=== PATIENT | male | born 1950 | race Caucasian/White ===

== ENCOUNTER 2016-03-30 15:57 | Inpatient (IN) | payer MEDICARE, BC ==
[~2016-03-30] VITALS: Ht 182.9 cm; Wt 117.5 kg
[~2016-03-30 15:57] MED LIST: CARV3.125 PO; EFFE150C PO; FOLI1 PO; LISI5 PO; NORC10TA2 PO; ONDA8 PO; OXYB5TAB PO; OXYC1TAB PO; RIVA20 PO; SPIR50TA21 PO; ZOLP10TA3 PO; ZYRT10TA12 PO
[2016-03-30 16:00] VITALS: BP 112/64; PULSE 105; RESP 14; TEMP 97.7; O2SAT 94
[2016-03-30 16:35] VITALS: RESP 18; O2SAT 98
--- NOTE | 2016-03-30 17:01 | PD ---
HPI Chief Complaint: General Weakness Time Seen by Provider: 16:13 Travel History International Travel<30 days: No Contact w/Intl Traveler<30days: No Traveled to known affect area: No History of Present Illness HPI This is a 65-year-old gentleman with an unfortunate history of CLL leukemia, metastatic renal cell carcinoma, who presents today with complaints of profound generalized weakness. The patient states that over the last 2 days, he's been unable to ambulate secondary to global weakness. Patient also reports a mechanical fall 2 days ago where he struck his head. He also reports lateral neck pain bilaterally. He recently came down to the [facility] from [place]. He is established with Dr. Marko Choi for his chemotherapy that is arranged in conjunction with his oncologist in [place]. The patient previously was seen at the [email or web address]] by Dr. Voss, one of the [facility] residents. The patient denies any fevers, chills. He denies any nausea vomiting diarrhea. He was in treated for C. difficile colitis in [place]. The patient denies any watery diarrhea at this time. He does report that his urine is darker than normal and is less output than normal. Patient also reports that he has pain on his skin over his entire body. He states it hurts when he touches skin anywhere on his body. The patient's ex- is at the bedside states that she believes that he may have had a metastatic lesion in his brain as well. The patient does not corroborate this however he is vague in his history. PFSH Past Medical History Hx Anticoagulant Therapy: Yes Anemia: Yes Arthritis: Yes Asthma: No Atrial Fibrillation: Yes Autoimmune Disease: No Blood Disorders: No Anxiety: Yes Depression: Yes Heart Rhythm Problems: Yes (AFIB) Cancer: Yes (KIDNEY AND LUNG CA) Cardiovascular Problems: Yes High Cholesterol: Yes Chemotherapy: Yes (LEUKEMIA/ LEFT KIDNEY CA/ LUNG CA) Chest Pain: Yes Congestive Heart Failure: Yes COPD: No Cerebrovascular Accident: No Diabetes: Yes (history of diabetes ) Patient Takes Glucophage: No Diminished Hearing: No Endocrine: Yes GERD: Yes Genitourinary: Yes (kidney cancer) Headaches: Yes Hiatal Hernia: Yes Hypertension: Yes Immune Disorder: No Implanted Vascular Access Dvce: No Kidney Stones: No Musculoskeletal: Yes Neurologic: Yes Psychiatric: Yes Reproductive: No Respiratory: Yes Immunizations Current: Yes Migraines: No Pneumonia: Yes (hx) Radiation Therapy: No Renal Failure: Yes Seizures: No Sickle Cell Disease: No Sleep Apnea: Yes Thyroid Disease: No Triglycerides - High: Yes Ulcer: No Tetanus Vaccination: < 5 Years Past Surgical History Abdominal Surgery: Yes (PART OF KIDNEY REMOVED (CA)) AICD: No Arteriovenous Shunt: No Body Medical Devices: screws in back Cardiac Surgery: No Ear Surgery: No Endocrine Surgery: No Eye Surgery: No Genitourinary Surgery: No Gynecologic Surgery: No Insulin Pump: No Joint Replacement: No Neurologic Surgery: No Oral Surgery: No Pacemaker: No Thoracic Surgery: No Other Surgery: Yes (left kidney removal) Social History Alcohol Use: No Tobacco Use: No Substance Use: No Allergies-Medications (Allergen,Severity, Reaction): Coded Allergies: Morphine (Unverified Adverse Reaction, Severe, VOMITING, 03/30/16) Reported Meds & Prescriptions Reported Meds & Active Scripts Active Review of Systems Except as stated in HPI: all other systems reviewed are Neg General / Constitutional: No: Fever Eyes: No: Drainage, Redness HENT: Positive: Headaches (right frontal), Lightheadedness, Neck Pain ( bilateral lateral), Other (the patient does report full sensation in his ears bilaterally.), No: Ear Discharge, Earache Cardiovascular: No: Chest Pain or Discomfort, Palpitations Respiratory: Positive: Shortness of Breath (with ambulation), No: Cough Gastrointestinal: Positive: Other (Shola history of C. difficile colitis), No : Nausea, Vomiting, Diarrhea, Abdominal Pain Genitourinary: Positive: Decreased Urinary Output (with darker urine color.), No: Dysuria Musculoskeletal: Positive: Weakness (Toprol weakness), No: Edema Skin: Positive Other (sensitive painful skin to touch over entire body.) Neurologic: Positive: Weakness, Headache (from fall 2 days ago), No: Dizziness , Syncope Physical Exam Narrative GENERAL: Well-developed well-nourished gentleman who appears extremely weak on exam. SKIN: Warm and dry. HEAD: Abrasion to the right forehead. Normocephalic. EYES: No scleral icterus. No injection or drainage. ENT: No nasal bleeding or discharge. Mucous membranes pink and moist. NECK: Trachea midline. No JVD. CARDIOVASCULAR: Rate in the low 90s. There does appear to be some irregularity noted. No ectopy or murmurs appreciated RESPIRATORY: No accessory muscle use. Clear to auscultation. Breath sounds equal bilaterally. Decreased weak respiratory effort GASTROINTESTINAL: Abdomen soft, non-tender, nondistended. MUSCULOSKELETAL: No obvious deformities. No clubbing. No cyanosis. No edema. No lesions or rash noted NEUROLOGICAL: Awake and alert but weak. No obvious cranial nerve deficits. Motor grossly within equal in all 4 extremities. The patient reports extreme weakness and exam is limited. Normal speech. PSYCHIATRIC: Appropriate mood and affect; insight and judgment normal. Data Data Last Documented VS Vital Signs Date Time Temp Pulse Resp B/P Pulse Ox O2 Delivery O2 Flow Rate FiO2 03/30/16 18:00 98.0 92 17 118/77 99 Room Air Orders Electrocardiogram (03/30/16 ) Complete Blood Count With Diff (03/30/16 16:29) Comprehensive Metabolic Panel (03/30/16 16:29) Urinalysis - C+S If Indicated (03/30/16 16:29) Thyroid Stimulating Hormone (03/30/16 16:29) Chest, Single Ap (03/30/16 16:29) Iv Access Insert/Monitor (03/30/16 16:29) Ecg Monitoring (03/30/16 16:29) Oximetry (03/30/16 16:29) Ct Brain W & W/O Iv Contrast (03/30/16 ) Ct Cerv Spine W/O Contrast (03/30/16 ) Sodium Chlor 0.9% 1000 Ml Inj (Ns 1000 M (03/30/16 18:00) Ceftriaxone Inj (Rocephin Inj) (03/30/16 18:30) Azithromycin Inj (Zithromax Inj) (03/30/16 18:30) Iodixanol 320 Inj (Rad Ct) (Visipaque 32 (03/30/16 18:32) Labs Laboratory Tests Test 03/30/16 16:00 White Blood Count 46.3 TH/MM3 Red Blood Count 2.22 MIL/MM3 Hemoglobin 9.3 GM/DL Hematocrit 27.8 % Mean Corpuscular Volume 125.0 FL Mean Corpuscular Hemoglobin 41.8 PG Mean Corpuscular Hemoglobin 33.4 % Concent Red Cell Distribution Width 29.0 % Platelet Count 123 TH/MM3 Mean Platelet Volume 12.0 FL Neutrophils (%) (Auto) % Lymphocytes (%) (Auto) % Monocytes (%) (Auto) % Eosinophils (%) (Auto) % Basophils (%) (Auto) % Neutrophils # (Auto) TH/MM3 Lymphocytes # (Auto) TH/MM3 Monocytes # (Auto) TH/MM3 Eosinophils # (Auto) TH/MM3 Basophils # (Auto) TH/MM3 CBC Comment AUTO DIFF Differential Total Cells 100 Counted Neutrophils % (Manual) 7 % Band Neutrophils % 1 % Lymphocytes % 88 % Monocytes % 4 % Neutrophils # (Manual) 3.7 TH/MM3 Differential Comment FINAL DIFF MANUAL Smudge Cells PRESENT Platelet Estimate LOW Platelet Morphology Comment NORMAL Ovalocytes 1+ Sodium Level 136 MEQ/L Potassium Level 4.9 MEQ/L Chloride Level 98 MEQ/L Carbon Dioxide Level 24.6 MEQ/L Anion Gap 13 MEQ/L Blood Urea Nitrogen 23 MG/DL Creatinine 1.35 MG/DL Estimat Glomerular Filtration 53 ML/MIN Rate Random Glucose 122 MG/DL Calcium Level 8.4 MG/DL Total Bilirubin 1.5 MG/DL Aspartate Amino Transf 49 U/L (AST/SGOT) Alanine Aminotransferase 30 U/L (ALT/SGPT) Alkaline Phosphatase 198 U/L Total Protein 5.9 GM/DL Albumin 2.6 GM/DL Thyroid Stimulating Hormone 4.440 uIU/ML 3rd Gen [facility] Medical Decision Making Medical Screen Exam Complete: Yes Emergency Medical Condition: Yes Differential Diagnosis Pneumonia versus UTI versus dehydration versus electrolyte abnormality versus anemia versus worsening metastatic disease. Narrative Course 65 year-old gentleman unfortunate history of CLL leukemia, renal so with metastases to the lungs, who presents today with complaints of global generalized weakness. He was, chills. He denies any productive cough. The patient's chest x-ray shows what appears to be an obstructive pneumonia. CT the brain is negative for acute intracranial process. White count is elevated in the 44,000 which is consistent with his previous blood work from the CLL. He does have acute kidney injury where his creatinine has elevated from the 1. once to the 1.5. He's been started on Rocephin and Zithromax for the pneumonia. He's also been started and I V fluids. Given his complexity of his history and illness, he will be made a full admission. The case been discussed with [facility]. Danielson, [facility], who has been gracious enough to admit the patient to her service. Nurse's notes were reviewed. This includes past family and surgical history as well as past medical history. Diagnosis Primary Impression: Pneumonia Additional Impressions: Acute on chronic renal insufficiency Weakness A-fib Anemia Scripts Unable to Obtain Active Prescriptions or Reported Meds Rene Araya MD Mar 30, 2016 17:01
[2016-03-30 17:10] LABS: HEMATOCRIT 27.8 % (39.0-51.0); MEAN CORPUSCULAR HEMOGLOBIN 41.8 PG (27.0-34.0); MEAN CORPUSCULAR HGB CONC 33.4 % (32.0-36.0); PLATELET COUNT 123 TH/MM3 (150-450); RED BLOOD COUNT 2.22 MIL/MM3 (4.50-5.90); WHITE BLOOD COUNT 46.3 TH/MM3 (4.0-11.0)
[2016-03-30 17:11] LABS: ALT (GPT) 30 U/L (12-78); ANION GAP 13 MEQ/L (5-15); AST (GOT) 49 U/L (15-37); BICARBONATE 24.6 MEQ/L (21.0-32.0); BLOOD UREA NITROGEN 23 MG/DL (7-18); CHLORIDE 98 MEQ/L (98-107); GLOMERULAR FILTRATION RATE 53 ML/MIN (>89); POTASSIUM 4.9 MEQ/L (3.5-5.1); SODIUM (NA) 136 MEQ/L (136-145)
--- NOTE | 2016-03-30 17:11 | RADRPT ---
EXAM DATE/TIME: 03/30/2016 16:32 [facility] COMPARISON: CHEST SINGLE AP, June 11, 2015, 17:37. INDICATIONS : Short of breath MEDICAL HISTORY : Leukemia. Carcinoma, lung. Carcinoma, renal cell. SURGICAL HISTORY : None. ENCOUNTER: Initial ACUITY: 1 day PAIN SCORE: 0/10 LOCATION: Bilateral chest FINDINGS: A single AP semierect view of the chest was obtained and demonstrates a new small to moderate left ef fusion with mild consolidation in the left lung base and infrahilar region with air bronchograms. The re is faint nodularity in the right upper lobe and along the lateral chest wall. The right lung remai ns clear. The bony thorax is intact. The heart size is within normal limits. CONCLUSION: 1. New left pleural effusion with consolidation the left lung base. The findings could indicate pneum onia which may be postobstructive given the history of lung cancer. 2. Faint nodularity in the left lung which could represent metastatic disease. Ziyad Lyon MD on March 30, 2016 at 17:07 Board Certified Radiologist. This report was verified electronically.
[2016-03-30 17:21] LABS: ALKALINE PHOSPHATASE 198 U/L (45-117); TOTAL BILIRUBIN ADULT 1.5 MG/DL (0.2-1.0)
[2016-03-30 17:27] LABS: HEMO FLAGS AUTO DIFF
[2016-03-30 17:58] LABS: BANDS 1 % (0-6); NEUTROPHIL # MANUAL DIFF 3.7 TH/MM3 (1.8-7.7); WBC DIFF SAMPLE 100
[2016-03-30 18:00] VITALS: BP_SYST 118; BP_SYST 154; BP_DIAS 66; BP_DIAS 77; PULSE 87; PULSE 92; RESP 17; TEMP 98; O2SAT 98; O2SAT 99
[2016-03-30] MEDS ORDERED: SODIUM CHLOR 0.9% 1000 ML INJ 1,000 ML IV SCH (18:00)
[2016-03-30 18:04] LABS: OVALOCYTES 1+ (NORMAL); PLATELET ESTIMATE SMEAR LOW (NORMAL); PLATELET MORPHOLOGY NORMAL (NORMAL); SCAN/DIFF FINAL DIFF MANUAL; SMUDGE CELLS PRESENT PRESENT
[2016-03-30 18:06] LABS: POLYS (SEG NEUTROPHILS) 7 % (16-70)
[2016-03-30] MEDS ORDERED: cefTRIAXone INJ 1,000 MG in SODIUM CHLORIDE 0.9% INJ 100 ML IV ONE (18:30)
[2016-03-30] MEDS ORDERED: AZITHROMYCIN INJ 500 MG in SODIUM CHLOR 0.9% 250 ML INJ 250 ML IV ONE (18:30)
[2016-03-30] MEDS ORDERED: IODIXANOL 320 MG/ML 10 ML VIAL (for Rad CT) IV ONE (18:32)
--- NOTE | 2016-03-30 18:55 | RADRPT ---
EXAM DATE/TIME: 03/30/2016 18:14 [facility] COMPARISON: No previous studies available for comparison. INDICATIONS : Trauma, fall. Possible metastatic disease. IV CONTRAST: 50 cc Visipaque (iodixanol) IV RADIATION DOSE: 32.42 CTDIvol (mGy) MEDICAL HISTORY : Cardiovascular disease. Hypertension. Diabetes mellitus type 2.Carcinoma, renal. Leukemia. SURGICAL HISTORY : Nephrectomy, left. ENCOUNTER: Initial ACUITY: 2 days PAIN SCALE: 5/10 LOCATION: cranial TECHNIQUE: Multiple contiguous axial images were obtained of the head. Using automated exposure control and adj ustment of the mA and/or kV according to patient size, radiation dose was kept as low as reasonably a chievable to obtain optimal diagnostic quality images. FINDINGS: CEREBRUM: The ventricles are normal for age. No evidence of midline shift, cerebral edema or blood products. No extra-axial fluid collections are seen. POSTERIOR FOSSA: The cerebellum and brainstem are intact. The 4th ventricle is midline. The cerebellar pontine angle is unremarkable. EXTRACRANIAL: The visualized portion of the orbits is intact. SKULL: The calvaria is intact. No evidence of skull fracture. POST CONTRAST: No abnormal areas of parenchymal or dural enhancement. No evidence of blood-brain barrier breakdown. CONCLUSION: Normal examination. Bill Branch MD on March 30, 2016 at 18:52 Board Certified Radiologist. This report was verified electronically.
--- NOTE | 2016-03-30 18:58 | RADRPT ---
EXAM DATE/TIME: 03/30/2016 18:14 [facility] COMPARISON: No previous studies available for comparison. INDICATIONS : Trauma, fall. RADIATION DOSE: 15.27 CTDIvol (mGy) MEDICAL HISTORY : Cardiovascular disease. Hypertension. Diabetes mellitus type 2. SURGICAL HISTORY : Nephrectomy, left. ENCOUNTER: Initial ACUITY: 2 days PAIN SCALE: 5/10 LOCATION: neck TECHNIQUE: Volumetric scanning of the cervical spine was performed. Multiplanar reconstructions in the sagittal, coronal and oblique axial planes were performed. Using automated exposure control and adjustment o f the mA and/or kV according to patient size, radiation dose was kept as low as reasonably achievable to obtain optimal diagnostic quality images. FINDINGS: There is moderate to severe degenerative disc disease in the lower cervical spine with slight reversa l of normal cervical lordosis. No acute fracture or significant spondylolisthesis. Mild AP canal sten osis at C5-6-7. No prevertebral soft tissue swelling. CONCLUSION: 1. No acute findings. Mild spinal stenosis in the lower cervical spine Bill Branch MD on March 30, 2016 at 18:54 Board Certified Radiologist. This report was verified electronically.
[2016-03-30 19:12] VITALS: BP 118/71; PULSE 88; RESP 20; O2SAT 94
[2016-03-30] MEDS ORDERED: ACETAMINOPHEN 325 MG TAB PO PRN (19:30)
[2016-03-30] MEDS ORDERED: SODIUM CHLORIDE 0.9% FLUSH 5 ML FLUSH FLUSH PRN (19:30)
[2016-03-30] MEDS ORDERED: ACETAMINOPHEN/HYDROcodone 325 MG/5 MG TAB PO PRN (19:30)
[2016-03-30] MEDS ORDERED: ONDANSETRON HCL 4 MG/2 ML VIAL IVP PRN (19:30)
[2016-03-30] MEDS ORDERED: RESP: ALBUTEROL 2.5 MG/IPRATROPIUM 0.5 MG NEB (PRN) NEB (19:30)
[2016-03-30] MEDS ORDERED: Vancomycin Consult Pharmacy 1 EA OTHER SCH (19:30)
[2016-03-30] MEDS ORDERED: BISACODYL 10 MG SUPP PR PRN (19:30)
--- NOTE | 2016-03-30 19:30 | HHI.HP ---
[facility] Unknown Admission Diagnosis pneumonia, a [employer], malignancy Diagnoses: (1) Sepsis Diagnosis: Principal (2) PNA (pneumonia) Diagnosis: Principal (3) C. 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 Per pt and Ex- he had been up in [place] where he resides half of the year, was hospitalized and diagnosed w/ C Diff Colitis and sent to Rehab facility. Per Ex- pt wasn't happy at Rehab facility and had friend drive him back down to [facility]. Ex- checks up on him and today was unable to stand him up due to weakness. Follows w/ Dr. Corral, currently on Chemotherapy for Renal Cell CA. On arrival, BP 112/64, HR 105, O2 sat 94% on RA, Afebrile. W WBC 46.3, previously 48.3 on 03/28/16. Creatinine 1.35, previously 1.50 on 03/28/16. UA with trace LE and mild bacteriuria. CXR with new left pleural effusion and consolidation of left lung base, possibly pneumonia versus postobstructive, faint nodularity left lung which could represent metastatic disease. CT Head with no acute findings. CT Neck with no acute findings. Per Ex-, pt told he had a "brain tumor" up in [place]. S/p Rocephin/Zithro in ER. Review of Systems Except as stated in HPI: all other systems reviewed are Neg ROS: 14 point review of systems otherwise negative. Past Family Social History Past Medical History PMH: CLL, h/o PE on Xarelto, Renal Cell CA w/ Pulmonary Mets, s/p Left Nephrectomy, CAD, COPD, C Diff Colitis and DM Past Surgical History PAST SURGICAL HISTORY: Vasectomy, Left Nephrectomy 2012, Bone Marrow Biopsy Allergies: Coded Allergies: Morphine (Unverified Adverse Reaction, Severe, VOMITING, 03/30/16) Family History PAST FAMILY HISTORY: Reviewed. No h/o DM or CAD Social History PAST SOCIAL HISTORY: Negative for alcohol, tobacco or drugs. Physical Exam Vital Signs Vital Signs Date Time Temp Pulse Resp B/P Pulse Ox O2 Delivery O2 Flow Rate FiO2 03/30/16 19:12 88 20 118/71 94 Room Air 03/30/16 18:00 98.0 92 17 118/77 99 Room Air 03/30/16 16:35 18 98 Room Air 03/30/16 16:20 87 18 98 Room Air 03/30/16 16:00 97.7 105 14 112/64 94 Room Air Physical Exam PE: GENERAL: Middle-aged male in no acute distress. Ex- at bedside. HEENT: PERRLA, EOMI. No scleral icterus or conjunctival pallor. No lid lag or facial droop. Right forehead abrasion. CARDIOVASCULAR: Regular rate and rhythm. No obvious murmurs to auscultation. No chest tenderness to palpation. RESPIRATORY: No obvious rhonchi or wheezing. Clear to auscultation. Breath sounds equal bilaterally. GASTROINTESTINAL: Abdomen soft, non-tender, nondistended. BS normal. MUSCULOSKELETAL: Extremities without clubbing, cyanosis, or edema. No obvious deformities. NEUROLOGICAL: Awake, alert and oriented x4. No focal neurologic deficits. Moving both upper and lower extremities spontaneously, very weak. Laboratory Laboratory Tests Test 03/30/16 16:00 White Blood Count 46.3 Red Blood Count 2.22 Hemoglobin 9.3 Hematocrit 27.8 Mean Corpuscular Volume 125.0 Mean Corpuscular Hemoglobin 41.8 Mean Corpuscular Hemoglobin 33.4 Concent Red Cell Distribution Width 29.0 Platelet Count 123 Mean Platelet Volume 12.0 Neutrophils (%) (Auto) Lymphocytes (%) (Auto) Monocytes (%) (Auto) Eosinophils (%) (Auto) Basophils (%) (Auto) Neutrophils # (Auto) Lymphocytes # (Auto) Monocytes # (Auto) Eosinophils # (Auto) Basophils # (Auto) CBC Comment AUTO DIFF Differential Total Cells 100 Counted Neutrophils % (Manual) 7 Band Neutrophils % 1 Lymphocytes % 88 Monocytes % 4 Neutrophils # (Manual) 3.7 Differential Comment FINAL DIFF MANUAL Smudge Cells PRESENT Platelet Estimate LOW Platelet Morphology Comment NORMAL Ovalocytes 1+ Sodium Level 136 Potassium Level 4.9 Chloride Level 98 Carbon Dioxide Level 24.6 Anion Gap 13 Blood Urea Nitrogen 23 Creatinine 1.35 Estimat Glomerular Filtration 53 Rate Random Glucose 122 Calcium Level 8.4 Total Bilirubin 1.5 Aspartate Amino Transf 49 (AST/SGOT) Alanine Aminotransferase 30 (ALT/SGPT) Alkaline Phosphatase 198 Total Protein 5.9 Albumin 2.6 Thyroid Stimulating Hormone 4.440 3rd Gen Result Diagram: 03/30/16 1600 03/30/16 1600 Assessment and Plan Problem List: (1) Sepsis ICD Code: A41.9 Status: Acute (2) PNA (pneumonia) ICD Code: J18.9 Status: Acute (3) C. difficile colitis ICD Code: A04.7 Status: Acute (4) Muscular deconditioning ICD Code: R29.898 Status: Acute (5) Renal insufficiency ICD Code: N28.9 Status: Acute (6) Renal cell carcinoma ICD Code: C64.9 Status: Acute (7) DM (diabetes mellitus) ICD Code: E11.9 Status: Chronic (8) CLL (chronic lymphocytic leukemia) ICD Code: C91.10 Status: Acute Assessment and Plan A/P: 1. Sepsis: HR 105, WBC 46 although underlying CLL, Source-PNA. S/p Rocephin/ Zithro. Obtain Blood Cultures, start Vanc/Cefepime as Immunocompromised on Chemotherapy. Follow up cultures. 2. PNA: CXR w/ new left pleural effusion and consolidation of left lung base with faint nodularity and left lung possibly metastatic disease, images reviewed by me. Known h/o Renal Cell w/ Pulmonary Mets. Continue IV Abx, DuoNeb prn. 3. C Diff Colitis: s/p diagnosis during recent admit in [place], currently on Flagyl. C Diff antigen positive, persistent infection despite improved diarrhea. Isolation. Continue Flagyl PO. 4. Deconditioning: Likely Multifactorial-CLL, Renal Cell w/ Mets, PNA, C Diff. Unable to stand due to profound weakness. PT for german/tx. Case Management. Pt reluctant to discuss Hospice at this time. 5. Renal Insufficiency: Acute on Chronic. Creatinine 1.35, previously 1.50 on 03/28/16. U/a w/ mild bacteriuria. IVF, repeat labs in am. 6. Renal Cell CA: w/ Pulmonary Mets. Ex- notes imaging in [place] positive for "brain tumor", no records available at this time. CT Head w/ no acute findings, images reviewed by me. Will check MRI Brain for further eval. Hold anticoagulation for possible [employer] mets-on Xarelto for h/o PE. Consult Dr. Corral for further recommendations. 7. CLL: Stable. Following w/ Dr. Corral, will consult as above. 8. DM: Sliding scale w/ Accu-Cheks. Not on home meds per medication list. 9. DVT Prophylaxis: SCD/Teds. 10. Social work for d/c planning as needed 11. Case discussed w/ ER physician at length. Physician Certification 2 Midnight Certification Type: Admission for Inpatient Services Order for Inpatient Services The services are ordered in accordance with Medicare regulations or non- Medicare payer requirements, as applicable. In the case of services not specified as inpatient-only, they are appropriately provided as inpatient services in accordance with the 2-midnight benchmark. Estimated LOS (days): 2 days is the estimated time the patient will need to remain in the hospital, assuming treatment plan goals are met and no additional complications. Post-Hospital Plan: Not yet determined Yumiko Toney MD Mar 30, 2016 19:30
[2016-03-30] MEDS ORDERED: VANCOMYCIN INJ 2,500 MG in SODIUM CHLORID 0.9% 500 ML INJ 500 ML IV ONE (20:00)
[2016-03-30] MEDS: SODIUM CHLOR 0.9% 1000 ML INJ 1,000 ML IV SCH (20:18)
[2016-03-30 20:29] LABS: BLOOD, URINE NEG (NEG); COMMENT (UR) CULT NOT INDICATED; CULTURE IF INDICATED CULT NOT INDICATED; GLUCOSE,URINE NEG (NEG); HYALINE CAST, URINE 8 /lpf (RARE); KETONE, URINE NEG (NEG); NITRITE,URINE NEG (NEG); SQUAMOUS EPITHELIAL CELL URINE <1 /hpf (0-5); URINE COLOR YELLOW (YELLW/STRAW)
[2016-03-30] MEDS: SODIUM CHLORIDE 0.9% FLUSH 5 ML FLUSH FLUSH SCH (21:37)
[2016-03-30] MEDS: metroNIDAZOLE 500 MG TAB PO SCH (22:09)
[2016-03-30] MEDS: HYDROmorphone HCL PF 1 MG/ML VIAL IV PRN (22:09)
[2016-03-30 23:30] VITALS: BP 142/81
[2016-03-30] MEDS: ZOLPIDEM TARTRATE 5 MG TAB PO PRN (23:52)
[2016-03-31] VITALS (11 sets, daily range): BP systolic 131–163; BP diastolic 74–97; PULSE 80–91; RESP 16–20; TEMP 96–98.4; O2SAT 92–97
[2016-03-31] MEDS: HYDROmorphone HCL PF 1 MG/ML VIAL IV PRN (03:40)
[2016-03-31] MEDS: metroNIDAZOLE 500 MG TAB PO SCH ×3 (05:31→21:26)
[2016-03-31] MEDS: SODIUM CHLOR 0.9% 1000 ML INJ 1,000 ML IV SCH ×2 (05:31→17:55)
[2016-03-31 06:54] LABS: HEMATOCRIT 22.2 % (39.0-51.0); MEAN CELL VOLUME 122.7 FL (80.0-100.0); MEAN CORPUSCULAR HEMOGLOBIN 41.1 PG (27.0-34.0); MEAN CORPUSCULAR HGB CONC 33.5 % (32.0-36.0); PLATELET COUNT 86 TH/MM3 (150-450); RED BLOOD COUNT 1.81 MIL/MM3 (4.50-5.90); RED CELL DISTRIBUTION WIDTH 28.3 % (11.6-17.2); WHITE BLOOD COUNT 32.7 TH/MM3 (4.0-11.0)
[2016-03-31 07:12] LABS: CALCIUM-PROTEIN CORRECTED 8.6 MG/DL (8.5-10.1); POTASSIUM 3.9 MEQ/L (3.5-5.1); TOTAL BILIRUBIN ADULT 0.9 MG/DL (0.2-1.0)
[2016-03-31 07:16] LABS: HEMO FLAGS AUTO DIFF
[2016-03-31] MEDS ORDERED: SODIUM CHLOR 0.9% 250 ML INJ 250 ML IV ONE (07:30)
[2016-03-31] MEDS ORDERED: ACETAMINOPHEN 325 MG TAB PO PRN (07:30)
[2016-03-31] MEDS ORDERED: diphenhydrAMINE HCL 25 MG CAP PO PRN (07:30)
[2016-03-31 09:06] LABS: EOSINOPHILS 1 % (0-4); NEUTROPHIL # MANUAL DIFF 0.7 TH/MM3 (1.8-7.7); POLYS (SEG NEUTROPHILS) 2 % (16-70); WBC DIFF SAMPLE 100
[2016-03-31 09:08] LABS: SCAN/DIFF FINAL DIFF MANUAL; SMUDGE CELLS PRESENT PRESENT
[2016-03-31 09:09] LABS: PLATELET ESTIMATE SMEAR LOW (NORMAL); PLATELET MORPHOLOGY NORMAL (NORMAL)
[2016-03-31] MEDS ORDERED: GADODIAMIDE PF 287 MG/ML 20 ML VIAL (for RAD MRI) IV ONE (09:32)
--- NOTE | 2016-03-31 10:12 | RADRPT ---
EXAM DATE/TIME: 03/31/2016 09:02 [facility] COMPARISON: No previous studies available for comparison. INDICATIONS : Lymphoma. ORAL CONTRAST: No oral contrast ingested. RADIATION DOSE: 19.00 CTDIvol (mGy) ; Combined studies - Thorax/Abdomen/Pelvis MEDICAL HISTORY : Cardiovascular disease. Hypertension. Gastroesophageal reflux disease.Diabetes. Leukemia. Kidney canc er. Lung cancer. SURGICAL HISTORY : Nephrectomy, left. Back surgery. ENCOUNTER: Initial ACUITY: 1 day PAIN SCALE: 0/10 LOCATION: abdomen TECHNIQUE: Volumetric scanning of the abdomen and pelvis was performed. Using automated exposure control and ad justment of the mA and/or kV according to patient size, radiation dose was kept as low as reasonably achievable to obtain optimal diagnostic quality images. FINDINGS: Pleural and parenchymal changes are seen on the left. Moderate fluid is noted. The right lung base is clear. The liver is free of focal defects. The spleen, pancreas, adrenals are unremarkable. There is no left kidney. 3.5 cm cyst is seen on the right kidney. . There is 3.9 cm mesenteric mass at the root of mesentery on the left. Pelvic contents are unremarkable Review of bone windows reveals only degenerative changes. CONCLUSION: 3.9 cm mesenteric mass root of mesentery on the left not imaged previously. I have n o recent films for comparison. Braeden Edward MD FACR on March 31, 2016 at 10:06 Board Certified Radiologist. This report was verified electronically.
--- NOTE | 2016-03-31 10:23 | RADRPT ---
EXAM DATE/TIME: 03/31/2016 09:02 [facility] COMPARISON: CT PULMONARY ANGIOGRAM, May 07, 2014, 11:01. INDICATIONS: Lymphoma. RADIATION DOSE: 19.00 CTDIvol (mGy) ; Combined studies - Thorax/Abdomen/Pelvis MEDICAL HISTORY: Cardiovascular disease. Hypertension. Gastroesophageal reflux disease. Diabetes. Leukemia. Kidney can cer. Lung cancer. SURGICAL HISTORY: Nephrectomy, left. Back surgery. ENCOUNTER: Initial ACUITY: 1 day PAIN SCALE: 0/10 LOCATION: Chest TECHNIQUE: Volumetric scanning of the chest was performed. Using automated exposure control and adjustment of t he mA and/or kV according to patient size, radiation dose was kept as low as reasonably achievable to obtain optimal diagnostic quality images. FINDINGS: Again seen is the large pleural effusion on the left. There is some loculation to this fluid. The right lung is clear. Very minimal parenchymal changes are seen along the pleura on the right. There is no axially adenopathy. There is minimal nonspecific mediastinal adenopathy present in the p retracheal region. This has improved in the interval when compared to the CT of the chest dated 05/07/14. CONCLUSION: 1. Increasing pleural changes on the left. 2. Decreasing pleural and parenchymal changes on the right. Braeden Edward MD FACR on March 31, 2016 at 10:10 Board Certified Radiologist. This report was verified electronically.
[2016-03-31] MEDS ORDERED: HYDROmorphone HCL PF 1 MG/ML VIAL IV PRN (10:30)
[2016-03-31] MEDS: CEFEPIME INJ 1,000 MG in SODIUM CHLORIDE 0.9% INJ 100 ML IV SCH ×2 (10:40→21:26)
[2016-03-31] MEDS: SODIUM CHLORIDE 0.9% FLUSH 5 ML FLUSH FLUSH SCH ×2 (10:43→21:27)
[2016-03-31 11:23] LABS: RETIC % 2.1 % (0.4-3.0)
[2016-03-31 11:24] LABS: REVIEW FLAG FINAL
--- NOTE | 2016-03-31 11:31 | MB ---
cc: HAYDEN BLACKWOOD M.D. DATE OF CONSULTATION 03/31/[address] Mae HISTORY OF PRESENT ILLNESS The patient is a 66-year-old male with a history of metastatic renal cell carcinoma currently on Votrient who presented to the hospital with increased weakness and fatigue. The patient stated that over the last two days he is just getting weaker to the point he could not even lift up his leg. His ex- brought him to the hospital. The patient has had a history of metastatic renal cell carcinoma with metastasis to the lung. He has been on Votrient. He also has a history of chronic lymphocytic leukemia, but is currently not under any treatment. He was in [place] for the summer and he was found to have progression of metastatic renal cell carcinoma with a new development of malignant and pleural effusion. He was also admitted to the hospital for C-difficile colitis. When I saw him in February, he started having diarrhea again and found to have recurrent C-difficile colitis. He was given Flagyl with a good response. When I saw him last week, his diarrhea had resolved. He then restarted taking the Votrient last week. He was doing well until two days ago when he suddenly became very weak. He denies any fever, chills or night sweat. He denies any chest pain or palpitation. He denies significant shortness of breath or cough. He had mild nausea. Denies any abdominal pain. Denies any significant diarrhea. Denies abdominal pain. Denies any dysuria or hematuria. Denies any headache. Denies any visual changes, focal numbness or weakness. He has diffuse muscle ache in his arm and leg. PAST MEDICAL HISTORY 1. Metastatic renal cell carcinoma 2. Chronic lymphocytic leukemia 3. C-difficile colitis 4. Pulmonary embolism in 2013 current on Xarelto 5. Coronary disease 6. Chronic obstructive pulmonary disease 7. Diabetes mellitus 8. Anemia 9. Anxiety 10. Osteoarthritis PAST SURGICAL HISTORY 1. Left nephrectomy 2012 2. Vasectomy 3. Bone marrow biopsy FAMILY HISTORY Noncontributory SOCIAL HISTORY Denies tobacco or alcohol use. He spends his winter in [place]. ALLERGIES MORPHINE CURRENT MEDICATIONS 1. Cefepime 2. Ambien 3. Flagyl 4. Votrient which is on hold. 5. He also had a dose of Ceftriaxone. 6. Vancomycin 7. Azithromycin REVIEW OF SYSTEMS CONSTITUTIONAL: He has increased weakness. Denies any fever, chills, or night sweat. EYES: Denies any blurred vision or double vision. ENT: Denies any mouth sores or voice changes. CARDIOVASCULAR: No chest pressure or palpitations. RESPIRATORY: Denies shortness of breath or cough. GI: Denies significant diarrhea. He has nausea. He has abdominal pain. He denies melena or hematochezia. : No dysuria or hematuria. MUSCULOSKELETAL: Diffuse muscle ache. HEMATOLOGY: As above. ENDOCRINE: Negative. DERMATOLOGY: Negative. PSYCHIATRIC: Negative. NEUROLOGIC: Diffuse weakness. PHYSICAL EXAMINATION VITAL SIGNS: Temperature 97.3, blood pressure 150/88, O2 saturation 95%. GENERAL: He is alert and oriented x3. He still a little sleepy after taking a sedative. HEENT: Atraumatic, normocephalic. Pupils equal, round and reactive to light. Extraocular muscle intact. No scleral icterus. Oropharynx, dry mucosa. No lesion or thrush or mucositis. NECK: No thyromegaly. No palpable mass. LYMPHATICS: No palpable cervical, clavicular, axillary or inguinal lymph node. CARDIOVASCULAR: Regular S1-S2, no murmur. LUNGS: Clear to auscultation bilaterally without wheezing or rhonchi. ABDOMEN: Soft, nontender, positive bowel sounds. I could not palpate the liver or spleen. EXTREMITIES: No cyanosis, no clubbing or significant edema. He has diffuse muscle aches in the leg and arm. BACK: No paravertebral tenderness. SKIN: No rash or petechia. NEUROLOGIC: Exam is nonfocal. LABORATORY DATA Reviewed ASSESSMENT 1. Possible sepsis. He may have possible pneumonia. Chest x-ray showed a new left pleural effusion with consolidation in the left lung base which could be pneumonia. Clinically, he does not have significant shortness of breath or cough. He developed increased weakness over the last two days. He was started on empiric antibiotic. 2. Generalized weakness which started two days ago. This could be due to sepsis, but it could also be due to the Votrient. He started the Votrient last week after he took a break because of diarrhea. We will put Votrient on hold for now. 3. Metastatic renal cell carcinoma. He was first diagnosed in 2013 status post left nephrectomy. He was found to have a metastatic lung lesion. He was treated with Sutent, but had to stop due to side effects. He was started on Turicel, but developed progression of disease. He was then started on Votrient October 2014. He had developed liver failure and congestive heart failure and the dose was reduced. Last year the Votrient was temporarily put on hold because he developed significant anemia and possible pneumonitis. When he went back up to [place], he was found to have worsening left pleural effusion. He had a thoracentesis and found to have malignant pleural effusion consistent with metastatic renal cell carcinoma. He was then started back on Votrient 600 mg daily[address] His last CT scan in January reportedly showed stable disease. I am going to get another set of CT scans to further evaluate the lung to see if he has progression of disease or if he had developed a pneumonitis due to Votrient which could be causing his symptoms rather than pneumonia. 4. Right kidney mass. CT showed a 3.2 cm complex cyst which has been stable. 5. Chronic lymphocytic leukemia. He is currently under observation. His white blood cell count is stable at 46,000. He does have anemia and mild thrombocytopenia, but that may be due to Votrient rather than the chronic lymphocytic leukemia. 6. Anemia which is chronic and is likely a combination of Votrient, as well as CLL. Recently we did a workup for hemolysis which was unremarkable. This morning his hemoglobin had trended down to 7.5. I am going to repeat the hemolysis workup. We will give him a transfusion given that he is symptomatic. 7. Recent C-difficile colitis. He was treated for C-difficile colitis when he was in [place]. When he came down to [place] a few weeks ago, he had recurring diarrhea and found to have recurrent C-difficile colitis. He completed another course of Flagyl. He denies any diarrhea at this time. He has no abdominal pain. 8. History of pulmonary embolism 2013. He is currently on Xarelto. He has no new pulmonary symptoms. 9. Peripheral neuropathy from diabetes. 10. Osteoarthritis 11. Diabetes mellitus PLAN 1. Hold Votrient. 2. Arrange for a CT of the chest, abdomen and pelvis. 3. Continue empiric antibiotic. 4. Proceed with anemia workup. 5. Arrange for two units of packed red blood cell transfusion. Thank you Dr. Mae for asking us to see this patient. We will follow with you. MD JONATHAN Salazar/CECILIO /8:57 AM /11:10 AM MAGO
[2016-03-31 11:47] LABS: TRANSFERRIN IRON PROFILE 112 MG/DL (200-360)
[2016-03-31 12:12] LABS: FERRITIN 2296 NG/ML (26-388); LDH SERUM 305 U/L (87-241)
--- NOTE | 2016-03-31 12:23 | HHI.PR ---
Subjective Remarks Follow-up visit pneumonia, renal cancer on chemotherapy, history of PE on Xarelto, C. difficile colitis. Patient seen today. He went for MRI studies, CT of the abdomen and pelvis. Reports generalized pain, /10, states unable to even touch his skin secondary to pain. States he uses Holman at home when necessary. Reports formed stools but states he has C. difficile from the hospital in [place] and was treated for it for more than a month with Flagyl and also by mouth vancomycin. Otherwise, denies SOB/ dyspnea. Denies chest pain, palpitations, headaches, dizziness. Denies fevers, chills, n/v/d. Objective Vitals Vital Signs Date Time Temp Pulse Resp B/P Pulse Ox O2 Delivery O2 Flow Rate FiO2 03/31/16 08:10 81 03/31/16 08:00 98.1 84 20 131/77 92 03/31/16 04:00 97.3 83 18 150/88 95 03/31/16 00:29 97.7 91 18 149/89 94 03/30/16 23:30 86 18 142/81 93 03/30/16 19:12 88 20 118/71 94 Room Air 03/30/16 18:00 98.0 92 17 118/77 99 Room Air 03/30/16 16:35 18 98 Room Air 03/30/16 16:20 87 18 98 Room Air 03/30/16 16:00 97.7 105 14 112/64 94 Room Air I/O 03/30/16 03/30/16 03/30/16 03/31/16 03/31/16 03/31/16 07:00 15:00 23:00 07:00 15:00 23:00 Intake Total 200 ml 240 ml Output Total 380 ml Balance 200 ml -140 ml Intake Oral 200 ml 240 ml Output Urine Total 380 ml # Bowel Movements 0 1 Result Diagram: 03/31/16 0607 03/31/16 0607 Imaging Last Impressions Abdomen/Pelvis CT 03/31/16 0000 Signed Impressions: Service Date/Time: Thursday, March 31, 2016 09:02 - CONCLUSION: 3.9 cm mesenteric mass root of mesentery on the left not imaged previously. I have no recent films for comparison. Braeden Edward MD FACR Chest X-Ray 03/30/16 4489 Signed Impressions: Service Date/Time: March 16:32 - CONCLUSION: 1. New left pleural effusion with consolidation the left lung base. The findings could indicate pneumonia which may be postobstructive given the history of lung cancer. 2. Faint nodularity in the left lung which could represent metastatic disease. Ziyad Lyon MD Head CT 03/30/16 0000 Signed Impressions: Service Date/Time: March 18:14 - CONCLUSION: Normal examination. Bill Branch MD Cervical Spine CT 03/30/16 0000 Signed Impressions: Service Date/Time: March 18:14 - CONCLUSION: 1. No acute findings. Mild spinal stenosis in the lower cervical spine Bill Branch MD Objective Remarks GENERAL: This is a pale-appearing male, well-developed patient, appears uncomfortable. HEENT: Normocephalic. Pupils equal round and reactive. Nose without bleeding. Airway patent. NECK: Trachea midline. No JVD. Supple. CARDIOVASCULAR: Regular rate and rhythm without murmurs, gallops, or rubs. RESPIRATORY: Diminished bases. No wheezes, rales, or rhonchi. GASTROINTESTINAL: Abdomen soft, non-tender, nondistended. Bowel Sounds normoactive x4. MUSCULOSKELETAL: Extremities without clubbing, cyanosis, +1 bilateral lower extremity edema. NEUROLOGICAL: Awake and alert. Oriented x 3. No focal neuro deficit. MARQUEZ. Normal speech. Medications and IVs Current Medications Medications (Trade) Dose Ordered Sig/Asia Route Start Time Stop Time Status Last Admin Pharmacy Profile Note 0 ml @ 0 mls/hr UNSCH OTHER 03/30/16 19:30 Cefepime HCl 1000 mg/Sodium Chloride 100 ml @ 200 mls/hr Q12H IV 03/31/16 09:00 03/31/16 10:40 (NS 1000 ml Inj) 1,000 ml @ 100 mls/hr Q10H IV 03/30/16 20:00 03/30/16 20:18 (NS Flush) 2 ml UNSCH PRN FLUSH 03/30/16 19:30 (NS Flush) 2 ml BID FLUSH 03/30/16 21:00 03/31/16 10:43 (Zofran Inj) 4 mg Q6H PRN IVP 03/30/16 19:30 (Dulcolax Supp) 10 mg DAILY PRN OR 03/30/16 19:30 (Tylenol) 650 mg Q6H PRN PO 03/30/16 19:30 (Holman 5-325 Mg) 1 tab Q4H PRN PO 03/30/16 19:30 03/31/16 10:41 (Flagyl) 500 mg Q8HR PO 03/30/16 22:00 03/31/16 05:31 Zolpidem Tartrate 5 mg 5 mg HS PRN PO 03/30/16 22:15 03/30/16 23:52 (NS 250 ml Inj) 250 ml @ 15 mls/hr ONCE ONCE IV 03/31/16 07:30 04/01/16 00:09 (Dilaudid Pf Inj) 1 mg Q3H PRN IV 03/31/16 10:30 Acetaminophen/ Hydrocodone Bitart 1 tab 1 tab Q4H PRN PO 03/31/16 10:30 (Vancomycin Inj/ NS 500 ml Inj) 520 ml @ 250 mls/hr Q12H IV 03/31/16 12:00 03/31/16 12:43 Miscellaneous Information SPECIFIC LAB TO BE MUNA... ONCE ONCE XX 04/01/16 21:45 04/01/16 21:46 A/P Problem List: (1) Sepsis ICD Code: A41.9 Status: Acute (2) PNA (pneumonia) ICD Code: J18.9 Status: Acute (3) C. difficile colitis ICD Code: A04.7 Status: Acute (4) Muscular deconditioning ICD Code: R29.898 Status: Acute (5) Renal insufficiency ICD Code: N28.9 Status: Acute (6) Renal cell carcinoma ICD Code: C64.9 Status: Acute (7) DM (diabetes mellitus) ICD Code: E11.9 Status: Chronic (8) CLL (chronic lymphocytic leukemia) ICD Code: C91.10 Status: Acute Assessment and Plan Patient is a 65-year-old white male who came into the hospital with complaints of profound weakness 2 days. Sepsis: HR 105, WBC 46 although underlying CLL, Source-PNA. S/p Rocephin/ Zithro. Also has C diff. - Blood Cultures, no growth in one day - Vanc/Cefepime as Immunocompromised on Chemotherapy - Improving leukocytosis WBC 46.3 --> 32.7 - consult ID. PNA: CXR w/ new left pleural effusion and consolidation of left lung base with faint nodularity and left lung possibly metastatic disease, images reviewed. - Known h/o Renal Cell w/ Pulmonary Mets. - Continue IV Abx, DuoNeb prn. O2 nasal cannula when necessary - Monitor respiratory status C Diff Colitis: s/p diagnosis during recent admit in [place], currently on Flagyl. C Diff antigen positive, persistent infection despite improved diarrhea. - Isolation. - Continue Flagyl PO add by mouth vancomycin as patient has been on treatment for C. difficile more than a month on Flagyl. Deconditioning: Likely Multifactorial-CLL, Renal Cell w/ Mets, PNA, C Diff. Unable to stand due to profound weakness. - PT/ OT for eval and treatment - Pt reluctant to discuss Hospice on admission. Renal Insufficiency: Acute on Chronic. Creatinine 1.35, previously 1.50 on 03/28. U/a w/ mild bacteriuria. - IVF, repeat labs improved creatinine 1.35 --> 0.84 Renal Cell CA: w/ Pulmonary Mets. Ex- notes imaging in [place] positive for "brain tumor", no records available at this time. - CT Head w/ no acute findings, images reviewed by me. - MRI Brain for further evaluation, follow-up results. - Hold anticoagulation for possible CUFF CUTTER mets-on Xarelto for h/o PE. Resume if MRI negative. - oncology following. CLL: Following w/ Dr. Croral - As per recommendation hold chemotherapy drug Votrient - CT of the abdomen and pelvis done showed 3.9 cm mesenteric mass root of mesentery on the left not imaged previously. Anemia - anticoagulant Xarelto was held. Per oncology recommendation blood transfusion 2. - Monitor H&H DM: Sliding scale w/ Accu-Cheks. DVT Prophylaxis: SCD/Teds. Discuss with patient, nursing Written by Rubi Underwood, acting as scribe for Dr. Arias on 03/31/16 at 10:12. Discharge Planning Not ready for discharge Attending Statement The documentation accurately reflects the work performed [id number] by me on at 10:12. Rubi Mera Mar 31, 2016 12:23 Ziyad Arias DO Mar 31, 2016 14:21
[2016-03-31] MEDS: VANCOMYCIN INJ 2,000 MG in SODIUM CHLORID 0.9% 500 ML INJ 500 ML IV SCH (12:43)
--- NOTE | 2016-03-31 14:43 | RADRPT ---
EXAM DATE/TIME: 03/31/2016 09:22 [facility] COMPARISON: No previous studies available for comparison. INDICATIONS : Mass. CONTRAST: 20 cc Omniscan (gadodiamide) IV MEDICAL HISTORY : Metastatic, lung. Renal carcinoma SURGICAL HISTORY : Partial nephrectomy. ENCOUNTER: Initial ACUITY: 1 day PAIN SCORE: 0/10 LOCATION: cranial TECHNIQUE: Multiplanar, multisequence MRI of the brain was performed both prior to and following the administrat ion of paramagnetic contrast. FINDINGS: Moderate motion artifact is present. There are scattered areas of high signal intensity in the periv entricular white matter. On the post contrast images there is no abnormal enhancement; however, these images do have the most artifact evident. There are no extraaxial fluid collections appreciated. There is no edema evident. CONCLUSION: I do not see evidence for metastatic disease, however, moderate motion artifact is present on the pos t contrast images. Subtle meningeal disease could be missed. Braeden Edward MD FACR on March 31, 2016 at 13:33 Board Certified Radiologist. This report was verified electronically.
[2016-03-31] MEDS: VANCOMYCIN 500 MG VIAL (FOR ORAL USE ONLY) PO SCH ×2 (17:55→21:27)
--- NOTE | 2016-03-31 21:25 | EKG ---
Date Performed: 03/30/2016 Time Performed: 16:37:30 PTAGE: 65 years EKG: ATRIAL FIBRILLATION LOW QRS VOLTAGE IN PRECORDIAL LEADS NONSPECIFIC ST & T-WAVE ABNORMALITY When compared to previous tracing, overall heart rate is faster And the ventricular ectopic beats ar e no longer present. ABNORMAL ECG PREVIOUS TRACING : 06/12/2015 05.28 DOCTOR: Bienvenido Blue Interpretating Date/Time 03/31/2016 21:23:23
[2016-03-31] MEDS: ACETAMINOPHEN/HYDROcodone 325 MG/10 MG TAB PO PRN (21:27)
[2016-03-31] MEDS: ZOLPIDEM TARTRATE 5 MG TAB PO PRN (23:01)
[2016-04-01] VITALS (10 sets, daily range): BP systolic 135–173; BP diastolic 86–99; PULSE 69–108; RESP 18–20; TEMP 97–98.4; O2SAT 92–99
[2016-04-01] MEDS: VANCOMYCIN INJ 2,000 MG in SODIUM CHLORID 0.9% 500 ML INJ 500 ML IV SCH ×3 (00:13→22:08)
[2016-04-01] MEDS: SODIUM CHLOR 0.9% 1000 ML INJ 1,000 ML IV SCH ×3 (02:00→22:05)
[2016-04-01] MEDS: metroNIDAZOLE 500 MG TAB PO SCH ×3 (05:00→21:05)
[2016-04-01] MEDS: ACETAMINOPHEN/HYDROcodone 325 MG/10 MG TAB PO PRN ×3 (05:00→22:06)
[2016-04-01 08:02] LABS: AUTOMATED NEUTROPHIL # 1.1 TH/MM3 (1.8-7.7); BASOPHIL # 0.1 TH/MM3 (0-0.2); BASOPHIL % 0.2 % (0.0-2.0); EOSINOPHIL # 0.1 TH/MM3 (0-0.4); EOSINOPHIL % 0.2 % (0.0-4.0); HEMATOCRIT 31.7 % (39.0-51.0); LYMPHOCYTE # 38.1 TH/MM3 (1.0-4.8); MEAN CELL VOLUME 111.7 FL (80.0-100.0); MEAN CORPUSCULAR HGB CONC 33.1 % (32.0-36.0); MONO % 0.8 % (0.0-8.0); NEUT % 2.8 % (16.0-70.0); PLATELET COUNT 92 TH/MM3 (150-450); RED BLOOD COUNT 2.83 MIL/MM3 (4.50-5.90); WHITE BLOOD COUNT 39.7 TH/MM3 (4.0-11.0)
[2016-04-01 08:08] LABS: HEMO FLAGS AUTO DIFF
[2016-04-01] MEDS: SODIUM CHLORIDE 0.9% FLUSH 5 ML FLUSH FLUSH SCH ×2 (08:08→21:00)
[2016-04-01] MEDS: VANCOMYCIN 500 MG VIAL (FOR ORAL USE ONLY) PO SCH ×4 (08:08→21:07)
[2016-04-01] MEDS: CEFEPIME INJ 1,000 MG in SODIUM CHLORIDE 0.9% INJ 100 ML IV SCH ×2 (08:08→22:02)
[2016-04-01 09:50] LABS: BANDS 2 % (0-6); NEUTROPHIL # MANUAL DIFF 2.8 TH/MM3 (1.8-7.7); POLYS (SEG NEUTROPHILS) 5 % (16-70); SCAN/DIFF FINAL DIFF MANUAL; SMUDGE CELLS PRESENT PRESENT; WBC DIFF SAMPLE 100
[2016-04-01 09:51] LABS: PLATELET ESTIMATE SMEAR LOW (NORMAL); PLATELET MORPHOLOGY NORMAL (NORMAL)
--- NOTE | 2016-04-01 10:46 | HHI.PR ---
Subjective Remarks The patient said that he was feeling a lot better. He said that he still had numbness and tingling in his bilateral feet. He says his right leg is the weakest. He was breathing comfortably without coughing or mucus production. He said that he was not interested in a pacemaker placement. He said he was not sure about which heart medicines he is on. Discussed with nursing. Objective Vitals Vital Signs Date Time Temp Pulse Resp B/P Pulse Ox O2 Delivery O2 Flow Rate FiO2 04/01/16 09:40 145/86 04/01/16 08:00 97.9 95 20 173/98 97 04/01/16 08:00 Room Air 04/01/16 04:00 98.2 86 20 135/87 94 04/01/16 04:00 98.2 86 20 135/87 94 04/01/16 00:00 97.0 79 20 143/88 92 03/31/16 20:55 Room Air 03/31/16 20:00 98.2 81 20 144/97 97 03/31/16 17:49 97.6 80 16 163/81 95 03/31/16 17:23 96.0 82 16 160/95 95 03/31/16 16:00 96.0 82 16 160/95 95 03/31/16 14:46 97.6 80 18 131/76 97 03/31/16 14:24 98.4 82 18 143/93 97 03/31/16 12:00 97.6 84 20 134/74 93 I/O 03/31/16 03/31/16 03/31/16 04/01/16 04/01/16 04/01/16 07:00 15:00 23:00 07:00 15:00 23:00 Intake Total 240 ml 480 ml 600 ml 360 ml Output Total 380 ml 675 ml Balance -140 ml -195 ml 600 ml 360 ml Intake Oral 240 ml 480 ml 600 ml 360 ml Output Urine Total 380 ml 675 ml # Voids 3 1 # Bowel Movements 1 2 0 Result Diagram: 04/01/16 0659 03/31/16 0607 Imaging Last Impressions Chest CT 03/31/16 0000 Signed Impressions: Service Date/Time: Thursday, March 31, 2016 09:02 - CONCLUSION: 1. Increasing pleural changes on the left. 2. Decreasing pleural and parenchymal changes on the right. Braeden Edward MD FACR Brain MRI 03/31/16 0000 Signed Impressions: Service Date/Time: Thursday, March 31, 2016 09:22 - CONCLUSION: I do not see evidence for metastatic disease, however, moderate motion artifact is present on the post contrast images. Subtle meningeal disease could be missed. Braeden Edward MD FACR Abdomen/Pelvis CT 03/31/16 0000 Signed Impressions: Service Date/Time: Thursday, March 31, 2016 09:02 - CONCLUSION: 3.9 cm mesenteric mass root of mesentery on the left not imaged previously. I have no recent films for comparison. Braeden Edward MD FACR Chest X-Ray 03/30/16 1629 Signed Impressions: Service Date/Time: March 16:32 - CONCLUSION: 1. New left pleural effusion with consolidation the left lung base. The findings could indicate pneumonia which may be postobstructive given the history of lung cancer. 2. Faint nodularity in the left lung which could represent metastatic disease. Ziyad Lyon MD Head CT 03/30/16 0000 Signed Impressions: Service Date/Time: March 18:14 - CONCLUSION: Normal examination. Bill Branch MD Cervical Spine CT 03/30/16 0000 Signed Impressions: Service Date/Time: March 18:14 - CONCLUSION: 1. No acute findings. Mild spinal stenosis in the lower cervical spine Bill Branch MD Objective Remarks GENERAL: This is a pale-appearing male, well-developed patient, in no apparent distress. HEENT: Normocephalic. Pupils equal round and reactive. Nose without bleeding. Airway patent. NECK: Trachea midline. No JVD. Supple. CARDIOVASCULAR: Tachycardic without murmurs, gallops, or rubs. RESPIRATORY: Diminished bases. No wheezes, rales, or rhonchi. GASTROINTESTINAL: Abdomen soft, non-tender, nondistended. Bowel Sounds normoactive x4. MUSCULOSKELETAL: Extremities without clubbing, cyanosis, +1 bilateral lower extremity edema. NEUROLOGICAL: Awake and alert. Oriented x 3. Right lower extremity with 3 out of 5 strength, left lower extremity with 4 out of 5 strength. Arm strength symmetrical. Normal speech. PSYCH: Mood and affect appropriate. Medications and IVs Current Medications Medications (Trade) Dose Ordered Sig/[place] Route Start Time Stop Time Status Last Admin Pharmacy Profile Note 0 ml @ 0 mls/hr UNSCH OTHER 03/30/16 19:30 Cefepime HCl 1000 mg/Sodium Chloride 100 ml @ 200 mls/hr Q12H IV 03/31/16 09:00 04/01/16 08:08 (NS 1000 ml Inj) 1,000 ml @ 100 mls/hr Q10H IV 03/30/16 20:00 04/01/16 02:00 (NS Flush) 2 ml UNSCH PRN FLUSH 03/30/16 19:30 (NS Flush) 2 ml BID FLUSH 03/30/16 21:00 03/31/16 21:27 (Zofran Inj) 4 mg Q6H PRN IVP 03/30/16 19:30 (Dulcolax Supp) 10 mg DAILY PRN RI 03/30/16 19:30 (Tylenol) 650 mg Q6H PRN PO 03/30/16 19:30 03/31/16 14:08 ([place] 5-325 Mg) 1 tab Q4H PRN PO 03/30/16 19:30 03/31/16 10:41 (Flagyl) 500 mg Q8HR PO 03/30/16 22:00 04/01/16 05:00 (Ambien) 5 mg HS PRN PO 03/30/16 22:15 03/31/16 23:01 (Dilaudid Pf Inj) 1 mg Q3H PRN IV 03/31/16 10:30 04/01/16 10:05 Acetaminophen/ Hydrocodone Bitart 1 tab 1 tab Q4H PRN PO 03/31/16 10:30 04/01/16 05:00 (Vancomycin Inj/ NS 500 ml Inj) 520 ml @ 250 mls/hr Q12H IV 03/31/16 12:00 04/01/16 00:13 Miscellaneous Information SPECIFIC LAB TO BE ... ONCE ONCE XX 04/01/16 21:45 04/01/16 21:46 (VANCOMYCIN for oral use only) 125 mg QID PO 03/31/16 18:00 04/01/16 08:08 A/P Problem List: (1) Sepsis ICD Code: A41.9 Status: Acute (2) PNA (pneumonia) ICD Code: J18.9 Status: Acute (3) C. difficile colitis ICD Code: A04.7 Status: Acute (4) Muscular deconditioning ICD Code: R29.898 Status: Acute (5) Renal insufficiency ICD Code: N28.9 Status: Acute (6) Renal cell carcinoma ICD Code: C64.9 Status: Acute (7) DM (diabetes mellitus) ICD Code: E11.9 Status: Chronic (8) CLL (chronic lymphocytic leukemia) ICD Code: C91.10 Status: Acute Assessment and Plan Patient is a 65-year-old white male who came into the hospital with complaints of profound weakness 2 days. Sepsis: HR 105, WBC 46 although underlying CLL, Source-PNA. S/p Rocephin/ Zithro. Also has C diff. - Blood cultures, no growth 04/01. - Vanc/Cefepime as immunocompromised on chemotherapy. - consult ID. PNA: CXR w/ new left pleural effusion and consolidation of left lung base with faint nodularity and left lung possibly metastatic disease. - Known h/o Renal Cell w/ Pulmonary Mets. - Continue IV Abx, DuoNeb prn. O2 nasal cannula when necessary - Monitor respiratory status C Diff Colitis: s/p diagnosis during recent admit in [place], currently on Flagyl. C Diff antigen positive, persistent infection despite improved diarrhea. - Isolation. - Continue Flagyl PO add by mouth vancomycin as patient has been on treatment for C. difficile more than a month on Flagyl. - consult ID. Deconditioning: Likely Multifactorial-CLL, Renal Cell w/ Mets, PNA, C Diff. Unable to stand due to profound weakness. - PT/ OT for eval and treatment - Pt reluctant to discuss hospice on admission. He says he does not want resuscitation. Code status is DNR. Renal Insufficiency: Acute on Chronic. Creatinine 1.35, previously 1.50 on 03/28. U/a w/ mild bacteriuria. - IVF, repeat labs improved creatinine 1.35 --> 0.84 Renal Cell CA/ CLL With Pulmonary Mets. Ex- notes imaging in [place] positive for "brain tumor", no records available at this time. CT and MRI brain without evidence of mets. CT of the abdomen and pelvis done showed 3.9 cm mesenteric mass root of mesentery on the left not imaged previously. - oncology following. - As per recommendation hold chemotherapy drug Votrient Atrial fibrillation The pt was evaluated by cardiology on last admission and a pacemaker was recommended. The pt did not want a pacemaker and followed up with his neurology hospitalist in [place]. - continue Xarelto. - reconcile medication list. - telemetry. Anemia Per oncology recommendation blood transfusion 2. - Monitor H&H. Improved 04/01. DM: Sliding scale w/ Accu-Cheks. DVT Prophylaxis: Xarelto. Discharge Planning Awaiting clinical improvement. Ziyad Arias DO Apr 01, 2016 10:46
--- NOTE | 2016-04-01 11:36 | PD.ONC.PN ---
Subjective Subjective Remarks Afebrile overnight. Pt resting in bed watching TV on approach. He states he feels much better today. His pain is improved since he's been requesting the Dilaudid. He has no SOB. He is having occasional loose stool. Objective Data Date Time Temp Pulse Resp B/P Pulse Ox O2 Delivery O2 Flow Rate FiO2 04/01/16 10:40 88 04/01/16 09:40 145/86 04/01/16 08:00 97.9 95 20 173/98 97 04/01/16 08:00 Room Air 04/01/16 07:59 108 04/01/16 04:00 98.2 86 20 135/87 94 04/01/16 04:00 98.2 86 20 135/87 94 04/01/16 00:00 97.0 79 20 143/88 92 03/31/16 20:55 Room Air 03/31/16 20:00 98.2 81 20 144/97 97 03/31/16 17:49 97.6 80 16 163/81 95 03/31/16 17:23 96.0 82 16 160/95 95 03/31/16 16:00 96.0 82 16 160/95 95 03/31/16 14:46 97.6 80 18 131/76 97 03/31/16 14:24 98.4 82 18 143/93 97 03/31/16 12:00 97.6 84 20 134/74 93 04/01/16 04/01/16 04/01/16 07:00 15:00 23:00 Intake Total 360 ml Balance 360 ml Result Diagram: 04/01/16 0659 03/31/16 0607 Laboratory Results Laboratory Tests Test 04/01/16 06:59 White Blood Count 39.7 TH/MM3 Red Blood Count 2.83 MIL/MM3 Hemoglobin 10.5 GM/DL Hematocrit 31.7 % Mean Corpuscular Volume 111.7 FL Mean Corpuscular Hemoglobin 37.0 PG Mean Corpuscular Hemoglobin 33.1 % Concent Red Cell Distribution Width 33.0 % Platelet Count 92 TH/MM3 Mean Platelet Volume 11.3 FL Neutrophils (%) (Auto) 2.8 % Lymphocytes (%) (Auto) 96.0 % Monocytes (%) (Auto) 0.8 % Eosinophils (%) (Auto) 0.2 % Basophils (%) (Auto) 0.2 % Neutrophils # (Auto) 1.1 TH/MM3 Lymphocytes # (Auto) 38.1 TH/MM3 Monocytes # (Auto) 0.3 TH/MM3 Eosinophils # (Auto) 0.1 TH/MM3 Basophils # (Auto) 0.1 TH/MM3 CBC Comment AUTO DIFF Differential Total Cells 100 Counted Neutrophils % (Manual) 5 % Band Neutrophils % 2 % Lymphocytes % 92 % Monocytes % 1 % Neutrophils # (Manual) 2.8 TH/MM3 Differential Comment FINAL DIFF MANUAL Smudge Cells PRESENT Platelet Estimate LOW Platelet Morphology Comment NORMAL Culture Results Microbiology Date/Time Procedure Status Source Growth 03/30/16 19:40 Aerobic Blood Culture - Preliminary Resulted Blood Peripheral NO GROWTH IN 2 DAYS 03/30/16 19:40 Anaerobic Blood Culture - Preliminary Resulted Blood Peripheral NO GROWTH IN 2 DAYS 03/30/16 19:40 Aerobic Blood Culture - Preliminary Resulted Blood Peripheral NO GROWTH IN 2 DAYS 03/30/16 19:40 Anaerobic Blood Culture - Preliminary Resulted Blood Peripheral NO GROWTH IN 2 DAYS Imaging Studies Last [address] 03/31/16 0000 Signed Impressions: Service Date/Time: Thursday, March 31, 2016 09:02 - CONCLUSION: 1. Increasing pleural changes on the left. 2. Decreasing pleural and parenchymal changes on the right. Braeden Edward MD FACR Brain MRI 03/31/16 0000 Signed Impressions: Service Date/Time: Thursday, March 31, 2016 09:22 - CONCLUSION: I do not see evidence for metastatic disease, however, moderate motion artifact is present on the post contrast images. Subtle meningeal disease could be missed. Braeden Edward MD FACR Abdomen/Pelvis CT 03/31/16 0000 Signed Impressions: Service Date/Time: Thursday, March 31, 2016 09:02 - CONCLUSION: 3.9 cm mesenteric mass root of mesentery on the left not imaged previously. I have no recent films for comparison. Braeden Edward MD FACR Chest X-Ray 03/30/16 1629 Signed Impressions: Service Date/Time: March 16:32 - CONCLUSION: 1. New left pleural effusion with consolidation the left lung base. The findings could indicate pneumonia which may be postobstructive given the history of lung cancer. 2. Faint nodularity in the left lung which could represent metastatic disease. Ziyad Lyon MD Administered Medications Medications (Trade) Dose Ordered Sig/Asia Route PRN Reason Start Time Stop Time Status Last Admin Dose Admin Cefepime HCl 1000 mg/Sodium Chloride 100 ml @ 200 mls/hr Q12H IV 03/31/16 09:00 04/01/16 08:08 Sodium Chloride (NS 1000 ml Inj) 1,000 ml @ 100 mls/hr Q10H IV 03/30/16 20:00 04/01/16 02:00 IV Flush (NS Flush) 2 ml BID FLUSH 03/30/16 21:00 03/31/16 21:27 Acetaminophen (Tylenol) 650 mg Q6H PRN PO FEVER/PAIN SCALE 1 TO 2 03/30/16 19:30 03/31/16 14:08 Acetaminophen/ Hydrocodone Bitart ([place] 5-325 Mg) 1 tab Q4H PRN PO PAIN SCALE 3 TO 5 03/30/16 19:30 03/31/16 10:41 Metronidazole (Flagyl) 500 mg Q8HR PO 03/30/16 22:00 04/01/16 05:00 Zolpidem Tartrate (Ambien) 5 mg HS PRN PO SLEEP 03/30/16 22:15 03/31/16 23:01 Hydromorphone HCl (Dilaudid Pf Inj) 1 mg Q3H PRN IV Breakthrough pain 03/31/16 10:30 04/01/16 10:05 Acetaminophen/ Hydrocodone Bitart 1 tab 1 tab Q4H PRN PO pain 6-10 03/31/16 10:30 04/01/16 05:00 Vancomycin HCl/ Sodium Chloride (Vancomycin Inj/ NS 500 ml Inj) 520 ml @ 250 mls/hr Q12H IV 03/31/16 12:00 04/01/16 00:13 Vancomycin HCl (VANCOMYCIN for oral use only) 125 mg QID PO 03/31/16 18:00 04/01/16 08:08 Objective Remarks GENERAL: Overweight older male, lying in bed in no distress. SKIN: Warm and dry. HEAD: Normocephalic. EYES: No injection or drainage. NECK: Supple, trachea midline. No JVD or lymphadenopathy. CARDIOVASCULAR: +S1/S2. RESPIRATORY: Lungs clear anteriorly. GASTROINTESTINAL: Abdomen protuberant. EXTREMITIES: No edema. NEUROLOGICAL: No obvious focal deficit. Awake, alert, and oriented x3. Assessment/Plan Assessment 66 y/o male with a history of metastatic renal cell carcinoma admitted with increased weakness and fatigue. Plan We will continue to hold the Votrient for now. This can cause fatigue as well as diarrhea. He received 2 units of PRBC's yesterday. His hgb is much improved at 10.5 today. Anemia studies with elevated ferritin, however this is an acute phase reactant. + Macrocytosis. Possible anemia of chronic disease. Hemolysis unlikely. Clinically he appears much better. Continue IV and po antibiotics. Continue physical therapy for strengthening. Attending Statement The exam, history, and the medical decision-making described in the above note were completed with the assistance of the mid-level provider. I reviewed and agree with the findings presented. I attest that I had a [id number] encounter with the patient on the same day, and personally performed and documented my assessment and findings in the medical record. ct of abd and pelvis reviewed and there is substantial fluid at left lung base and a 4 cm mesenteric mass. It will be important to determine if these are new findings representing progressive disease or old and unchanged or better. It there is progression will stop the votrient and and try something else. patient feels stronger since stopping votrient and receiving blood and antibiotics. Jocelyn Sam Apr 01, 2016 11:36 Bienvenido Tubbs MD Apr 01, 2016 17:05
[2016-04-01] MEDS: GABAPENTIN 300 MG CAP PO SCH ×3 (12:21→18:26)
[2016-04-01] MEDS: RIVAROXABAN 20 MG TAB PO SCH (13:28)
[2016-04-01 14:22] LABS: BICARBONATE 30.7 MEQ/L (21.0-32.0); MAGNESIUM 1.5 MG/DL (1.5-2.5); POTASSIUM 3.8 MEQ/L (3.5-5.1)
[2016-04-01 14:46] LABS: CALCIUM-PROTEIN CORRECTED 8.3 MG/DL (8.5-10.1)
--- NOTE | 2016-04-01 15:29 | PD.ID.CON ---
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 Over the last 2 days unable to ambulate secondary weakness. Sp fall 2 days. hit his head. + neck pain bilaterally. Dr. Marko Choi is managing his chemotherapy that is arranged in conjunction with his oncologist in [place]. The patient previously was seen at the [facility] by Dr. Voss, one of the [facility] residents. No fevers, chills, nausea vomiting diarrhea. Sp recently treated for C. difficile colitis in [place]. He reported a formed stool today He has his WBC in 30s- 40s with > 80 % of lumphs His ANC is actually low, 2800 His BC negative @ [address] showd new mesenteric mass 3.9 cm and L pleural/parenchimal changes Pt is on chemotherapy for both his malignancires He states he feels much better Pt is a quite poor historian Review of Systems ROS Limitations: Poor Historian Constitutional: COMPLAINS OF: Fatigue Neurologic: COMPLAINS OF: Abnormal gait, Poor Balance Except as stated in HPI: all other systems reviewed are Neg Past Family Social History Allergies: Coded Allergies: Morphine (Unverified Adverse Reaction, Severe, VOMITING, 03/30/16) Past Medical History CLL h/o PE on Xarelto Renal Cell CA w/ Pulmonary Mets, s/p Left Nephrectomy, CAD COPD, C Diff Colitis DM Past Surgical History Vasectomy Left Nephrectomy 2013 Bone Marrow Biopsy Active Ordered Medications Medications where reviewed in EMR Antibiotics Include: vanco IV vanco PO cefepime Family History Reviewed. [place] Social History \Negative for alcohol, tobacco or drugs. Physical Exam Vital Signs Vital Signs Date Time Temp Pulse Resp B/P Pulse Ox O2 Delivery O2 Flow Rate FiO2 04/01/16 12:00 98.0 79 20 155/87 97 04/01/16 10:40 88 04/01/16 09:40 145/86 04/01/16 08:00 97.9 95 20 173/98 97 04/01/16 08:00 Room Air 04/01/16 07:59 108 04/01/16 04:00 98.2 86 20 135/87 94 04/01/16 04:00 98.2 86 20 135/87 94 04/01/16 00:00 97.0 79 20 143/88 92 03/31/16 20:55 Room Air 03/31/16 20:00 98.2 81 20 144/97 97 03/31/16 17:49 97.6 80 16 163/81 95 03/31/16 17:23 96.0 82 16 160/95 95 03/31/16 16:00 96.0 82 16 160/95 95 Physical Exam CONSTITUTIONAL/GENERAL: This is an adequately nourished patient, in no apparent distress. TUBES/LINES/DRAINS: SKIN: No jaundice, rashes, or lesions. Ecchymoses on upper extremities. No wounds seen anteriorly. Skin temperature appropriate. Not diaphoretic. HEAD: Atraumatic. Normocephalic. EYES: Pupils equal and round and reactive. Extraocular motions intact. No scleral icterus. No injection or drainage. Fundi not examined. ENT: Hearing grossly normal. Nose without bleeding or purulent drainage. Oral mucosae without visible erythema, exudates, masses, or lesions. NECK: Trachea midline. Supple, nontender. No palpable thyroid enlargement or nodularity. CARDIOVASCULAR: Regular rate and rhythm without murmurs, gallops, or rubs. No JVD. Peripheral pulses symmetric. RESPIRATORY/CHEST: Symmetric, unlabored respirations. Clear to auscultation. Breath sounds equal bilaterally. No wheezes, rales, or rhonchi. GASTROINTESTINAL: Abdomen soft, non-tender, nondistended. No hepato-splenomegaly , or palpable masses. No guarding. Bowel sounds present. GENITOURINARY: Without palpable bladder distension.. MUSCULOSKELETAL: Extremities without clubbing, cyanosis, or edema. No joint tenderness or effusion noted. No calf tenderness. No mottling or clubbing. LYMPHATICS: No palpable cervical or supraclavicular adenopathy. NEUROLOGICAL: Awake and alert. Motor and sensory grossly within normal limits. Follows commands. Cognitively sharp. Moves all extremities. PSYCHIATRIC: No obvious anxiety/depression. no apparent hallucinations or other psychotic thought process. Laboratory Laboratory Tests Test 04/01/16 04/01/16 06:59 13:35 White Blood Count 39.7 Red Blood Count 2.83 Hemoglobin 10.5 Hematocrit 31.7 Mean Corpuscular Volume 111.7 Mean Corpuscular Hemoglobin 37.0 Mean Corpuscular Hemoglobin 33.1 Concent Red Cell Distribution Width 33.0 Platelet Count 92 Mean Platelet Volume 11.3 Neutrophils (%) (Auto) 2.8 Lymphocytes (%) (Auto) 96.0 Monocytes (%) (Auto) 0.8 Eosinophils (%) (Auto) 0.2 Basophils (%) (Auto) 0.2 Neutrophils # (Auto) 1.1 Lymphocytes # (Auto) 38.1 Monocytes # (Auto) 0.3 Eosinophils # (Auto) 0.1 Basophils # (Auto) 0.1 CBC Comment AUTO DIFF Differential Total Cells 100 Counted Neutrophils % (Manual) 5 Band Neutrophils % 2 Lymphocytes % 92 Monocytes % 1 Neutrophils # (Manual) 2.8 Differential Comment FINAL DIFF MANUAL Smudge Cells PRESENT Platelet Estimate LOW Platelet Morphology Comment NORMAL Sodium Level 145 Potassium Level 3.8 Chloride Level 106 Carbon Dioxide Level 30.7 Anion Gap 8 Blood Urea Nitrogen 18 Creatinine 0.91 Estimat Glomerular Filtration 84 Rate Random Glucose 129 Calcium Level 7.1 Protein Corrected Calcium 8.3 Magnesium Level 1.5 Total Protein 4.9 Date/Time Procedure Status Source Growth 03/30/16 19:40 Aerobic Blood Culture - Preliminary Resulted Blood Peripheral NO GROWTH IN 2 DAYS 03/30/16 19:40 Anaerobic Blood Culture - Preliminary Resulted Blood Peripheral NO GROWTH IN 2 DAYS Result Diagram: 04/01/16 0659 04/01/16 1335 Imaging Last Impressions Chest CT 03/31/16 0000 Signed Impressions: Service Date/Time: Thursday, March 31, 2016 09:02 - CONCLUSION: 1. Increasing pleural changes on the left. 2. Decreasing pleural and parenchymal changes on the right. Braeden Edward MD FACR Brain MRI 03/31/16 0000 Signed Impressions: Service Date/Time: Thursday, March 31, 2016 09:22 - CONCLUSION: I do not see evidence for metastatic disease, however, moderate motion artifact is present on the post contrast images. Subtle meningeal disease could be missed. Braeden Edward MD FACR Abdomen/Pelvis CT 03/31/16 0000 Signed Impressions: Service Date/Time: Thursday, March 31, 2016 09:02 - CONCLUSION: 3.9 cm mesenteric mass root of mesentery on the left not imaged previously. I have no recent films for comparison. Braeden Edward MD FACR Chest X-Ray 03/30/16 1629 Signed Impressions: Service Date/Time: March 16:32 - CONCLUSION: 1. New left pleural effusion with consolidation the left lung base. The findings could indicate pneumonia which may be postobstructive given the history of lung cancer. 2. Faint nodularity in the left lung which could represent metastatic disease. Ziyad Lyon MD Head CT 03/30/16 0000 Signed Impressions: Service Date/Time: March 18:14 - CONCLUSION: Normal examination. Bill Branch MD Cervical Spine CT 03/30/16 0000 Signed Impressions: Service Date/Time: March 18:14 - CONCLUSION: 1. No acute findings. Mild spinal stenosis in the lower cervical spine Bill Branch MD Assessment and Plan Assessment and Plan Leukocytosis, primarily 2/2 CLL with lymphocytosis His ANC is somewhat low ? Post obstructive PNA: pt denies cough /sputum production, states he previously had changes on his imagin studies Recent C.diff - clinically resolved Generalyzed weakness, likely multifactorial, with medications contributing Complex medical history with 2 simaultateous malignancy, including metastatic renal ca and CLL , on complex chemo cont po vanco to complete C.diff course - cont vanco - change cefepime to zosyn to provide anaerobic coverage in the settings of suspected postobstructive PNA -sputum clx if feasible Discussed Condition With Dr Derick Ashford,Jessi Tellez MD Apr 01, 2016 15:29
[2016-04-01] MEDS: ZOLPIDEM TARTRATE 5 MG TAB PO PRN (21:05)
[2016-04-01] MEDS ORDERED: PHARMACY ORDERED LAB XX ONE (21:45)
[2016-04-02] VITALS (8 sets, daily range): BP systolic 135–168; BP diastolic 71–86; PULSE 74–100; RESP 17–20; TEMP 97.5–99.1; O2SAT 95–96
[2016-04-02] MEDS: PIPERACIL-TAZO 3.375 GM PREMIX 50 ML IV SCH ×4 (01:00→18:57)
[2016-04-02] MEDS: metroNIDAZOLE 500 MG TAB PO SCH ×3 (05:32→21:47)
[2016-04-02] MEDS: ACETAMINOPHEN/HYDROcodone 325 MG/10 MG TAB PO PRN ×2 (05:32→15:03)
[2016-04-02] MEDS: VANCOMYCIN 500 MG VIAL (FOR ORAL USE ONLY) PO SCH ×4 (08:58→21:00)
[2016-04-02] MEDS: RIVAROXABAN 20 MG TAB PO SCH (08:58)
[2016-04-02] MEDS: GABAPENTIN 300 MG CAP PO SCH ×3 (08:58→18:57)
[2016-04-02] MEDS: SODIUM CHLOR 0.9% 1000 ML INJ 1,000 ML IV SCH ×2 (08:59→18:57)
[2016-04-02] MEDS: SODIUM CHLORIDE 0.9% FLUSH 5 ML FLUSH FLUSH SCH ×2 (08:59→21:49)
[2016-04-02 09:15] LABS: HEMATOCRIT 32.5 % (39.0-51.0); MEAN CELL VOLUME 115.7 FL (80.0-100.0); MEAN CORPUSCULAR HEMOGLOBIN 36.9 PG (27.0-34.0); MEAN CORPUSCULAR HGB CONC 31.9 % (32.0-36.0); PLATELET COUNT 109 TH/MM3 (150-450); RED BLOOD COUNT 2.81 MIL/MM3 (4.50-5.90); RED CELL DISTRIBUTION WIDTH 32.1 % (11.6-17.2); WHITE BLOOD COUNT 49.8 TH/MM3 (4.0-11.0)
[2016-04-02 09:19] LABS: REVIEW FLAG FINAL
[2016-04-02 09:50] LABS: BICARBONATE 22.9 MEQ/L (21.0-32.0); MAGNESIUM 1.3 MG/DL (1.5-2.5); POTASSIUM 4.2 MEQ/L (3.5-5.1)
[2016-04-02 10:14] LABS: CALCIUM-PROTEIN CORRECTED 7.9 MG/DL (8.5-10.1)
[2016-04-02] MEDS ORDERED: CALCIUM GLUCONATE INJ 1 GM in DEXTROSE 5% IN WATER 100ML INJ 100 ML IV ONE ×2 (11:30)
[2016-04-02] MEDS ORDERED: PHARMACY ORDERED LAB XX ONE (11:45)
--- NOTE | 2016-04-02 11:59 | HHI.PR ---
Subjective Remarks The patient was very upset that he had several bowel movements today and was unable to get assistance with a bedpan before he had to have a bowel movement. He was very frustrated about that. He stated that his lower extremity strength is getting better. He says he is breathing well. He had no other acute complaints. Discussed with nursing. Objective Vitals Vital Signs Date Time Temp Pulse Resp B/P Pulse Ox O2 Delivery O2 Flow Rate FiO2 04/02/16 08:00 99.1 86 18 151/74 95 04/02/16 04:00 97.8 88 20 144/82 96 04/02/16 00:00 97.8 88 20 144/82 96 04/01/16 21:25 Room Air 04/01/16 20:00 98.4 84 18 149/86 97 04/01/16 19:58 89 04/01/16 16:00 98.0 94 20 150/99 99 04/01/16 12:00 98.0 79 20 155/87 97 I/O 04/01/16 04/01/16 04/01/16 04/02/16 04/02/16 04/02/16 07:00 15:00 23:00 07:00 15:00 23:00 Intake Total 360 ml 1860 ml 351 ml Balance 360 ml 1860 ml 351 ml Intake Oral 360 ml 240 ml IV Total 1620 ml 351 ml # Voids 1 2 # Bowel Movements 0 1 1 Result Diagram: 04/02/16 0848 04/02/16 0840 Imaging Last Impressions Chest CT 03/31/16 0000 Signed Impressions: Service Date/Time: Thursday, March 31, 2016 09:02 - CONCLUSION: 1. Increasing pleural changes on the left. 2. Decreasing pleural and parenchymal changes on the right. Braeden Edward MD FACR Brain MRI 03/31/16 0000 Signed Impressions: Service Date/Time: Thursday, March 31, 2016 09:22 - CONCLUSION: I do not see evidence for metastatic disease, however, moderate motion artifact is present on the post contrast images. Subtle meningeal disease could be missed. Braeden Edward MD FACR Abdomen/Pelvis CT 03/31/16 0000 Signed Impressions: Service Date/Time: Thursday, March 31, 2016 09:02 - CONCLUSION: 3.9 cm mesenteric mass root of mesentery on the left not imaged previously. I have no recent films for comparison. Braeden Edward MD FACR Chest X-Ray 03/30/16 1629 Signed Impressions: Service Date/Time: March 16:32 - CONCLUSION: 1. New left pleural effusion with consolidation the left lung base. The findings could indicate pneumonia which may be postobstructive given the history of lung cancer. 2. Faint nodularity in the left lung which could represent metastatic disease. Ziyad Lyon MD Head CT 03/30/16 0000 Signed Impressions: Service Date/Time: March 18:14 - CONCLUSION: Normal examination. Bill Branch MD Cervical Spine CT 03/30/16 0000 Signed Impressions: Service Date/Time: March 18:14 - CONCLUSION: 1. No acute findings. Mild spinal stenosis in the lower cervical spine Bill Branch MD Objective Remarks GENERAL: Well-developed patient, in no apparent distress. SKIN: Multiple tattoos. HEENT: Normocephalic. Pupils equal round and reactive. Nose without bleeding. Airway patent. NECK: Trachea midline. No JVD. Supple. CARDIOVASCULAR: Regular rate and rhythm without murmurs, gallops, or rubs. RESPIRATORY: Diminished bases. No wheezes, rales, or rhonchi. GASTROINTESTINAL: Abdomen soft, non-tender, nondistended. Bowel Sounds normoactive x4. MUSCULOSKELETAL: Extremities without clubbing, cyanosis, TR- +1 bilateral lower extremity edema. NEUROLOGICAL: Awake and alert. Oriented x 3. Right lower extremity with 4 out of 5 strength, left lower extremity with 3 out of 5 strength. Arm strength symmetrical. Normal speech. PSYCH: Mildly agitated. Medications and IVs Current Medications Medications (Trade) Dose Ordered Sig/Asia Route Start Time Stop Time Status Last Admin Pharmacy Profile Note 0 ml @ 0 mls/hr UNSCH OTHER 03/30/16 19:30 (NS 1000 ml Inj) 1,000 ml @ 100 mls/hr Q10H IV 03/30/16 20:00 04/02/16 08:59 (NS Flush) 2 ml UNSCH PRN FLUSH 03/30/16 19:30 (NS Flush) 2 ml BID FLUSH 03/30/16 21:00 03/31/16 21:27 (Zofran Inj) 4 mg Q6H PRN IVP 03/30/16 19:30 (Dulcolax Supp) 10 mg DAILY PRN NM 03/30/16 19:30 (Tylenol) 650 mg Q6H PRN PO 03/30/16 19:30 03/31/16 14:08 ([place] 5-325 Mg) 1 tab Q4H PRN PO 03/30/16 19:30 03/31/16 10:41 (Flagyl) 500 mg Q8HR PO 03/30/16 22:00 04/02/16 05:32 (Ambien) 5 mg HS PRN PO 03/30/16 22:15 04/01/16 21:05 (Dilaudid Pf Inj) 1 mg Q3H PRN IV 03/31/16 10:30 04/01/16 10:05 Acetaminophen/ Hydrocodone Bitart 1 tab 1 tab Q4H PRN PO 03/31/16 10:30 04/02/16 05:32 (Vancomycin Inj/ NS 500 ml Inj) 520 ml @ 250 mls/hr Q12H IV 03/31/16 12:00 04/01/16 22:08 (VANCOMYCIN for oral use only) 125 mg QID PO 03/31/16 18:00 04/02/16 08:58 (Xarelto) 20 mg DAILY PO 04/01/16 11:00 04/02/16 08:58 Gabapentin 300 mg 300 mg TID PO 04/01/16 11:15 04/02/16 08:58 Piperacillin Sod/ Tazobactam Sod 50 ml @ 100 mls/hr Q6H IV 04/02/16 00:00 04/02/16 05:32 Magnesium Sulfate/ Dextrose 100 ml @ 100 mls/hr Q1H IV 04/02/16 11:45 04/02/16 13:44 (Calcium Gluconate Inj/D5W 100 ml Inj) 110 ml @ 110 mls/hr ONCE ONCE IV 04/02/16 11:30 04/02/16 12:29 A/P Problem List: (1) Sepsis ICD Code: A41.9 Status: Acute (2) PNA (pneumonia) ICD Code: J18.9 Status: Acute (3) C. difficile colitis ICD Code: A04.7 Status: Acute (4) Muscular deconditioning ICD Code: R29.898 Status: Acute (5) Renal insufficiency ICD Code: N28.9 Status: Acute (6) Renal cell carcinoma ICD Code: C64.9 Status: Acute (7) DM (diabetes mellitus) ICD Code: E11.9 Status: Chronic (8) CLL (chronic lymphocytic leukemia) ICD Code: C91.10 Status: Acute Assessment and Plan Sepsis HR 105, WBC 46 although underlying CLL. Source is likely post-obstructive PNA, C diff. S/p Rocephin/Zithro. ID consult appreciated. Blood cultures with no growth 04/02. - continue Vanc/ Zosyn per ID. PNA CXR w/ new left pleural effusion and consolidation of left lung base with faint nodularity and left lung possibly metastatic disease. Known h/o renal cell carcinoma w/ pulmonary mets. - Continue IV antibiotics as above. - DuoNeb, O2 nasal cannula when necessary. C Diff colitis S/p diagnosis during recent admit in [place], currently on Flagyl and vanco PO. C Diff antigen positive, persistent infection despite improved diarrhea. - Isolation. - Continue Flagyl PO add by mouth vancomycin as patient has been on treatment for C. difficile more than a month on Flagyl. - follow up with ID. Deconditioning Likely multifactorial: CLL, renal cell w/ mets, PNA, C Diff. Unable to stand due to profound weakness. - PT/ OT for eval and treatment. - Pt reluctant to discuss hospice on admission. He says he does not want resuscitation. Code status is DNR. - encourage PO intake. Renal cell carcinoma/ CLL With pulmonary mets. Ex- notes imaging in [place] positive for "brain tumor", no records available at this time. CT and MRI brain without evidence of mets. CT of the abdomen and pelvis done showed 3.9 cm mesenteric mass root of mesentery on the left not imaged previously. - oncology following. - As per recommendation hold chemotherapy drug Votrient. - treatment of infections as above. Atrial fibrillation The pt was evaluated by cardiology on last admission and a pacemaker was recommended. 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 - continue Xarelto. - reconcile medication list. - telemetry. Anemia Per oncology recommendation blood transfusion 2. - Monitor H&H. Stable 04/02. DVT Prophylaxis: Xarelto. Discharge Planning Awaiting clinical improvement. Ziyad Arias DO Apr 02, 2016 11:59
[2016-04-02] MEDS ORDERED: BACLOFEN 10 MG TAB PO PRN (12:15)
[2016-04-02] MEDS: FOLIC ACID 1 MG TAB PO SCH (14:13)
[2016-04-02] MEDS: CARVEDILOL 3.125 MG TAB PO SCH ×2 (14:13→21:47)
[2016-04-02] MEDS: VENLAFAXINE HCL XR 75 MG CAP PO SCH (14:13)
[2016-04-02] MEDS: DIGOXIN 0.125 MG TAB PO SCH (14:13)
[2016-04-02] MEDS: LISINOPRIL 10 MG TAB PO SCH (14:13)
[2016-04-02] MEDS: MAGNESIUM SULFATE 1 GM PREMIX 100 ML IV SCH ×2 (15:00→15:43)
[2016-04-02] MEDS ORDERED: ENALAPRILAT 1.25 MG/ML VIAL IV PUSH PRN (16:15)
[2016-04-02] MEDS: ZOLPIDEM TARTRATE 10 MG TAB PO PRN (21:47)
[2016-04-02] MEDS: oxyCODONE HCL 20 MG CONTROLLED RELEASE TAB PO SCH (21:48)
[2016-04-02] MEDS: PRAVASTATIN SOD 40 MG TAB PO SCH (21:49)
[2016-04-02] MEDS: SALMETEROL XINAFOATE 50 MCG DISKUS INH SCH (21:49)
[2016-04-03] VITALS (8 sets, daily range): BP systolic 128–152; BP diastolic 74–88; PULSE 74–85; RESP 16–20; TEMP 97.1–98.3; O2SAT 94–97
[2016-04-03] MEDS: PIPERACIL-TAZO 3.375 GM PREMIX 50 ML IV SCH ×4 (01:31→16:20)
[2016-04-03] MEDS: SODIUM CHLOR 0.9% 1000 ML INJ 1,000 ML IV SCH ×2 (04:10→16:28)
[2016-04-03] MEDS: ACETAMINOPHEN/HYDROcodone 325 MG/10 MG TAB PO PRN ×2 (05:33→22:46)
[2016-04-03] MEDS: metroNIDAZOLE 500 MG TAB PO SCH ×3 (05:34→21:03)
[2016-04-03 07:21] LABS: AUTOMATED NEUTROPHIL # 0.6 TH/MM3 (1.8-7.7); EOSINOPHIL # 0.1 TH/MM3 (0-0.4); EOSINOPHIL % 0.3 % (0.0-4.0); HEMATOCRIT 25.3 % (39.0-51.0); LYMPHOCYTE # 31.9 TH/MM3 (1.0-4.8); MEAN CELL VOLUME 112.2 FL (80.0-100.0); MEAN CORPUSCULAR HGB CONC 33.9 % (32.0-36.0); MONO % 0.8 % (0.0-8.0); NEUT % 1.9 % (16.0-70.0); PLATELET COUNT 87 TH/MM3 (150-450); RED BLOOD COUNT 2.26 MIL/MM3 (4.50-5.90); RED CELL DISTRIBUTION WIDTH 31.6 % (11.6-17.2); WHITE BLOOD COUNT 32.9 TH/MM3 (4.0-11.0)
[2016-04-03 07:31] LABS: HEMO FLAGS AUTO DIFF
[2016-04-03 07:34] LABS: BICARBONATE 26.3 MEQ/L (21.0-32.0); MAGNESIUM 1.8 MG/DL (1.5-2.5); POTASSIUM 4.4 MEQ/L (3.5-5.1)
[2016-04-03 07:51] LABS: CALCIUM-PROTEIN CORRECTED 8.6 MG/DL (8.5-10.1)
[2016-04-03] MEDS: GABAPENTIN 300 MG CAP PO SCH ×3 (09:05→16:20)
[2016-04-03] MEDS: CARVEDILOL 3.125 MG TAB PO SCH ×2 (09:05→21:03)
[2016-04-03] MEDS: VENLAFAXINE HCL XR 75 MG CAP PO SCH (09:05)
[2016-04-03] MEDS: LISINOPRIL 10 MG TAB PO SCH (09:05)
[2016-04-03] MEDS: RIVAROXABAN 20 MG TAB PO SCH (09:05)
[2016-04-03] MEDS: FOLIC ACID 1 MG TAB PO SCH (09:05)
[2016-04-03] MEDS: SODIUM CHLORIDE 0.9% FLUSH 5 ML FLUSH FLUSH SCH ×2 (09:06→21:00)
[2016-04-03] MEDS: DIGOXIN 0.125 MG TAB PO SCH (09:06)
[2016-04-03] MEDS: VANCOMYCIN 500 MG VIAL (FOR ORAL USE ONLY) PO SCH ×4 (09:06→21:00)
[2016-04-03] MEDS: oxyCODONE HCL 20 MG CONTROLLED RELEASE TAB PO SCH ×2 (09:07→21:03)
[2016-04-03 10:57] LABS: NEUTROPHIL # MANUAL DIFF 0.7 TH/MM3 (1.8-7.7); POLYS (SEG NEUTROPHILS) 2 % (16-70); WBC DIFF SAMPLE 100
[2016-04-03 11:03] LABS: PLATELET ESTIMATE SMEAR LOW (NORMAL)
[2016-04-03 11:04] LABS: KERATOCYTES OCC (NORMAL); SCAN/DIFF FINAL DIFF MANUAL
--- NOTE | 2016-04-03 11:07 | PD.ONC.PN ---
Subjective Subjective Remarks Afebrile overnight. Patient resting comfortably without complaint. Objective Data Date Time Temp Pulse Resp B/P Pulse Ox O2 Delivery O2 Flow Rate FiO2 04/03/16 08:28 97.4 81 18 152/85 97 04/03/16 05:30 98.3 85 17 128/74 96 04/03/16 01:15 97.8 80 19 138/80 95 04/03/16 00:50 97.8 80 19 138/80 95 04/02/16 21:30 97.6 88 17 135/86 96 04/02/16 20:00 Room Air 04/02/16 20:00 91 04/02/16 16:00 97.5 81 18 168/81 96 04/02/16 12:00 98.9 74 18 158/71 96 04/03/16 04/03/16 04/03/16 07:00 15:00 23:00 Intake Total 1772 ml Output Total 650 ml Balance 1122 ml Result Diagram: 04/03/1611 04/03/16 0611 Laboratory Results Laboratory Tests Test 04/02/16 04/03/16 11:54 06:11 Vancomycin Level Trough 28.3 MCG/ML White Blood Count 32.9 TH/MM3 Red Blood Count 2.26 MIL/MM3 Hemoglobin 8.6 GM/DL Hematocrit 25.3 % Mean Corpuscular Volume 112.2 FL Mean Corpuscular Hemoglobin 38.0 PG Mean Corpuscular Hemoglobin 33.9 % Concent Red Cell Distribution Width 31.6 % Platelet Count 87 TH/MM3 Mean Platelet Volume 11.9 FL Neutrophils (%) (Auto) 1.9 % Lymphocytes (%) (Auto) 97.0 % Monocytes (%) (Auto) 0.8 % Eosinophils (%) (Auto) 0.3 % Basophils (%) (Auto) 0.0 % Neutrophils # (Auto) 0.6 TH/MM3 Lymphocytes # (Auto) 31.9 TH/MM3 Monocytes # (Auto) 0.3 TH/MM3 Eosinophils # (Auto) 0.1 TH/MM3 Basophils # (Auto) 0.0 TH/MM3 CBC Comment AUTO DIFF Sodium Level 141 MEQ/L Potassium Level 4.4 MEQ/L Chloride Level 109 MEQ/L Carbon Dioxide Level 26.3 MEQ/L Anion Gap 6 MEQ/L Blood Urea Nitrogen 14 MG/DL Creatinine 0.72 MG/DL Estimat Glomerular Filtration 110 ML/MIN Rate Random Glucose 84 MG/DL Calcium Level 7.1 MG/DL Protein Corrected Calcium 8.6 MG/DL Magnesium Level 1.8 MG/DL Total Protein 4.4 GM/DL Random Vancomycin Level 14.8 COMMENT Imaging Studies Last Impressions Chest CT 03/31/16 0000 Signed Impressions: Service Date/Time: Thursday, March 31, 2016 09:02 - CONCLUSION: 1. Increasing pleural changes on the left. 2. Decreasing pleural and parenchymal changes on the right. Braeden Edward MD FACR Brain MRI 03/31/16 0000 Signed Impressions: Service Date/Time: Thursday, March 31, 2016 09:22 - CONCLUSION: I do not see evidence for metastatic disease, however, moderate motion artifact is present on the post contrast images. Subtle meningeal disease could be missed. Braeden Edward MD FACR Abdomen/Pelvis CT 03/31/16 0000 Signed Impressions: Service Date/Time: Thursday, March 31, 2016 09:02 - CONCLUSION: 3.9 cm mesenteric mass root of mesentery on the left not imaged previously. I have no recent films for comparison. Braeden Edward MD FACR Chest X-Ray 03/30/16 1629 Signed Impressions: Service Date/Time: March 16:32 - CONCLUSION: 1. New left pleural effusion with consolidation the left lung base. The findings could indicate pneumonia which may be postobstructive given the history of lung cancer. 2. Faint nodularity in the left lung which could represent metastatic disease. Ziyad Lyon MD Head CT 03/30/16 0000 Signed Impressions: Service Date/Time: March 18:14 - CONCLUSION: Normal examination. Bill Branch MD Cervical Spine CT 03/30/16 0000 Signed Impressions: Service Date/Time: March 18:14 - CONCLUSION: 1. No acute findings. Mild spinal stenosis in the lower cervical spine Bill Branch MD Administered Medications Medications (Trade) Dose Ordered Sig/Asia Route PRN Reason Start Time Stop Time Status Last Admin Dose Admin Sodium Chloride (NS 1000 ml Inj) 1,000 ml @ 100 mls/hr Q10H IV 03/30/16 20:00 04/03/16 04:10 IV Flush (NS Flush) 2 ml BID FLUSH 03/30/16 21:00 04/02/16 21:49 Acetaminophen (Tylenol) 650 mg Q6H PRN PO FEVER/PAIN SCALE 1 TO 2 03/30/16 19:30 03/31/16 14:08 Acetaminophen/ Hydrocodone Bitart ([place] 5-325 Mg) 1 tab Q4H PRN PO PAIN SCALE 3 TO 5 03/30/16 19:30 03/31/16 10:41 Metronidazole (Flagyl) 500 mg Q8HR PO 03/30/16 22:00 04/03/16 05:34 Hydromorphone HCl (Dilaudid Pf Inj) 1 mg Q3H PRN IV Breakthrough pain 03/31/16 10:30 04/01/16 10:05 Acetaminophen/ Hydrocodone Bitart ([place] 10-325 Mg) 1 tab Q4H PRN PO pain 6-10 03/31/16 10:30 04/03/16 05:33 Vancomycin HCl (VANCOMYCIN for oral use only) 125 mg QID PO 03/31/16 18:00 04/03/16 09:06 Rivaroxaban (Xarelto) 20 mg DAILY PO 04/01/16 11:00 04/03/16 09:05 Gabapentin 300 mg 300 mg TID PO 04/01/16 11:15 04/03/16 09:05 Piperacillin Sod/ Tazobactam Sod (Zosyn 3.375 Gm Premix) 50 ml @ 100 mls/hr Q6H IV 04/02/16 00:00 04/03/16 05:34 Carvedilol (Coreg) 3.125 mg Q12HR PO 04/02/16 12:15 04/03/16 09:05 Lisinopril (Prinivil) 10 mg DAILY PO 04/02/16 12:15 04/03/16 09:05 Folic Acid (Folate) 1 mg DAILY PO 04/02/16 12:15 04/03/16 09:05 Venlafaxine HCl (Effexor Xr) 150 mg DAILY PO 04/02/16 12:15 04/03/16 09:05 Digoxin (Lanoxin) 0.125 mg DAILY PO 04/02/16 12:15 04/03/16 09:06 Pravastatin Sodium (Pravachol) 40 mg HS PO 04/02/16 21:00 04/02/16 21:49 Zolpidem Tartrate (Ambien) 10 mg HS PRN PO insomnia 04/02/16 12:15 04/02/16 21:47 Oxycodone HCl (OxyCONTIN CR) 20 mg Q12HR PO 04/02/16 21:00 04/03/16 09:07 Salmeterol Xinafoate (Serevent Diskus Inh) 50 mcg BID INH 04/02/16 21:00 04/02/16 21:49 Objective Remarks GENERAL: Middle aged male, sitting up in bed in [facility]. SKIN: Warm and dry. HEAD: Normocephalic. EYES: no injection or drainage. NECK: Supple, trachea midline. CARDIOVASCULAR: Regular rate and rhythm RESPIRATORY: Breath sounds equal bilaterally. No accessory muscle use. GASTROINTESTINAL: Abdomen soft, non-tender, nondistended. EXTREMITIES: No cyanosis MUSCULOSKELETAL: Adequate muscle tone. NEUROLOGICAL: awake and alert, normal speech. moving all extremities. Assessment/Plan Problem List: (1) Renal cell carcinoma Status: Chronic Plan: --Votrient on hold for now History --history of metastatic renal cell carcinoma with metastasis to the lung. --first diagnosed in 2012, s/p left nephrectomy. + metastatic lung lesion. started on Sutent then stopped d/t side effects. --then started on Turicel, but developed progression of disease --started on Votrient in October 2014. developed liver failure and CHF, dose was reduced. --2016: Votrient temporarily put on hold after developing significant anemia and possible pneumonitis. --was in [place] for the summer, found to have progression of metastatic renal cell carcinoma with new development of malignant and pleural effusion. restarted on Votrient --admitted to the hospital for C-difficile colitis. 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 --last week, his diarrhea had resolved and he restarted taking the Votrient last week. --two days prior to admission, suddenly became very weak. --CT showed a 3.2 cm right kidney complex cyst which has been stable. (2) Chronic lymphocytic leukemia Status: Chronic Plan: --Currently under observation. --WBC stable --has anemia and mild thrombocytopenia, but that may be due to Votrient rather than the chronic lymphocytic leukemia. (3) Leukocytosis Status: Chronic Plan: --likely d/t CLL --ID following and on empiric abx --BC no growth x 3 days --Chest x-ray showed a new left pleural effusion with consolidation in the left lung base which could be pneumonia. --does not have significant shortness of breath or cough. (4) Weakness Status: Acute Plan: --started two days prior to admission --likely due to Votrient which is now on hold. (5) Macrocytic anemia Status: Acute Plan: --chronic and is likely a combination of Votrient, as well as CLL. --recent w/u for hemolysis was unremarkable. (6) C. difficile colitis Status: Chronic Plan: --recurrent --on PO Vanco + Flagyl (7) PE (pulmonary embolism) Status: Chronic Plan: --on Xarelto. --no new pulmonary symptoms. Assessment 66y/o male with h/o metastatic renal cell carcinoma admitted with weakness and fatigue Metastatic renal cell carcinoma Chronic lymphocytic leukemia C-difficile colitis Pulmonary embolism in 2013 current on Xarelto Coronary disease Chronic obstructive pulmonary disease Diabetes mellitus Anemia Anxiety Osteoarthritis Peripheral neuropathy from diabetes. Plan 1. monitor CBC 2. continue to hold Votrient 3. supportive care. Attending Statement The exam, history, and the medical decision-making described in the above note were completed with the assistance of the mid-level provider. I reviewed and agree with the findings presented. I attest that I had a [id number] encounter with the patient on the same day, and personally performed and documented my assessment and findings in the medical record. Feeling better. No more diarrhea. The weakness maybe due to Votrient whish is now on hold. Reviewed CT with pt. There is a 3.9cm mass in root of mesentery of unknown chronicity? He is requesting CT/MRI from [place] for comparison. If this is new, then will need to switch treatment for the renal call cancer. Isabella Kruse Apr 03, 2016 11:07 Waqas Corral MD Apr 03, 2016 15:46
[2016-04-03] MEDS: SALMETEROL XINAFOATE 50 MCG DISKUS INH SCH ×2 (12:22→21:04)
[2016-04-03] MEDS ORDERED: VANCOMYCIN INJ 1,500 MG in SODIUM CHLORID 0.9% 500 ML INJ 500 ML IV ONE (15:00)
--- NOTE | 2016-04-03 16:33 | HHI.PR ---
Subjective Remarks The patient says he is having a better day today. He says the diarrhea is manageable. He feels like he has increased strength in his lower extremities. Nursing at the bedside. Objective Vitals Vital Signs Date Time Temp Pulse Resp B/P Pulse Ox O2 Delivery O2 Flow Rate FiO2 04/03/16 12:04 97.4 80 20 131/88 96 04/03/16 09:18 Room Air 04/03/16 09:18 76 04/03/16 08:28 97.4 81 18 152/85 97 04/03/16 05:30 98.3 85 17 128/74 96 04/03/16 01:15 97.8 80 19 138/80 95 04/03/16 00:50 97.8 80 19 138/80 95 04/02/16 21:30 97.6 88 17 135/86 96 04/02/16 20:00 Room Air 04/02/16 20:00 91 I/O 04/02/16 04/02/16 04/02/16 04/03/16 04/03/16 04/03/16 07:00 15:00 23:00 07:00 15:00 23:00 Intake Total 360 ml 2039 ml 1772 ml Output Total 750 ml 800 ml 650 ml Balance -390 ml 1239 ml 1122 ml Intake Oral 360 ml 900 ml 950 ml IV Total 1139 ml 822 ml Output Urine Total 750 ml 800 ml 650 ml # Bowel Movements 1 3 0 0 Result Diagram: 04/03/16 0611 04/03/16 0611 Imaging Last Impressions Chest CT 03/31/16 0000 Signed Impressions: Service Date/Time: Thursday, March 31, 2016 09:02 - CONCLUSION: 1. Increasing pleural changes on the left. 2. Decreasing pleural and parenchymal changes on the right. Braeden Edward MD FACR Brain MRI 03/31/16 0000 Signed Impressions: Service Date/Time: Thursday, March 31, 2016 09:22 - CONCLUSION: I do not see evidence for metastatic disease, however, moderate motion artifact is present on the post contrast images. Subtle meningeal disease could be missed. Braeden Edward MD FACR Abdomen/Pelvis CT 03/31/16 0000 Signed Impressions: Service Date/Time: Thursday, March 31, 2016 09:02 - CONCLUSION: 3.9 cm mesenteric mass root of mesentery on the left not imaged previously. I have no recent films for comparison. Braeden Edward MD FACR Chest X-Ray 03/30/16 1629 Signed Impressions: Service Date/Time: March 16:32 - CONCLUSION: 1. New left pleural effusion with consolidation the left lung base. The findings could indicate pneumonia which may be postobstructive given the history of lung cancer. 2. Faint nodularity in the left lung which could represent metastatic disease. Ziyad Lyon MD Head CT 03/30/16 0000 Signed Impressions: Service Date/Time: , March 30, 2016 18:14 - CONCLUSION: Normal examination. Bill Branch MD Cervical Spine CT 03/30/16 0000 Signed Impressions: Service Date/Time: , March 30, 2016 18:14 - CONCLUSION: 1. No acute findings. Mild spinal stenosis in the lower cervical spine Bill Branch MD Objective Remarks GENERAL: Well-developed patient, in no apparent distress. SKIN: Multiple tattoos. HEENT: Normocephalic. Pupils equal round and reactive. Nose without bleeding. Airway patent. NECK: Trachea midline. No JVD. Supple. CARDIOVASCULAR: Regular rate and rhythm without murmurs, gallops, or rubs. RESPIRATORY: Diminished bases. No wheezes, rales, or rhonchi. GASTROINTESTINAL: Abdomen soft, non-tender, nondistended. Bowel Sounds normoactive x4. MUSCULOSKELETAL: Extremities without clubbing, cyanosis, TR- +1 bilateral lower extremity edema. NEUROLOGICAL: Awake and alert. Oriented x 3. Right lower extremity with 4 out of 5 strength, left lower extremity with 4 out of 5 strength. Arm strength symmetrical. Normal speech. PSYCH: Mood and affect appropriate. Medications and IVs Current Medications Medications (Trade) Dose Ordered Sig/Asia Route Start Time Stop Time Status Last Admin Pharmacy Profile Note 0 ml @ 0 mls/hr UNSCH OTHER 03/30/16 19:30 (NS 1000 ml Inj) 1,000 ml @ 100 mls/hr Q10H IV 03/30/16 20:00 04/03/16 04:10 (NS Flush) 2 ml UNSCH PRN FLUSH 03/30/16 19:30 (NS Flush) 2 ml BID FLUSH 03/30/16 21:00 04/02/16 21:49 (Zofran Inj) 4 mg Q6H PRN IVP 03/30/16 19:30 (Dulcolax Supp) 10 mg DAILY PRN SD 03/30/16 19:30 (Tylenol) 650 mg Q6H PRN PO 03/30/16 19:30 03/31/16 14:08 ([place] 5-325 Mg) 1 tab Q4H PRN PO 03/30/16 19:30 03/31/16 10:41 (Flagyl) 500 mg Q8HR PO 03/30/16 22:00 04/03/16 05:34 (Dilaudid Pf Inj) 1 mg Q3H PRN IV 03/31/16 10:30 04/01/16 10:05 ([place] 10-325 Mg) 1 tab Q4H PRN PO 03/31/16 10:30 04/03/16 05:33 (VANCOMYCIN for oral use only) 125 mg QID PO 03/31/16 18:00 04/03/16 12:22 (Xarelto) 20 mg DAILY PO 04/01/16 11:00 04/03/16 09:05 Gabapentin 300 mg 300 mg TID PO 04/01/16 11:15 04/03/16 12:22 (Zosyn 3.375 Gm Premix) 50 ml @ 100 mls/hr Q6H IV 04/02/16 00:00 04/03/16 12:22 (Coreg) 3.125 mg Q12HR PO 04/02/16 12:15 04/03/16 09:05 (Prinivil) 10 mg DAILY PO 04/02/16 12:15 04/03/16 09:05 (Folate) 1 mg DAILY PO 04/02/16 12:15 04/03/16 09:05 (Effexor Xr) 150 mg DAILY PO 04/02/16 12:15 04/03/16 09:05 (Lanoxin) 0.125 mg DAILY PO 04/02/16 12:15 04/03/16 09:06 (Pravachol) 40 mg HS PO 04/02/16 21:00 04/02/16 21:49 (Ambien) 10 mg HS PRN PO 04/02/16 12:15 04/02/16 21:47 (Lioresal) 10 mg Q8HR PRN PO 04/02/16 12:15 (OxyCONTIN CR) 20 mg Q12HR PO 04/02/16 21:00 04/03/16 09:07 (Serevent Diskus Inh) 50 mcg BID INH 04/02/16 21:00 04/03/16 12:22 Enalaprilat 1.25 mg 1.25 mg Q6H PRN IV PUSH 04/02/16 16:15 Vancomycin HCl 1500 mg/Sodium Chloride 515 ml @ 257.5 mls/ hr ONCE ONCE IV 04/03/16 15:00 04/03/16 16:59 (Potassium Phosphate Inj/NS 250 ml Inj) 260 ml @ 43.333 mls/ hr ONCE ONCE IV 04/03/16 17:00 04/03/16 22:59 A/P Problem List: (1) Sepsis ICD Code: A41.9 Status: Acute (2) PNA (pneumonia) ICD Code: J18.9 Status: Acute (3) C. difficile colitis ICD Code: A04.7 Status: Chronic (4) Muscular deconditioning ICD Code: R29.898 Status: Acute (5) Renal insufficiency ICD Code: N28.9 Status: Acute (6) Renal cell carcinoma ICD Code: C64.9 Status: Chronic (7) DM (diabetes mellitus) ICD Code: E11.9 Status: Chronic (8) CLL (chronic lymphocytic leukemia) ICD Code: C91.10 Status: Acute Assessment and Plan Sepsis HR 105, WBC 46 although underlying CLL. Source is likely post-obstructive PNA, C diff. S/p Rocephin/Zithro. ID consult appreciated. Blood cultures with no growth 04/02. - continue Vanc/ Zosyn per ID. PNA CXR w/ new left pleural effusion and consolidation of left lung base with faint nodularity and left lung possibly metastatic disease. Known h/o renal cell carcinoma w/ pulmonary mets. - Continue IV antibiotics as above. - DuoNeb, O2 nasal cannula when necessary. C Diff colitis S/p diagnosis during recent admit in [place], currently on Flagyl and vanco PO. C Diff antigen positive, persistent infection despite improved diarrhea. - Isolation. - Continue Flagyl PO add by mouth vancomycin as patient has been on treatment for C. difficile more than a month on Flagyl. - follow up with ID. Deconditioning Likely multifactorial: CLL, renal cell w/ mets, PNA, C Diff. Improved. - PT/ OT for eval and treatment. - Pt reluctant to discuss hospice on admission. He says he does not want resuscitation. Code status is DNR. - encourage PO intake. Renal cell carcinoma/ CLL With pulmonary mets. Ex- notes imaging in [place] positive for "brain tumor", no records available at this time. CT and MRI brain without evidence of mets. CT of the abdomen and pelvis done showed 3.9 cm mesenteric mass root of mesentery on the left not imaged previously. - oncology following. - As per recommendation hold chemotherapy drug Votrient. - treatment of infections as above. - compare imaging with imaging done in [place]. Atrial fibrillation The pt was evaluated by cardiology on last admission and a pacemaker was recommended. 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 Rate controlled 04/03. - continue Xarelto and Coreg. - telemetry. Anemia Per oncology recommendation blood transfusion 2. - Monitor H&H. Hemoglobin decreased 04/03. - Hemoccult requested. Hypophosphatemia Likely s/t C diff. - KPhos. Monitor. DVT Prophylaxis: Xarelto. Discharge Planning Awaiting clinical improvement. Ziyad Arias DO Apr 03, 2016 16:33
[2016-04-03] MEDS ORDERED: POTASSIUM PHOSPHATE INJ 30 MMOL in SODIUM CHLOR 0.9% 250 ML INJ 250 ML IV ONE (17:00)
[2016-04-03] MEDS: PRAVASTATIN SOD 40 MG TAB PO SCH (21:03)
[2016-04-03] MEDS: ZOLPIDEM TARTRATE 10 MG TAB PO PRN (22:46)
[2016-04-04] VITALS (9 sets, daily range): BP systolic 129–164; BP diastolic 72–95; PULSE 75–94; RESP 18; TEMP 97.1–98.5; O2SAT 95–99
[2016-04-04] MEDS: PIPERACIL-TAZO 3.375 GM PREMIX 50 ML IV SCH ×4 (00:37→17:39)
[2016-04-04] MEDS: SODIUM CHLOR 0.9% 1000 ML INJ 1,000 ML IV SCH ×3 (00:38→20:00)
[2016-04-04] MEDS: metroNIDAZOLE 500 MG TAB PO SCH ×3 (06:43→21:23)
--- NOTE | 2016-04-04 09:00 | PD.ONC.PN ---
Subjective Subjective Remarks Afebrile overnight. patient resting comfortably. Wants to know when he can go home. Objective Data Date Time Temp Pulse Resp B/P Pulse Ox O2 Delivery O2 Flow Rate FiO2 04/04/16 04:00 97.1 78 18 149/93 97 04/04/16 00:00 98.1 86 18 130/72 97 04/03/16 20:00 85 04/03/16 20:00 97.6 83 16 134/81 94 04/03/16 16:04 97.1 74 20 128/84 97 04/03/16 12:04 97.4 80 20 131/88 96 04/03/16 09:18 Room Air 04/03/16 09:18 76 04/04/16 04/04/16 04/04/16 07:00 15:00 23:00 Intake Total 2058 ml Balance 2058 ml Result Diagram: 04/03/1611 04/03/16 0611 Administered Medications Medications (Trade) Dose Ordered Sig/Asia Route PRN Reason Start Time Stop Time Status Last Admin Dose Admin Sodium Chloride (NS 1000 ml Inj) 1,000 ml @ 100 mls/hr Q10H IV 03/30/16 20:00 04/04/16 00:38 IV Flush (NS Flush) 2 ml BID FLUSH 03/30/16 21:00 04/02/16 21:49 Acetaminophen (Tylenol) 650 mg Q6H PRN PO FEVER/PAIN SCALE 1 TO 2 03/30/16 19:30 03/31/16 14:08 Acetaminophen/ Hydrocodone Bitart ([place] 5-325 Mg) 1 tab Q4H PRN PO PAIN SCALE 3 TO 5 03/30/16 19:30 03/31/16 10:41 Metronidazole (Flagyl) 500 mg Q8HR PO 03/30/16 22:00 04/04/16 06:43 Hydromorphone HCl (Dilaudid Pf Inj) 1 mg Q3H PRN IV Breakthrough pain 03/31/16 10:30 04/01/16 10:05 Acetaminophen/ Hydrocodone Bitart ([place] 10-325 Mg) 1 tab Q4H PRN PO pain 6-10 03/31/16 10:30 04/03/16 22:46 Vancomycin HCl (VANCOMYCIN for oral use only) 125 mg QID PO 03/31/16 18:00 04/03/16 21:00 Rivaroxaban (Xarelto) 20 mg DAILY PO 04/01/16 11:00 04/03/16 09:05 Gabapentin 300 mg 300 mg TID PO 04/01/16 11:15 04/03/16 16:20 Piperacillin Sod/ Tazobactam Sod (Zosyn 3.375 Gm Premix) 50 ml @ 100 mls/hr Q6H IV 04/02/16 00:00 04/04/16 06:43 Carvedilol (Coreg) 3.125 mg Q12HR PO 04/02/16 12:15 04/03/16 21:03 Lisinopril (Prinivil) 10 mg DAILY PO 04/02/16 12:15 04/03/16 09:05 Folic Acid (Folate) 1 mg DAILY PO 04/02/16 12:15 04/03/16 09:05 Venlafaxine HCl (Effexor Xr) 150 mg DAILY PO 04/02/16 12:15 04/03/16 09:05 Digoxin (Lanoxin) 0.125 mg DAILY PO 04/02/16 12:15 04/03/16 09:06 Pravastatin Sodium (Pravachol) 40 mg HS PO 04/02/16 21:00 04/03/16 21:03 Zolpidem Tartrate (Ambien) 10 mg HS PRN PO insomnia 04/02/16 12:15 04/03/16 22:46 Oxycodone HCl (OxyCONTIN CR) 20 mg Q12HR PO 04/02/16 21:00 04/03/16 21:03 Salmeterol Xinafoate (Serevent Diskus Inh) 50 mcg BID INH 04/02/16 21:00 04/03/16 21:04 Objective Remarks GENERAL: Middle aged male, lying in bed in [place]. SKIN: Warm and dry. HEAD: Normocephalic. EYES: no injection or drainage. NECK: Supple, trachea midline. CARDIOVASCULAR: Regular rate and rhythm RESPIRATORY: Breath sounds equal bilaterally. No accessory muscle use. GASTROINTESTINAL: Abdomen soft, non-tender, nondistended. EXTREMITIES: No cyanosis MUSCULOSKELETAL: Adequate muscle tone. NEUROLOGICAL: AOx3 normal speech. moving all extremities. Assessment/Plan Problem List: (1) Renal cell carcinoma Status: Chronic Plan: --Votrient on hold for now--patient is having records faxed from [place] History --history of metastatic renal cell carcinoma with metastasis to the lung. --first diagnosed in 2012, s/p left nephrectomy. + metastatic lung lesion. started on Sutent then stopped d/t side effects. --then started on Turicel, but developed progression of disease --started on Votrient in October 2014. developed liver failure and CHF, dose was reduced. --2016: Votrient temporarily put on hold after developing significant anemia and possible pneumonitis. --was in [place] for the summer, found to have progression of metastatic renal cell carcinoma with new development of malignant and pleural effusion. restarted on Votrient --admitted to the hospital for C-difficile colitis. 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 --last week, his diarrhea had resolved and he restarted taking the Votrient last week. --two days prior to admission, suddenly became very weak. --CT showed a 3.2 cm right kidney complex cyst which has been stable. (2) Chronic lymphocytic leukemia Status: Chronic Plan: --Currently under observation. --WBC stable --has anemia and mild thrombocytopenia, but that may be due to Votrient rather than the chronic lymphocytic leukemia. (3) Leukocytosis Status: Chronic Plan: --likely d/t CLL --ID following and on empiric abx --BC no growth x 3 days --Chest x-ray showed a new left pleural effusion with consolidation in the left lung base which could be pneumonia. --does not have significant shortness of breath or cough. (4) Weakness Status: Acute Plan: --started two days prior to admission --likely due to Votrient which is now on hold. (5) Macrocytic anemia Status: Acute Plan: --chronic and is likely a combination of Votrient, as well as CLL. --recent w/u for hemolysis was unremarkable. (6) C. difficile colitis Status: Chronic Plan: --recurrent --on PO Vanco + Flagyl (7) PE (pulmonary embolism) Status: Chronic Plan: --on Xarelto. --no new pulmonary symptoms. Assessment 66y/o male with h/o metastatic renal cell carcinoma admitted with weakness and fatigue Metastatic renal cell carcinoma Chronic lymphocytic leukemia C-difficile colitis Pulmonary embolism in 2013 current on Xarelto Coronary disease Chronic obstructive pulmonary disease Diabetes mellitus Anemia Anxiety Osteoarthritis Peripheral neuropathy from diabetes. Plan 1. patient clear for d/c when ID clears 2. continue to hold votrient 3. follow up in clinic within a week of discharge. Attending Statement The exam, history, and the medical decision-making described in the above note were completed with the assistance of the mid-level provider. I reviewed and agree with the findings presented. I attest that I had a [id number] encounter with the patient on the same day, and personally performed and documented my assessment and findings in the medical record. Feeling stronger. Ambulating around the room. No more diarrhea. Eager to go home. Can be d/c once clear by ID. Continue to hold Votrient. F/u Oncology clinic. Isabella Kruse Apr 04, 2016 09:00 Waqas Corral MD Apr 04, 2016 16:03
[2016-04-04] MEDS: LISINOPRIL 10 MG TAB PO SCH (09:06)
[2016-04-04] MEDS: VENLAFAXINE HCL XR 75 MG CAP PO SCH (09:06)
[2016-04-04] MEDS: VANCOMYCIN 500 MG VIAL (FOR ORAL USE ONLY) PO SCH ×4 (09:06→21:24)
[2016-04-04] MEDS: CARVEDILOL 3.125 MG TAB PO SCH ×2 (09:06→21:23)
[2016-04-04] MEDS: GABAPENTIN 300 MG CAP PO SCH ×3 (09:06→17:02)
[2016-04-04] MEDS: FOLIC ACID 1 MG TAB PO SCH (09:06)
[2016-04-04] MEDS: DIGOXIN 0.125 MG TAB PO SCH (09:06)
[2016-04-04] MEDS: oxyCODONE HCL 20 MG CONTROLLED RELEASE TAB PO SCH ×2 (09:07→21:23)
[2016-04-04] MEDS: RIVAROXABAN 20 MG TAB PO SCH (09:07)
[2016-04-04] MEDS: SODIUM CHLORIDE 0.9% FLUSH 5 ML FLUSH FLUSH SCH ×2 (09:08→21:25)
[2016-04-04] MEDS: SALMETEROL XINAFOATE 50 MCG DISKUS INH SCH ×2 (09:08→21:24)
[2016-04-04 09:26] LABS: HEMATOCRIT 26.5 % (39.0-51.0); MEAN CELL VOLUME 113.7 FL (80.0-100.0); MEAN CORPUSCULAR HEMOGLOBIN 37.3 PG (27.0-34.0); MEAN CORPUSCULAR HGB CONC 32.8 % (32.0-36.0); PLATELET COUNT 88 TH/MM3 (150-450); RED BLOOD COUNT 2.33 MIL/MM3 (4.50-5.90); RED CELL DISTRIBUTION WIDTH 31.2 % (11.6-17.2); WHITE BLOOD COUNT 31.7 TH/MM3 (4.0-11.0)
[2016-04-04 09:31] LABS: REVIEW FLAG FINAL
[2016-04-04 10:06] LABS: BICARBONATE 25.5 MEQ/L (21.0-32.0); MAGNESIUM 1.7 MG/DL (1.5-2.5); POTASSIUM 4.3 MEQ/L (3.5-5.1)
[2016-04-04 10:18] LABS: CALCIUM-PROTEIN CORRECTED 8.2 MG/DL (8.5-10.1)
[2016-04-04] MEDS ORDERED: CALCIUM GLUCONATE INJ 1 GM in DEXTROSE 5% IN WATER 100ML INJ 100 ML IV ONE ×2 (12:00)
[2016-04-04] MEDS ORDERED: POTASSIUM PHOSPHATE INJ 30 MMOL in SODIUM CHLOR 0.9% 250 ML INJ 250 ML IV ONE (12:00)
--- NOTE | 2016-04-04 13:01 | HHI.PR ---
Subjective Remarks The patient wants to go home. He does not want to consider going to rehabilitation. He thinks he will be strong enough to go home in the morning. He wanted to know if he still had C. difficile. He says he has not been having diarrhea. No other acute complaints. Discussed with nursing. Objective Vitals Vital Signs Date Time Temp Pulse Resp B/P Pulse Ox O2 Delivery O2 Flow Rate FiO2 04/04/16 09:06 Room Air 04/04/16 09:06 88 04/04/16 08:00 97.9 94 18 141/95 98 04/04/16 04:00 97.1 78 18 149/93 97 04/04/16 00:00 98.1 86 18 130/72 97 04/03/16 20:00 85 04/03/16 20:00 97.6 83 16 134/81 94 04/03/16 16:04 97.1 74 20 128/84 97 I/O 04/03/16 04/03/16 04/03/16 04/04/16 04/04/16 04/04/16 06:59 14:59 22:59 06:59 14:59 22:59 Intake Total 1772 ml 480 ml 720 ml 2058 ml Output Total 650 ml 400 ml Balance 1122 ml 480 ml 320 ml 2058 ml Intake Oral 950 ml 480 ml 720 ml IV Total 822 ml 2058 ml Output Urine Total 650 ml 400 ml # Voids 3 # Bowel Movements 0 1 0 Result Diagram: 04/04/16 0815 04/04/16 0815 Imaging Last Impressions Chest CT 03/31/16 0000 Signed Impressions: Service Date/Time: Thursday, March 31, 2016 09:02 - CONCLUSION: 1. Increasing pleural changes on the left. 2. Decreasing pleural and parenchymal changes on the right. Braeden Edward MD FACR Brain MRI 03/31/16 0000 Signed Impressions: Service Date/Time: Thursday, March 31, 2016 09:22 - CONCLUSION: I do not see evidence for metastatic disease, however, moderate motion artifact is present on the post contrast images. Subtle meningeal disease could be missed. Braeden Edward MD FACR Abdomen/Pelvis CT 03/31/16 0000 Signed Impressions: Service Date/Time: Thursday, March 31, 2016 09:02 - CONCLUSION: 3.9 cm mesenteric mass root of mesentery on the left not imaged previously. I have no recent films for comparison. Braeden Edward MD FACR Chest X-Ray 03/30/16 1629 Signed Impressions: Service Date/Time: March 16:32 - CONCLUSION: 1. New left pleural effusion with consolidation the left lung base. The findings could indicate pneumonia which may be postobstructive given the history of lung cancer. 2. Faint nodularity in the left lung which could represent metastatic disease. Ziyad Lyon MD Head CT 03/30/16 0000 Signed Impressions: Service Date/Time: , March 30, 2016 18:14 - CONCLUSION: Normal examination. Bill Branch MD Cervical Spine CT 03/30/16 0000 Signed Impressions: Service Date/Time: , March 30, 2016 18:14 - CONCLUSION: 1. No acute findings. Mild spinal stenosis in the lower cervical spine Bill Branch MD Objective Remarks GENERAL: Well-developed patient, in no apparent distress. SKIN: Multiple tattoos. HEENT: Normocephalic. Pupils equal round and reactive. Nose without bleeding. Airway patent. NECK: Trachea midline. No JVD. Supple. CARDIOVASCULAR: Regular rate and rhythm without murmurs, gallops, or rubs. RESPIRATORY: Diminished bases. No wheezes, rales, or rhonchi. GASTROINTESTINAL: Abdomen soft, non-tender, nondistended. Bowel Sounds normoactive x4. MUSCULOSKELETAL: Extremities without clubbing, cyanosis, TR- +1 bilateral lower extremity edema. NEUROLOGICAL: Awake and alert. Oriented x 3. Right lower extremity with 4 out of 5 strength, left lower extremity with 4 out of 5 strength. Arm strength symmetrical. Normal speech. PSYCH: Mood and affect appropriate. Medications and IVs Current Medications Medications (Trade) Dose Ordered Sig/Asia Route Start Time Stop Time Status Last Admin Pharmacy Profile Note 0 ml @ 0 mls/hr UNSCH OTHER 03/30/16 19:30 (NS 1000 ml Inj) 1,000 ml @ 100 mls/hr Q10H IV 03/30/16 20:00 04/04/16 09:07 (NS Flush) 2 ml UNSCH PRN FLUSH 03/30/16 19:30 (NS Flush) 2 ml BID FLUSH 03/30/16 21:00 04/02/16 21:49 (Zofran Inj) 4 mg Q6H PRN IVP 03/30/16 19:30 (Dulcolax Supp) 10 mg DAILY PRN MO 03/30/16 19:30 (Tylenol) 650 mg Q6H PRN PO 03/30/16 19:30 03/31/16 14:08 (Rector 5-325 Mg) 1 tab Q4H PRN PO 03/30/16 19:30 03/31/16 10:41 (Flagyl) 500 mg Q8HR PO 03/30/16 22:00 04/04/16 06:43 (Dilaudid Pf Inj) 1 mg Q3H PRN IV 03/31/16 10:30 04/01/16 10:05 (Rector 10-325 Mg) 1 tab Q4H PRN PO 03/31/16 10:30 04/03/16 22:46 (VANCOMYCIN for oral use only) 125 mg QID PO 03/31/16 18:00 04/04/16 12:00 (Xarelto) 20 mg DAILY PO 04/01/16 11:00 04/04/16 09:07 Gabapentin 300 mg 300 mg TID PO 04/01/16 11:15 04/04/16 12:00 (Zosyn 3.375 Gm Premix) 50 ml @ 100 mls/hr Q6H IV 04/02/16 00:00 04/04/16 11:59 (Coreg) 3.125 mg Q12HR PO 04/02/16 12:15 04/04/16 09:06 (Prinivil) 10 mg DAILY PO 04/02/16 12:15 04/04/16 09:06 (Folate) 1 mg DAILY PO 04/02/16 12:15 04/04/16 09:06 (Effexor Xr) 150 mg DAILY PO 04/02/16 12:15 04/04/16 09:06 (Lanoxin) 0.125 mg DAILY PO 04/02/16 12:15 04/04/16 09:06 (Pravachol) 40 mg HS PO 04/02/16 21:00 04/03/16 21:03 (Ambien) 10 mg HS PRN PO 04/02/16 12:15 04/03/16 22:46 (Lioresal) 10 mg Q8HR PRN PO 04/02/16 12:15 (OxyCONTIN CR) 20 mg Q12HR PO 04/02/16 21:00 04/04/16 09:07 (Serevent Diskus Inh) 50 mcg BID INH 04/02/16 21:00 04/04/16 09:08 Enalaprilat 1.25 mg 1.25 mg Q6H PRN IV PUSH 04/02/16 16:15 (Vancomycin Inj/ NS 500 ml Inj) 515 ml @ 250 mls/hr Q24H IV 04/04/16 14:00 Miscellaneous Information SPECIFIC LAB TO BE DRAWN:VANCOMYCIN TROUGH DATE TO... ONCE ONCE XX 04/06/16 13:45 04/06/16 13:46 Potassium Phosphate 30 mmol/ Sodium Chloride 260 ml @ 43.333 mls/ hr ONCE ONCE IV 04/04/16 12:00 04/04/16 17:59 (Calcium Gluconate Inj/D5W 100 ml Inj) 110 ml @ 110 mls/hr ONCE ONCE IV 04/04/16 12:00 04/04/16 12:59 A/P Problem List: (1) Sepsis ICD Code: A41.9 Status: Acute (2) PNA (pneumonia) ICD Code: J18.9 Status: Acute (3) C. difficile colitis ICD Code: A04.7 Status: Chronic (4) Muscular deconditioning ICD Code: R29.898 Status: Acute (5) Renal insufficiency ICD Code: N28.9 Status: Acute (6) Renal cell carcinoma ICD Code: C64.9 Status: Chronic (7) DM (diabetes mellitus) ICD Code: E11.9 Status: Chronic (8) CLL (chronic lymphocytic leukemia) ICD Code: C91.10 Status: Acute Assessment and Plan Sepsis HR 105, WBC 46 although underlying CLL. Source is likely post-obstructive PNA, C diff. S/p Rocephin/Zithro. ID consult appreciated. Blood cultures with no growth, final. - continue Vanc/ Zosyn per ID. PNA CXR w/ new left pleural effusion and consolidation of left lung base with faint nodularity and left lung possibly metastatic disease. Known h/o renal cell carcinoma w/ pulmonary mets. - Continue IV antibiotics as above. - DuoNeb, O2 nasal cannula when necessary. C Diff colitis S/p diagnosis during recent admit in [place], currently on Flagyl and vanco PO. C Diff antigen positive, persistent infection despite improved diarrhea. - Isolation. - Continue Flagyl PO add by mouth vancomycin as patient has been on treatment for C. difficile more than a month on Flagyl. - follow up with ID. - repeat C diff PCR 04/04. Deconditioning Likely multifactorial: CLL, renal cell w/ mets, PNA, C Diff. Improved. - PT/ OT for eval and treatment. Recommend rehab, but pt wants to go home. - Pt reluctant to discuss hospice on admission. He says he does not want resuscitation. Code status is DNR. - encourage PO intake. Renal cell carcinoma/ CLL With pulmonary mets. Ex- notes imaging in [place] positive for "brain tumor", no records available at this time. CT and MRI brain without evidence of mets. CT of the abdomen and pelvis done showed 3.9 cm mesenteric mass root of mesentery on the left not imaged previously. - oncology following. Cleared for discharge. - As per recommendation hold chemotherapy drug Votrient. - treatment of infections as above. - compare imaging with imaging done in [place]. Atrial fibrillation The pt was evaluated by cardiology on last admission and a pacemaker was recommended. The pt did not want a pacemaker and followed up with his clinical informatics physician in [place]. Rate controlled 04/04. - continue Xarelto and Coreg. - telemetry. Anemia Per oncology recommendation blood transfusion 2. - Monitor H&H. Hemoglobin stable 04/04. - Hemoccult requested. Hypophosphatemia Likely s/t C diff. - KPhos. Monitor. DVT Prophylaxis: Xarelto. Discharge Planning D/c to SNF vs home with [facility] when cleared by BRANDIE. Ziyad Arias DO Apr 04, 2016 13:01
[2016-04-04] MEDS: VANCOMYCIN INJ 1,500 MG in SODIUM CHLORID 0.9% 500 ML INJ 500 ML IV SCH (14:49)
[2016-04-04] MEDS: CALCIUM CARBONATE 1.25 GM (CA 500 MG) TAB PO SCH ×2 (14:49→21:23)
[2016-04-04] MEDS: POTASSIUM PHOSPHATE MONOBASIC 500 MG TAB PO SCH ×2 (14:49→21:24)
[2016-04-04] MEDS: PRAVASTATIN SOD 40 MG TAB PO SCH (21:23)
[2016-04-04] MEDS: ZOLPIDEM TARTRATE 10 MG TAB PO PRN (21:33)
[2016-04-05] VITALS (7 sets, daily range): BP systolic 133–158; BP diastolic 74–85; PULSE 72–99; RESP 16–18; TEMP 97.1–98.7; O2SAT 95–98
[2016-04-05 02:01] LABS: C. DIFF EPI 027 PRESUMPTIVE NEGATIVE (NEGATIVE); C. DIFF TOXIN PCR NEGATIVE (NEGATIVE)
[2016-04-05] MEDS: metroNIDAZOLE 500 MG TAB PO SCH ×3 (05:39→20:52)
[2016-04-05] MEDS: PIPERACIL-TAZO 3.375 GM PREMIX 50 ML IV SCH ×3 (05:39→13:59)
[2016-04-05] MEDS: SODIUM CHLOR 0.9% 1000 ML INJ 1,000 ML IV SCH ×2 (05:43→13:59)
[2016-04-05] MEDS: SODIUM CHLORIDE 0.9% FLUSH 5 ML FLUSH FLUSH SCH ×2 (09:00→20:39)
[2016-04-05] MEDS: LISINOPRIL 10 MG TAB PO SCH (10:05)
[2016-04-05] MEDS: POTASSIUM PHOSPHATE MONOBASIC 500 MG TAB PO SCH (10:05)
[2016-04-05] MEDS: FOLIC ACID 1 MG TAB PO SCH (10:05)
[2016-04-05] MEDS: RIVAROXABAN 20 MG TAB PO SCH (10:05)
[2016-04-05] MEDS: CARVEDILOL 3.125 MG TAB PO SCH ×2 (10:05→20:38)
[2016-04-05] MEDS: CALCIUM CARBONATE 1.25 GM (CA 500 MG) TAB PO SCH ×2 (10:05→20:38)
[2016-04-05] MEDS: GABAPENTIN 300 MG CAP PO SCH ×3 (10:05→18:02)
[2016-04-05] MEDS: oxyCODONE HCL 20 MG CONTROLLED RELEASE TAB PO SCH ×2 (10:06→20:38)
[2016-04-05] MEDS: VANCOMYCIN 500 MG VIAL (FOR ORAL USE ONLY) PO SCH ×4 (10:06→20:39)
[2016-04-05] MEDS: DIGOXIN 0.125 MG TAB PO SCH (10:06)
[2016-04-05] MEDS: VENLAFAXINE HCL XR 75 MG CAP PO SCH (10:06)
[2016-04-05] MEDS: SALMETEROL XINAFOATE 50 MCG DISKUS INH SCH ×2 (10:08→20:44)
--- NOTE | 2016-04-05 11:34 | PD.ONC.PN ---
Subjective Subjective Remarks Afebrile overnight. Pt resting in bed asleep on approach. Awakens easily. He tells me he woke up a lot overnight. Pain is improved. He is asking when he's going home. Objective Data Date Time Temp Pulse Resp B/P Pulse Ox O2 Delivery O2 Flow Rate FiO2 04/05/16 08:00 97.1 89 18 133/74 96 04/05/16 03:39 97.6 92 18 145/84 96 04/04/16 23:12 98.5 90 18 129/82 96 04/04/16 20:57 97.4 82 18 164/82 95 04/04/16 20:03 75 04/04/16 20:00 Room Air 04/04/16 16:00 97.4 84 18 132/82 99 04/04/16 12:00 97.9 84 18 135/75 96 04/05/16 04/05/16 04/05/16 07:00 15:00 23:00 Intake Total 1134 ml Output Total 550 ml Balance 584 ml Result Diagram: 04/04/16 0815 04/04/16 0815 Laboratory Results Laboratory Tests Test 04/04/16 23:45 Stool C. difficile Toxin (PCR) NEGATIVE Stl C. difficile Toxin PRESUMPTIVE Epiderm 027 NEGATIVE Culture Results Microbiology Date/Time Procedure Status Source Growth 04/04/16 23:45 Stool Occult Blood (SARAH) - Final Complete Stool Stool HEMOCCULT POSITIVE Administered Medications Medications (Trade) Dose Ordered Sig/Asia Route PRN Reason Start Time Stop Time Status Last Admin Dose Admin Sodium Chloride (NS 1000 ml Inj) 1,000 ml @ 100 mls/hr Q10H IV 03/30/16 20:00 04/04/16 20:00 IV Flush (NS Flush) 2 ml BID FLUSH 03/30/16 21:00 04/04/16 21:25 Acetaminophen (Tylenol) 650 mg Q6H PRN PO FEVER/PAIN SCALE 1 TO 2 03/30/16 19:30 03/31/16 14:08 Acetaminophen/ Hydrocodone Bitart (Stanford 5-325 Mg) 1 tab Q4H PRN PO PAIN SCALE 3 TO 5 03/30/16 19:30 03/31/16 10:41 Metronidazole (Flagyl) 500 mg Q8HR PO 03/30/16 22:00 04/05/16 05:39 Hydromorphone HCl (Dilaudid Pf Inj) 1 mg Q3H PRN IV Breakthrough pain 03/31/16 10:30 04/01/16 10:05 Acetaminophen/ Hydrocodone Bitart (Stanford 10-325 Mg) 1 tab Q4H PRN PO pain 6-10 03/31/16 10:30 04/03/16 22:46 Vancomycin HCl (VANCOMYCIN for oral use only) 125 mg QID PO 03/31/16 18:00 04/05/16 10:06 Rivaroxaban (Xarelto) 20 mg DAILY PO 04/01/16 11:00 04/05/16 10:05 Gabapentin 300 mg 300 mg TID PO 04/01/16 11:15 04/05/16 10:05 Piperacillin Sod/ Tazobactam Sod (Zosyn 3.375 Gm Premix) 50 ml @ 100 mls/hr Q6H IV 04/02/16 00:00 04/05/16 05:39 Carvedilol (Coreg) 3.125 mg Q12HR PO 04/02/16 12:15 04/05/16 10:05 Lisinopril (Prinivil) 10 mg DAILY PO 04/02/16 12:15 04/05/16 10:05 Folic Acid (Folate) 1 mg DAILY PO 04/02/16 12:15 04/05/16 10:05 Venlafaxine HCl (Effexor Xr) 150 mg DAILY PO 04/02/16 12:15 04/05/16 10:06 Digoxin (Lanoxin) 0.125 mg DAILY PO 04/02/16 12:15 04/05/16 10:06 Pravastatin Sodium (Pravachol) 40 mg HS PO 04/02/16 21:00 04/04/16 21:23 Zolpidem Tartrate (Ambien) 10 mg HS PRN PO insomnia 04/02/16 12:15 04/04/16 21:33 Oxycodone HCl (OxyCONTIN CR) 20 mg Q12HR PO 04/02/16 21:00 04/05/16 10:06 Salmeterol Xinafoate 50 mcg 50 mcg BID INH 04/02/16 21:00 04/05/16 10:08 Vancomycin HCl/ Sodium Chloride (Vancomycin Inj/ NS 500 ml Inj) 515 ml @ 250 mls/hr Q24H IV 04/04/16 14:00 04/04/16 14:49 Calcium Carbonate (Oscal) 500 mg Q12HR PO 04/04/16 14:00 04/05/16 10:05 Potassium Phosphate (K-Phos) 1,000 mg Q12HR PO 04/04/16 14:00 04/05/16 10:05 Objective Remarks GENERAL: Middle aged male, lying in bed in no distress. SKIN: Warm and dry. HEAD: Normocephalic. EYES: no injection or drainage. NECK: Supple, trachea midline. CARDIOVASCULAR: +S1/S2. RESPIRATORY: Breath sounds equal bilaterally. No accessory muscle use. GASTROINTESTINAL: Abdomen soft, non-tender, nondistended. EXTREMITIES: No cyanosis MUSCULOSKELETAL: Adequate muscle tone. NEUROLOGICAL: AOx3 normal speech. moving all extremities. Assessment/Plan Problem List: (1) Renal cell carcinoma Status: Chronic Plan: --Votrient on hold for now--patient is having records faxed from [place] History --history of metastatic renal cell carcinoma with metastasis to the lung. --first diagnosed in 2012, s/p left nephrectomy. + metastatic lung lesion. started on Sutent then stopped d/t side effects. --then started on Turicel, but developed progression of disease --started on Votrient in October 2014. developed liver failure and CHF, dose was reduced. --2016: Votrient temporarily put on hold after developing significant anemia and possible pneumonitis. --was in [place] for the summer, found to have progression of metastatic renal cell carcinoma with new development of malignant and pleural effusion. restarted on Votrient --admitted to the hospital for C-difficile colitis. 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 --last week, his diarrhea had resolved and he restarted taking the Votrient last week. --two days prior to admission, suddenly became very weak. --CT showed a 3.2 cm right kidney complex cyst which has been stable. (2) Chronic lymphocytic leukemia Status: Chronic Plan: --Currently under observation. --WBC stable --has anemia and mild thrombocytopenia, but that may be due to Votrient rather than the chronic lymphocytic leukemia. (3) Leukocytosis Status: Chronic Plan: --likely d/t CLL --ID following and on empiric abx --BC no growth x 3 days --Chest x-ray showed a new left pleural effusion with consolidation in the left lung base which could be pneumonia. --does not have significant shortness of breath or cough. (4) Weakness Status: Acute Plan: --started two days prior to admission --likely due to Votrient which is now on hold. (5) Macrocytic anemia Status: Acute Plan: --chronic and is likely a combination of Votrient, as well as CLL. --recent w/u for hemolysis was unremarkable. (6) C. difficile colitis Status: Resolved Plan: -- Cdiff toxin clear on 04/04/16. --on PO Vanco + Flagyl (7) PE (pulmonary embolism) Status: Chronic Plan: --on Xarelto. --no new pulmonary symptoms. Assessment 66y/o male with h/o metastatic renal cell carcinoma admitted with weakness and fatigue Metastatic renal cell carcinoma Chronic lymphocytic leukemia C-difficile colitis Pulmonary embolism in 2013 current on Xarelto Coronary disease Chronic obstructive pulmonary disease Diabetes mellitus Anemia Anxiety Osteoarthritis Peripheral neuropathy from diabetes. Plan 1. Hemoccult positive. 2. Consult GI. 3. Followup in one week with Dr. Corral. 4. Supportive care. Attending Statement The exam, history, and the medical decision-making described in the above note were completed with the assistance of the mid-level provider. I reviewed and agree with the findings presented. I attest that I had a [id number] encounter with the patient on the same day, and personally performed and documented my assessment and findings in the medical record. Feeling better. Denies Gi bleeding. Stool OB positive. Hgb stable. Consult GI. Can be d/c once clear by ID and GI. Jocelyn Sam Apr 05, 2016 11:34 Waqas Corral MD Apr 05, 2016 14:52
[2016-04-05 11:37] LABS: HEMATOCRIT 25.6 % (39.0-51.0); MEAN CELL VOLUME 115.2 FL (80.0-100.0); MEAN CORPUSCULAR HEMOGLOBIN 37.8 PG (27.0-34.0); MEAN CORPUSCULAR HGB CONC 32.8 % (32.0-36.0); PLATELET COUNT 95 TH/MM3 (150-450); RED BLOOD COUNT 2.22 MIL/MM3 (4.50-5.90); RED CELL DISTRIBUTION WIDTH 31.1 % (11.6-17.2); WHITE BLOOD COUNT 32.2 TH/MM3 (4.0-11.0)
[2016-04-05 11:40] LABS: REVIEW FLAG FINAL
[2016-04-05 11:56] LABS: BICARBONATE 24.1 MEQ/L (21.0-32.0); MAGNESIUM 1.6 MG/DL (1.5-2.5); POTASSIUM 4.4 MEQ/L (3.5-5.1)
[2016-04-05 12:11] LABS: CALCIUM-PROTEIN CORRECTED 8.3 MG/DL (8.5-10.1)
[2016-04-05] MEDS: VANCOMYCIN INJ 1,500 MG in SODIUM CHLORID 0.9% 500 ML INJ 500 ML IV SCH (14:32)
--- NOTE | 2016-04-05 15:36 | HHI.IDPN ---
Subjective Subjective Remarks doing well no co afebrile on RA Antibiotics vanco flagyl zosyn Allergies: Coded Allergies: Morphine (Unverified Adverse Reaction, Severe, VOMITING, 03/30/16) Objective . Vital Signs Date Time Temp Pulse Resp B/P Pulse Ox O2 Delivery O2 Flow Rate FiO2 04/05/16 08:00 97.1 89 18 133/74 96 04/05/16 08:00 Room Air 04/05/16 03:39 97.6 92 18 145/84 96 04/04/16 23:12 98.5 90 18 129/82 96 04/04/16 20:57 97.4 82 18 164/82 95 04/04/16 20:03 75 04/04/16 20:00 Room Air 04/04/16 16:00 97.4 84 18 132/82 99 04/04/16 04/04/16 04/05/16 15:00 23:00 07:00 Intake Total 480 ml 1756 ml 1134 ml Output Total 200 ml 550 ml Balance 480 ml 1556 ml 584 ml Intake Oral 480 ml 720 ml 480 ml IV Total 1036 ml 654 ml Output Urine Total 200 ml 550 ml # Voids 1 # Bowel Movements 1 1 1 . Laboratory Tests Test 04/04/16 04/05/16 08:15 10:15 White Blood Count 31.7 TH/MM3 32.2 TH/MM3 Red Blood Count 2.33 MIL/MM3 2.22 MIL/MM3 Hemoglobin 8.7 GM/DL 8.4 GM/DL Hematocrit 26.5 % 25.6 % Mean Corpuscular Volume 113.7 FL 115.2 FL Mean Corpuscular Hemoglobin 37.3 PG 37.8 PG Mean Corpuscular Hemoglobin 32.8 % 32.8 % Concent Red Cell Distribution Width 31.2 % 31.1 % Platelet Count 88 TH/MM3 95 TH/MM3 Mean Platelet Volume 11.0 FL 11.7 FL Laboratory Tests Test 04/04/16 04/05/16 08:15 10:15 Sodium Level 141 MEQ/L 142 MEQ/L Potassium Level 4.3 MEQ/L 4.4 MEQ/L Chloride Level 110 MEQ/L 111 MEQ/L Carbon Dioxide Level 25.5 MEQ/L 24.1 MEQ/L Anion Gap 6 MEQ/L 7 MEQ/L Blood Urea Nitrogen 12 MG/DL 12 MG/DL Creatinine 0.64 MG/DL 0.72 MG/DL Estimat Glomerular Filtration 126 ML/MIN 110 ML/MIN Rate Random Glucose 78 MG/DL 113 MG/DL Calcium Level 6.9 MG/DL 6.9 MG/DL Protein Corrected Calcium 8.2 MG/DL 8.3 MG/DL Phosphorus Level 1.3 MG/DL 1.6 MG/DL Magnesium Level 1.7 MG/DL 1.6 MG/DL Total Protein 4.7 GM/DL 4.5 GM/DL Microbiology Date/Time Procedure Status Source Growth 04/04/16 23:45 Stool Occult Blood (SARAH) - Final Complete Stool Stool HEMOCCULT POSITIVE Imaging Last Impressions Chest CT 03/31/16 0000 Signed Impressions: Service Date/Time: Thursday, March 31, 2016 09:02 - CONCLUSION: 1. Increasing pleural changes on the left. 2. Decreasing pleural and parenchymal changes on the right. Braeden Edward MD FACR Brain MRI 03/31/16 0000 Signed Impressions: Service Date/Time: Thursday, March 31, 2016 09:22 - CONCLUSION: I do not see evidence for metastatic disease, however, moderate motion artifact is present on the post contrast images. Subtle meningeal disease could be missed. Braeden Edward MD FACR Abdomen/Pelvis CT 03/31/16 0000 Signed Impressions: Service Date/Time: Thursday, March 31, 2016 09:02 - CONCLUSION: 3.9 cm mesenteric mass root of mesentery on the left not imaged previously. I have no recent films for comparison. Braeden Edward MD FACR Chest X-Ray 03/30/16 1629 Signed Impressions: Service Date/Time: March 16:32 - CONCLUSION: 1. New left pleural effusion with consolidation the left lung base. The findings could indicate pneumonia which may be postobstructive given the history of lung cancer. 2. Faint nodularity in the left lung which could represent metastatic disease. Ziyad Lyon MD Head CT 03/30/16 0000 Signed Impressions: Service Date/Time: March 18:14 - CONCLUSION: Normal examination. Bill Branch MD Cervical Spine CT 03/30/16 0000 Signed Impressions: Service Date/Time: March 18:14 - CONCLUSION: 1. No acute findings. Mild spinal stenosis in the lower cervical spine Bill Branch MD Physical Exam CONSTITUTIONAL/GENERAL: This is an adequately nourished patient, in no apparent distress. SKIN: No jaundice, rashes, or lesions. Skin temperature appropriate. Not diaphoretic. EYES: Pupils equal and round and reactive. Extraocular motions intact. No scleral icterus. No injection or drainage. Fundi not examined. ENT: Oral mucosae without visible erythema, exudates, masses, or lesions. CARDIOVASCULAR: Regular rate and rhythm without murmurs, gallops, or rubs. No JVD. Peripheral pulses symmetric. RESPIRATORY/CHEST: Symmetric, unlabored respirations. Clear to auscultation. Breath sounds equal bilaterally. No wheezes, rales, or rhonchi. GASTROINTESTINAL: Abdomen soft, non-tender, nondistended. No hepato-splenomegaly , or palpable masses. No guarding. Bowel sounds present. MUSCULOSKELETAL: Extremities without clubbing, cyanosis, or edema. No joint tenderness or effusion noted. No calf tenderness. No mottling or clubbing. NEUROLOGICAL: Awake and alert. on focal PSYCHIATRIC: No obvious anxiety/depression. no apparent hallucinations or other psychotic thought process. Assessment & Plan Remarks Leukocytosis, primarily 2/2 CLL with lymphocytosis His ANC low 600 ? Post obstructive PNA: pt denies cough /sputum production, states he previously had changes on his imagin studies Recent C.diff - clinically resolved Generalyzed weakness, likely multifactorial, with medications contributing Complex medical history with 2 simaultateous malignancy, including metastatic renal ca and CLL , on complex chemo cont po vanco to complete C.diff course -complete zosyn, IV vanco - repeat CXR - fu ANC - Jessi Ashford MD Apr 05, 2016 15:36
--- NOTE | 2016-04-05 16:32 | HHI.PR ---
Subjective Remarks The patient would like to go home. He says he has not noticed blood in his stool. He has had a bowel movement today. He says he feels stronger and is able to ambulate. No other acute concerns. Objective Vitals Vital Signs Date Time Temp Pulse Resp B/P Pulse Ox O2 Delivery O2 Flow Rate FiO2 04/05/16 08:00 97.1 89 18 133/74 96 04/05/16 08:00 Room Air 04/05/16 03:39 97.6 92 18 145/84 96 04/04/16 23:12 98.5 90 18 129/82 96 04/04/16 20:57 97.4 82 18 164/82 95 04/04/16 20:03 75 04/04/16 20:00 Room Air I/O 04/04/16 04/04/16 04/04/16 04/05/16 04/05/16 04/05/16 07:00 15:00 23:00 07:00 15:00 23:00 Intake Total 2058 ml 480 ml 1756 ml 1134 ml Output Total 200 ml 550 ml Balance 2058 ml 480 ml 1556 ml 584 ml Intake Oral 480 ml 720 ml 480 ml IV Total 2058 ml 1036 ml 654 ml Output Urine Total 200 ml 550 ml # Voids 1 # Bowel Movements 1 1 1 Result Diagram: 04/05/16 1015 04/05/16 1015 Imaging Last Impressions Chest CT 03/31/16 0000 Signed Impressions: Service Date/Time: Thursday, March 31, 2016 09:02 - CONCLUSION: 1. Increasing pleural changes on the left. 2. Decreasing pleural and parenchymal changes on the right. Braeden Edward MD FACR Brain MRI 03/31/16 0000 Signed Impressions: Service Date/Time: Thursday, March 31, 2016 09:22 - CONCLUSION: I do not see evidence for metastatic disease, however, moderate motion artifact is present on the post contrast images. Subtle meningeal disease could be missed. Braeden Edward MD FACR Abdomen/Pelvis CT 03/31/16 0000 Signed Impressions: Service Date/Time: Thursday, March 31, 2016 09:02 - CONCLUSION: 3.9 cm mesenteric mass root of mesentery on the left not imaged previously. I have no recent films for comparison. Braeden Edward MD FACR Chest X-Ray 03/30/16 1629 Signed Impressions: Service Date/Time: March 16:32 - CONCLUSION: 1. New left pleural effusion with consolidation the left lung base. The findings could indicate pneumonia which may be postobstructive given the history of lung cancer. 2. Faint nodularity in the left lung which could represent metastatic disease. Ziyad Lyon MD Head CT 03/30/16 0000 Signed Impressions: Service Date/Time: March 18:14 - CONCLUSION: Normal examination. Bill Branch MD Cervical Spine CT 03/30/16 0000 Signed Impressions: Service Date/Time: March 18:14 - CONCLUSION: 1. No acute findings. Mild spinal stenosis in the lower cervical spine Bill Branch MD Objective Remarks GENERAL: Well-developed patient, in no apparent distress. SKIN: Multiple tattoos. HEENT: Normocephalic. Pupils equal round and reactive. Nose without bleeding. Airway patent. NECK: Trachea midline. No JVD. Supple. CARDIOVASCULAR: Regular rate and rhythm without murmurs, gallops, or rubs. RESPIRATORY: Diminished bases. No wheezes, rales, or rhonchi. GASTROINTESTINAL: Abdomen soft, non-tender, nondistended. Bowel Sounds normoactive x4. MUSCULOSKELETAL: Extremities without clubbing, cyanosis, TR- +1 bilateral lower extremity edema. NEUROLOGICAL: Awake and alert. Oriented x 3. Right lower extremity with 4 out of 5 strength, left lower extremity with 4 out of 5 strength. Arm strength symmetrical. Normal speech. PSYCH: Mood and affect appropriate. Medications and IVs Current Medications Medications (Trade) Dose Ordered Sig/[place] Route Start Time Stop Time Status Last Admin (NS 1000 ml Inj) 1,000 ml @ 100 mls/hr Q10H IV 03/30/16 20:00 04/05/16 13:59 (NS Flush) 2 ml UNSCH PRN FLUSH 03/30/16 19:30 (NS Flush) 2 ml BID FLUSH 03/30/16 21:00 04/04/16 21:25 (Zofran Inj) 4 mg Q6H PRN IVP 03/30/16 19:30 (Dulcolax Supp) 10 mg DAILY PRN [place] 03/30/16 19:30 (Tylenol) 650 mg Q6H PRN PO 03/30/16 19:30 03/31/16 14:08 ([place] 5-325 Mg) 1 tab Q4H PRN PO 03/30/16 19:30 03/31/16 10:41 (Flagyl) 500 mg Q8HR PO 03/30/16 22:00 04/05/16 13:59 (Dilaudid Pf Inj) 1 mg Q3H PRN IV 03/31/16 10:30 04/01/16 10:05 ([place] 10-325 Mg) 1 tab Q4H PRN PO 03/31/16 10:30 04/03/16 22:46 (VANCOMYCIN for oral use only) 125 mg QID PO 03/31/16 18:00 04/05/16 13:59 (Xarelto) 20 mg DAILY PO 04/01/16 11:00 04/05/16 10:05 (Neurontin) 300 mg TID PO 04/01/16 11:15 04/05/16 13:59 (Coreg) 3.125 mg Q12HR PO 04/02/16 12:15 04/05/16 10:05 (Prinivil) 10 mg DAILY PO 04/02/16 12:15 04/05/16 10:05 (Folate) 1 mg DAILY PO 04/02/16 12:15 04/05/16 10:05 (Effexor Xr) 150 mg DAILY PO 04/02/16 12:15 04/05/16 10:06 (Lanoxin) 0.125 mg DAILY PO 04/02/16 12:15 04/05/16 10:06 (Pravachol) 40 mg HS PO 04/02/16 21:00 04/04/16 21:23 (Ambien) 10 mg HS PRN PO 04/02/16 12:15 04/04/16 21:33 (Lioresal) 10 mg Q8HR PRN PO 04/02/16 12:15 (OxyCONTIN CR) 20 mg Q12HR PO 04/02/16 21:00 04/05/16 10:06 (Serevent Diskus Inh) 50 mcg BID INH 04/02/16 21:00 04/05/16 10:08 (Vasotec Inj) 1.25 mg Q6H PRN IV PUSH 04/02/16 16:15 (Oscal) 500 mg Q12HR PO 04/04/16 14:00 04/05/16 10:05 (K-Phos) 1,000 mg Q12HR PO 04/04/16 14:00 04/05/16 10:05 A/P Problem List: (1) Sepsis ICD Code: A41.9 Status: Acute (2) PNA (pneumonia) ICD Code: J18.9 Status: Acute (3) C. difficile colitis ICD Code: A04.7 Status: Resolved (4) Muscular deconditioning ICD Code: R29.898 Status: Acute (5) Renal insufficiency ICD Code: N28.9 Status: Acute (6) Renal cell carcinoma ICD Code: C64.9 Status: Chronic (7) DM (diabetes mellitus) ICD Code: E11.9 Status: Chronic (8) CLL (chronic lymphocytic leukemia) ICD Code: C91.10 Status: Acute Assessment and Plan Sepsis HR 105, WBC 46 although underlying CLL. Source is likely post-obstructive PNA, C diff. S/p Rocephin/Zithro. ID consult appreciated. Blood cultures with no growth, final. - continue Vanc/ Zosyn as well as by mouth vancomycin per ID. PNA CXR w/ new left pleural effusion and consolidation of left lung base with faint nodularity and left lung possibly metastatic disease. Known h/o renal cell carcinoma w/ pulmonary mets. - Continue IV antibiotics as above. - DuoNeb, O2 nasal cannula when necessary. - Recheck chest x-ray in AM. C Diff colitis S/p diagnosis during recent admit in [place], currently on Flagyl and vanco PO. C Diff antigen positive, persistent infection despite improved diarrhea. Repeat C. difficile negative. - Continue Flagyl PO add by mouth vancomycin as patient has been on treatment for C. difficile more than a month on Flagyl. Deconditioning Likely multifactorial: CLL, renal cell w/ mets, PNA, C Diff. Improved. - PT/ OT for eval and treatment. Recommend rehab, but pt wants to go home. - Pt reluctant to discuss hospice on admission. He says he does not want resuscitation. Code status is DNR. - encourage PO intake. Renal cell carcinoma/ CLL With pulmonary mets. Ex- notes imaging in [place] positive for "brain tumor", no records available at this time. CT and MRI brain without evidence of mets. CT of the abdomen and pelvis done showed 3.9 cm mesenteric mass root of mesentery on the left not imaged previously. - oncology following. Cleared for discharge. - As per recommendation hold chemotherapy drug Votrient. - treatment of infections as above. - compare imaging with imaging done in [place]. Atrial fibrillation The pt was evaluated by cardiology on last admission and a pacemaker was recommended. 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 Rate controlled 04/04. - continue Xarelto and Coreg. - telemetry. Anemia Per oncology recommendation blood transfusion 2. Hemoccult positive. - Monitor H&H. Hemoglobin stable 04/05. - GI consult pending. - Continue Xarelto for now. Hypophosphatemia Likely s/t C diff. - KPhos. Monitor. DVT Prophylaxis: Xarelto. Discharge Planning D/c to SNF vs home with C when cleared by ID. Ziyad Arias DO Apr 05, 2016 16:32
--- NOTE | 2016-04-05 16:37 | PD.CONS ---
HPI History of Present Illness This is a 66 year old male who is currently hospitalized for sepsis, pneumonia, recent C. difficile colitis, deconditioning, renal insufficiency, diabetes, renal cell carcinoma, chronic lymphocytic leukemia. GI has been consulted for anemia with Hemoccult-positive stool. The patient reports that he was diagnosed with leukemia about 3 years ago. Shortly after he was diagnosed with renal cell carcinoma and reports that he underwent a nephrectomy. Back in June/ July he was seen in [place] and found to have progression of his metastatic renal cell carcinoma with a new development of metastasis to the lung and the pleural effusion. During that time he was also treated for C. difficile colitis. He travels back and forth between [place] and [place]. He was seen by Dr. Choi back in February and at that time he was having diarrhea again and was noted to have recurrent C. difficile colitis. He was given Flagyl and had a good response to this. He was restarted on Votrient for his metastatic disease. Here in the hospital he was evaluated by ID and treated for questionable post obstructive pneumonia. He completed a course of Zosyn and IV Vanco and is currently receiving oral vancomycin to complete his C. difficile course of antibiotics. He is not having any diarrhea. He has been anemic and noted his stool came back Hemoccult positive. GI was consulted for further evaluation of this. The patient reports that he has not seen any obvious GI bleeding. He denies any GI symptoms such as nausea, vomiting, decreased appetite, weight loss, abdominal pain, current diarrhea or constipation, black stools, or red blood in his stools. Initially denied any abdominal pain or reflux, however, he does have a bottle of Latoya-Braidwood at his bedside. When questioned further about this he reports that he occasionally gets an upset stomach depending on what he eats. He states that this is very rare, and usually only occurs about once or twice a month. He does report that he had some heartburn after his dinner yesterday. He denies any history of peptic ulcer disease. He has never had an EGD. He does report that he had a colonoscopy about a year ago and he had a polyp removed. This was done in [place]. He does have atrial fibrillation and takes Xarelto for this. Discussed with patient evaluation of Hemoccult-positive stool and anemia with EGD/colonoscopy in the patient reports that he absolutely does not want have a colonoscopy and does not feel this is necessary since he just had one about a year ago and it was negative other than a polyp. Discussed possible evaluation with EGD alone, given the fact that he has never had one and that he is having some heartburn and "upset stomach" requiring the use of Latoya-Braidwood. He reports that he does not wish to have either an EGD or colonoscopy. (Zelda Mcginnis) PFSH Past Medical History Chronic lymphocytic leukemia Atrial fibrillation Hx PE on Xarelto Metastatic renal cell carcinoma with disease to the lung. Coronary artery disease COPD C. difficile colitis 2 Diabetes History of pleural effusion Colon polyp CHF Hx liver injury after starting chemotherapy in [place] Past Surgical History Vasectomy Left Nephrectomy 2013 Chest tube 2 Colonoscopy Bone Marrow Biopsy (Zelda Mcginnis) Coded Allergies: Morphine (Unverified Adverse Reaction, Severe, VOMITING, 03/30/16) Medications Allergies Coded Allergies Type Severity Reaction Last Updated Verified Morphine Adverse Reaction Severe VOMITING 03/30/16 No Active Scripts Medications Dose Route/Sig Days Date Category Family History Reports both mother and brother had a heart attack No family history of esophageal, gastric, colorectal cancer Social History 97 alcohol, tobacco, illicit drug use (Zelda Mcginnis) Review of Systems Constitutional: COMPLAINS OF: Fatigue, DENIES: Fever, Weight loss, Chills, Change in appetite Respiratory: DENIES: Cough Cardiovascular: DENIES: Chest pain Gastrointestinal: COMPLAINS OF: Abdominal pain (dyspepsia), Diarrhea (recent not currently having), Heartburn, DENIES: Black stools, Bloody stools, Constipation, Nausea, Vomiting, Anorexia, Swelling of Abdomen, Hematemesis Musculoskeletal: DENIES: Muscle aches Integumentary: DENIES: Abnormal pigmentation Hematologic/lymphatic: DENIES: Bruising Immunologic/allergic: DENIES: Eczema Neurologic: DENIES: Headache Psychiatric: DENIES: Confusion (Zelda Mcginnis) GI Exam Vitals I&O Vital Signs Date Time Temp Pulse Resp B/P Pulse Ox O2 Delivery O2 Flow Rate FiO2 04/05/16 08:00 97.1 89 18 133/74 96 04/05/16 08:00 Room Air 04/05/16 03:39 97.6 92 18 145/84 96 04/04/16 23:12 98.5 90 18 129/82 96 04/04/16 20:57 97.4 82 18 164/82 95 04/04/16 20:03 75 04/04/16 20:00 Room Air I/O 04/04/16 04/04/16 04/04/16 04/05/16 04/05/16 04/05/16 07:00 15:00 23:00 07:00 15:00 23:00 Intake Total 2058 ml 480 ml 1756 ml 1134 ml Output Total 200 ml 550 ml Balance 2058 ml 480 ml 1556 ml 584 ml Intake Oral 480 ml 720 ml 480 ml IV Total 2058 ml 1036 ml 654 ml Output Urine Total 200 ml 550 ml # Voids 1 # Bowel Movements 1 1 1 Imaging Last Impressions Chest CT 03/31/16 0000 Signed Impressions: Service Date/Time: Thursday, March 31, 2016 09:02 - CONCLUSION: 1. Increasing pleural changes on the left. 2. Decreasing pleural and parenchymal changes on the right. Braeden Edward MD FACR Brain MRI 03/31/16 0000 Signed Impressions: Service Date/Time: Thursday, March 31, 2016 09:22 - CONCLUSION: I do not see evidence for metastatic disease, however, moderate motion artifact is present on the post contrast images. Subtle meningeal disease could be missed. Braeden Edward MD FACR Abdomen/Pelvis CT 03/31/16 0000 Signed Impressions: Service Date/Time: Thursday, March 31, 2016 09:02 - CONCLUSION: 3.9 cm mesenteric mass root of mesentery on the left not imaged previously. I have no recent films for comparison. Braeden Edward MD FACR Chest X-Ray 03/30/16 1629 Signed Impressions: Service Date/Time: March 16:32 - CONCLUSION: 1. New left pleural effusion with consolidation the left lung base. The findings could indicate pneumonia which may be postobstructive given the history of lung cancer. 2. Faint nodularity in the left lung which could represent metastatic disease. Ziyad Lyon MD Head CT 03/30/16 0000 Signed Impressions: Service Date/Time: March 18:14 - CONCLUSION: Normal examination. Bill Branch MD Cervical Spine CT 03/30/16 0000 Signed Impressions: Service Date/Time: March 18:14 - CONCLUSION: 1. No acute findings. Mild spinal stenosis in the lower cervical spine Bill Branch MD Laboratory Test 04/04/16 04/05/16 23:45 10:15 Stool C. difficile Toxin (PCR) NEGATIVE Stl C. difficile Toxin PRESUMPTIVE Epiderm 027 NEGATIVE White Blood Count 32.2 TH/MM3 Red Blood Count 2.22 MIL/MM3 Hemoglobin 8.4 GM/DL Hematocrit 25.6 % Mean Corpuscular Volume 115.2 FL Mean Corpuscular Hemoglobin 37.8 PG Mean Corpuscular Hemoglobin 32.8 % Concent Red Cell Distribution Width 31.1 % Platelet Count 95 TH/MM3 Mean Platelet Volume 11.7 FL Sodium Level 142 MEQ/L Potassium Level 4.4 MEQ/L Chloride Level 111 MEQ/L Carbon Dioxide Level 24.1 MEQ/L Anion Gap 7 MEQ/L Blood Urea Nitrogen 12 MG/DL Creatinine 0.72 MG/DL Estimat Glomerular Filtration 110 ML/MIN Rate Random Glucose 113 MG/DL Calcium Level 6.9 MG/DL Protein Corrected Calcium 8.3 MG/DL Phosphorus Level 1.6 MG/DL Magnesium Level 1.6 MG/DL Total Protein 4.5 GM/DL Date/Time Procedure Status Source Growth 04/04/16 23:45 Stool Occult Blood (SARAH) - Final Complete Stool Stool HEMOCCULT POSITIVE Physical Examination HEENT: Normocephalic; atraumatic; no jaundice. CHEST: CTA CARDIAC: RRR ABDOMEN: Soft, nondistended, nontender; no hepatosplenomegaly; bowel sounds are present in all four quadrants. EXTREMITIES: Mild BLE edema. SKIN: Generalized pallor PROGRAMMING MANAGER: No focal deficits; alert and oriented times three. (Zelda Mcginnis) Assessment and Plan Plan ASSESSMENT: - Hemoccult (+) Stool. Pt has not seen any GI blood loss. He initially denied GI symptoms, but after further questioning of his Latoya-Braidwood at the bedside he states that he does have heartburn and upset stomach occasionally, based on the food that he eats. He typically will have this once or twice a month. He is completing tx for CDiff, no longer having diarrhea. Last colonoscopy 1 year ago in [place], states normal other than polyp. D/W patient possible evaluation with egd/colonoscopy. States he absolutely does not want to have egd/colonoscopy or egd alone. - Anemia, likely multifactorial. Like some anemia of chronic disease, perhaps aggravated by medication, but does have hemoccult positive stool. Refusing endoscopic workup. - GERD, Dyspepsia. Never had EGD. Refusing EGD. Add PPI. - Recent recurrent C Diff. Completing course of oral vancomycin per ID recommendations. Having formed stool - Leukocytosis. WBC 32.2. - Mild elevation of LFT. T. Bili 0.9, AST 40, ALT 23, ALk Phosph 162 on 03/31, likely related to dz process/medication - Sepsis, PNA, S/P IV Vanco, Zosyn per ID - Metastatic RCC. Votrient on hold - Chronic lymphocytic leukemia. Per oncology - Atrial fibrillation and hx PE. On Xarelto - Deconditioning. PT PLAN: - [facility] - Add Protonix 40mg po daily - Cont. Oral Vanco per ID recommendations - Monitor HH - Transfuse as necessary - Pt refusing both EGD and Colonoscopy - Supportive care - Further recommendations to follow based on results of above - Pt seen and examined by Dr. Jefferson and myself and this note is written on her behalf (Zelda Mcginnis) Physician Comments seen, examined agree with above await records if dc fu office (Tiana Jefferson MD) Zelda Mcginnis Apr 05, 2016 16:37 Tiana Jefferson MD Apr 05, 2016 17:40
[2016-04-05] MEDS ORDERED: POTASSIUM PHOSPHATE INJ 30 MMOL in SODIUM CHLOR 0.9% 250 ML INJ 250 ML IV ONE (18:00)
[2016-04-05] MEDS: PANTOPRAZOLE SODIUM 40 MG VIAL IV PUSH SCH (18:02)
[2016-04-05] MEDS: PRAVASTATIN SOD 40 MG TAB PO SCH (20:38)
[2016-04-05] MEDS: ZOLPIDEM TARTRATE 10 MG TAB PO PRN (20:52)
[2016-04-06 00:17] VITALS: BP 132/77; PULSE 87; RESP 18; TEMP 97.7; O2SAT 95
[2016-04-06] MEDS: SODIUM CHLOR 0.9% 1000 ML INJ 1,000 ML IV SCH ×2 (02:00→12:16)
[2016-04-06 04:55] VITALS: BP 142/85; PULSE 86; RESP 18; TEMP 97.1; O2SAT 97
[2016-04-06] MEDS: metroNIDAZOLE 500 MG TAB PO SCH ×3 (05:48→20:55)
--- NOTE | 2016-04-06 06:04 | RADRPT ---
EXAM DATE/TIME: 04/06/2016 05:07 [facility] COMPARISON: CHEST SINGLE AP, March 30, 2016, 16:32. INDICATIONS : Rule out pneumonia. MEDICAL HISTORY : Leukemia. Carcinoma, lung. Carcinoma, renal cell. SURGICAL HISTORY : None. ENCOUNTER: Subsequent ACUITY: 4 - 6 days PAIN SCORE: 0/10 LOCATION: Bilateral chest FINDINGS: The cardiac silhouette is enlarged in transverse diameter. There is left lower lobe atelectasis versu s pneumonia. A large left sided effusion is present. The right lung is free of acute parenchymal opac ity. CONCLUSION: 1. Cardiomegaly 2. Left lower lobe atelectasis versus pneumonia. 3. Increasing left effusion Jamal Gillespie MD on April 06, 2016 at 6:02 Board Certified Radiologist. This report was verified electronically.
--- NOTE | 2016-04-06 07:39 | PD.ONC.PN ---
Subjective Subjective Remarks No diarrhea. No abdominal pain. No GI bleeding. Wanted to go home. Objective Data Date Time Temp Pulse Resp B/P Pulse Ox O2 Delivery O2 Flow Rate FiO2 04/06/16 04:55 97.1 86 18 142/85 97 04/06/16 00:17 97.7 87 18 132/77 95 04/05/16 20:30 98.7 90 16 158/80 98 04/05/16 20:00 80 04/05/16 20:00 Room Air 04/05/16 16:20 72 17 139/82 04/05/16 16:00 97.4 76 18 140/85 97 04/05/16 12:00 97.7 99 18 143/84 95 04/05/16 08:00 97.1 89 18 133/74 96 04/05/16 08:00 83 04/05/16 08:00 Room Air 04/06/16 04/06/16 04/06/16 07:00 15:00 23:00 Intake Total 1453 ml Output Total 300 ml Balance 1153 ml Result Diagram: 04/05/16 1015 04/05/16 1015 Laboratory Results Laboratory Tests Test 04/05/16 10:15 White Blood Count 32.2 TH/MM3 Red Blood Count 2.22 MIL/MM3 Hemoglobin 8.4 GM/DL Hematocrit 25.6 % Mean Corpuscular Volume 115.2 FL Mean Corpuscular Hemoglobin 37.8 PG Mean Corpuscular Hemoglobin 32.8 % Concent Red Cell Distribution Width 31.1 % Platelet Count 95 TH/MM3 Mean Platelet Volume 11.7 FL Sodium Level 142 MEQ/L Potassium Level 4.4 MEQ/L Chloride Level 111 MEQ/L Carbon Dioxide Level 24.1 MEQ/L Anion Gap 7 MEQ/L Blood Urea Nitrogen 12 MG/DL Creatinine 0.72 MG/DL Estimat Glomerular Filtration 110 ML/MIN Rate Random Glucose 113 MG/DL Calcium Level 6.9 MG/DL Protein Corrected Calcium 8.3 MG/DL Phosphorus Level 1.6 MG/DL Magnesium Level 1.6 MG/DL Total Protein 4.5 GM/DL Culture Results Microbiology Date/Time Procedure Status Source Growth 04/04/16 23:45 Stool Occult Blood (SARAH) - Final Complete Stool Stool HEMOCCULT POSITIVE Imaging Studies Last 24 hours Impressions Chest X-Ray 04/06/16 0600 Signed Impressions: Service Date/Time: March 05:07 - CONCLUSION: 1. Cardiomegaly 2. Left lower lobe atelectasis versus pneumonia. 3. Increasing left effusion Jamal Gillespie MD Administered Medications Medications (Trade) Dose Ordered Sig/Asia Route PRN Reason Start Time Stop Time Status Last Admin Dose Admin Sodium Chloride (NS 1000 ml Inj) 1,000 ml @ 100 mls/hr Q10H IV 03/30/16 20:00 04/06/16 02:00 IV Flush (NS Flush) 2 ml BID FLUSH 03/30/16 21:00 04/04/16 21:25 Acetaminophen (Tylenol) 650 mg Q6H PRN PO FEVER/PAIN SCALE 1 TO 2 03/30/16 19:30 03/31/16 14:08 Acetaminophen/ Hydrocodone Bitart ([place] 5-325 Mg) 1 tab Q4H PRN PO PAIN SCALE 3 TO 5 03/30/16 19:30 03/31/16 10:41 Metronidazole (Flagyl) 500 mg Q8HR PO 03/30/16 22:00 04/06/16 05:48 Hydromorphone HCl (Dilaudid Pf Inj) 1 mg Q3H PRN IV Breakthrough pain 03/31/16 10:30 04/01/16 10:05 Acetaminophen/ Hydrocodone Bitart ([place] 10-325 Mg) 1 tab Q4H PRN PO pain 6-10 03/31/16 10:30 04/03/16 22:46 Vancomycin HCl (VANCOMYCIN for oral use only) 125 mg QID PO 03/31/16 18:00 04/05/16 20:39 Rivaroxaban (Xarelto) 20 mg DAILY PO 04/01/16 11:00 04/05/16 10:05 Gabapentin (Neurontin) 300 mg TID PO 04/01/16 11:15 04/05/16 18:02 Carvedilol (Coreg) 3.125 mg Q12HR PO 04/02/16 12:15 04/05/16 20:38 Lisinopril (Prinivil) 10 mg DAILY PO 04/02/16 12:15 04/05/16 10:05 Folic Acid (Folate) 1 mg DAILY PO 04/02/16 12:15 04/05/16 10:05 Venlafaxine HCl (Effexor Xr) 150 mg DAILY PO 04/02/16 12:15 04/05/16 10:06 Digoxin (Lanoxin) 0.125 mg DAILY PO 04/02/16 12:15 04/05/16 10:06 Pravastatin Sodium (Pravachol) 40 mg HS PO 04/02/16 21:00 04/05/16 20:38 Zolpidem Tartrate (Ambien) 10 mg HS PRN PO insomnia 04/02/16 12:15 04/05/16 20:52 Oxycodone HCl (OxyCONTIN CR) 20 mg Q12HR PO 04/02/16 21:00 04/05/16 20:38 Salmeterol Xinafoate (Serevent Diskus Inh) 50 mcg BID INH 04/02/16 21:00 04/05/16 20:44 Calcium Carbonate (Oscal) 500 mg Q12HR PO 04/04/16 14:00 04/05/16 20:38 Pantoprazole Sodium (Protonix Inj) 40 mg Q24H IV PUSH 04/05/16 17:00 04/05/16 18:02 Objective Remarks GENERAL: Well-nourished, well-developed patient. SKIN: Warm and dry. HEAD: Normocephalic. EYES: No scleral icterus. No injection or drainage. NECK: Supple, trachea midline. No JVD or lymphadenopathy. LYMPHATIC: No adenopathy. CARDIOVASCULAR: Regular rate and rhythm without murmurs. RESPIRATORY: Breath sounds equal bilaterally. No accessory muscle use. GASTROINTESTINAL: Abdomen soft, non-tender, nondistended. EXTREMITIES: No cyanosis, trace BLE edema. MUSCULOSKELETAL: Adequate muscle tone. NEUROLOGICAL: No obvious focal deficit. Awake, alert, and oriented x3. PSYCHIATRIC: Appropriate mood and affect; insight and judgment normal. Assessment/Plan Problem List: (1) Renal cell carcinoma Status: Chronic Plan: --Votrient on hold for now--patient is having records faxed from [place] History --history of metastatic renal cell carcinoma with metastasis to the lung. --first diagnosed in 2012, s/p left nephrectomy. + metastatic lung lesion. started on Sutent then stopped d/t side effects. --then started on Turicel, but developed progression of disease --started on Votrient in October 2014. developed liver failure and CHF, dose was reduced. --2016: Votrient temporarily put on hold after developing significant anemia and possible pneumonitis. --was in [place] for the summer, found to have progression of metastatic renal cell carcinoma with new development of malignant and pleural effusion. restarted on Votrient --admitted to the hospital for C-difficile colitis. 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 --last week, his diarrhea had resolved and he restarted taking the Votrient last week. --two days prior to admission, suddenly became very weak. --CT showed a 3.2 cm right kidney complex cyst which has been stable. (2) Chronic lymphocytic leukemia Status: Chronic Plan: --Currently under observation. --WBC stable --has anemia and mild thrombocytopenia, but that may be due to Votrient rather than the chronic lymphocytic leukemia. Blood counts are stable. (3) Leukocytosis Status: Chronic Plan: --likely d/t CLL --ID following and on empiric abx --BC no growth x 3 days --Chest x-ray showed a new left pleural effusion with consolidation in the left lung base which could be pneumonia but I think it is most likely due to mets renal cell cancer. --does not have significant shortness of breath or cough. (4) Weakness Status: Acute Plan: --Improve. Now able to ambulate. --started two days prior to admission --likely due to Votrient which is now on hold. (5) Macrocytic anemia Status: Acute Plan: --Stool OB positive but pt refused EGD/Colonoscopy. --chronic and is likely a combination of Votrient, as well as CLL. --recent w/u for hemolysis was unremarkable. (6) C. difficile colitis Status: Resolved Plan: -- Cdiff toxin clear on 04/04/16. --on PO Vanco + Flagyl (7) PE (pulmonary embolism) Status: Chronic Plan: --on Xarelto. --no new pulmonary symptoms. Assessment 66y/o male with h/o metastatic renal cell carcinoma admitted with weakness and fatigue Metastatic renal cell carcinoma Chronic lymphocytic leukemia C-difficile colitis Pulmonary embolism in 2013 current on Xarelto Coronary disease Chronic obstructive pulmonary disease Diabetes mellitus Anemia Anxiety Osteoarthritis Peripheral neuropathy from diabetes. Plan 1. Patint declined EGD/Colonoscopy 2. Can be d/c once clear by ID. 3. Followup in one week with Dr. Corral. 4. Supportive care. Waqas Corral MD Apr 06, 2016 07:39
[2016-04-06 08:00] VITALS: BP 150/78; PULSE 102; PULSE 80; RESP 18; TEMP 97.6; O2SAT 95
[2016-04-06] MEDS: CARVEDILOL 3.125 MG TAB PO SCH ×2 (08:02→20:55)
[2016-04-06] MEDS: DIGOXIN 0.125 MG TAB PO SCH (08:02)
[2016-04-06] MEDS: VENLAFAXINE HCL XR 75 MG CAP PO SCH (08:02)
[2016-04-06] MEDS: LISINOPRIL 10 MG TAB PO SCH (08:03)
[2016-04-06] MEDS: SALMETEROL XINAFOATE 50 MCG DISKUS INH SCH ×2 (08:03→20:58)
[2016-04-06] MEDS: CALCIUM CARBONATE 1.25 GM (CA 500 MG) TAB PO SCH ×2 (08:03→20:55)
[2016-04-06] MEDS: oxyCODONE HCL 20 MG CONTROLLED RELEASE TAB PO SCH ×2 (08:03→20:55)
[2016-04-06] MEDS: RIVAROXABAN 20 MG TAB PO SCH (08:03)
[2016-04-06] MEDS: FOLIC ACID 1 MG TAB PO SCH (08:03)
[2016-04-06] MEDS: VANCOMYCIN 500 MG VIAL (FOR ORAL USE ONLY) PO SCH ×4 (08:03→20:55)
[2016-04-06] MEDS: GABAPENTIN 300 MG CAP PO SCH ×3 (08:03→17:46)
[2016-04-06] MEDS: SODIUM CHLORIDE 0.9% FLUSH 5 ML FLUSH FLUSH SCH ×2 (08:04→20:55)
[2016-04-06 09:56] LABS: HEMATOCRIT 24.6 % (39.0-51.0); MEAN CELL VOLUME 116.2 FL (80.0-100.0); MEAN CORPUSCULAR HEMOGLOBIN 37.8 PG (27.0-34.0); MEAN CORPUSCULAR HGB CONC 32.5 % (32.0-36.0); PLATELET COUNT 99 TH/MM3 (150-450); RED BLOOD COUNT 2.12 MIL/MM3 (4.50-5.90); RED CELL DISTRIBUTION WIDTH 30.9 % (11.6-17.2); WHITE BLOOD COUNT 31.6 TH/MM3 (4.0-11.0)
[2016-04-06 10:02] LABS: HEMO FLAGS AUTO DIFF
[2016-04-06 10:47] LABS: BICARBONATE 23.6 MEQ/L (21.0-32.0); MAGNESIUM 1.5 MG/DL (1.5-2.5); POTASSIUM 4.7 MEQ/L (3.5-5.1)
[2016-04-06 11:04] LABS: CALCIUM-PROTEIN CORRECTED 8.2 MG/DL (8.5-10.1)
[2016-04-06 11:44] LABS: NEUTROPHIL # MANUAL DIFF 0.6 TH/MM3 (1.8-7.7); POLYS (SEG NEUTROPHILS) 2 % (16-70); SCAN/DIFF FINAL DIFF MANUAL; WBC DIFF SAMPLE 100
[2016-04-06 11:46] LABS: PLATELET ESTIMATE SMEAR LOW (NORMAL); PLATELET MORPHOLOGY ENLARGED (NORMAL); SMUDGE CELLS PRESENT PRESENT
[2016-04-06 11:48] LABS: SPHEROCYTES OCC (NORMAL)
[2016-04-06 12:00] VITALS: BP 151/78; PULSE 78; RESP 18; TEMP 98.4; O2SAT 97
--- NOTE | 2016-04-06 13:41 | HHI.PR ---
Subjective Remarks The patient wanted to go home. His is at the bedside. He said that he had swelling in his lower extremities. He said he is breathing comfortably. He said he was feeling strong and ambulating well. Discussed with nursing. Objective Vitals Vital Signs Date Time Temp Pulse Resp B/P Pulse Ox O2 Delivery O2 Flow Rate FiO2 04/06/16 04:55 97.1 86 18 142/85 97 04/06/16 00:17 97.7 87 18 132/77 95 04/05/16 20:30 98.7 90 16 158/80 98 04/05/16 20:00 80 04/05/16 20:00 Room Air 04/05/16 16:20 72 17 139/82 04/05/16 16:00 97.4 76 18 140/85 97 I/O 04/05/16 04/05/16 04/05/16 04/06/16 04/06/16 04/06/16 07:00 15:00 23:00 07:00 15:00 23:00 Intake Total 1134 ml 2422 ml 720 ml 1453 ml Output Total 550 ml 300 ml 250 ml 300 ml Balance 584 ml 2122 ml 470 ml 1153 ml Intake Oral 480 ml 960 ml 720 ml 240 ml IV Total 654 ml 1462 ml 1213 ml Output Urine Total 550 ml 300 ml 250 ml 300 ml # Bowel Movements 1 1 0 Result Diagram: 04/06/16 0920 04/06/16 0920 Imaging Last Impressions Chest X-Ray 04/06/16 0600 Signed Impressions: Service Date/Time: March 05:07 - CONCLUSION: 1. Cardiomegaly 2. Left lower lobe atelectasis versus pneumonia. 3. Increasing left effusion Jamal Gillespie MD Chest CT 03/31/16 0000 Signed Impressions: Service Date/Time: Thursday, March 31, 2016 09:02 - CONCLUSION: 1. Increasing pleural changes on the left. 2. Decreasing pleural and parenchymal changes on the right. Braeden Edward MD FACR Brain MRI 03/31/16 0000 Signed Impressions: Service Date/Time: Thursday, March 31, 2016 09:22 - CONCLUSION: I do not see evidence for metastatic disease, however, moderate motion artifact is present on the post contrast images. Subtle meningeal disease could be missed. Braeden Edward MD FACR Abdomen/Pelvis CT 03/31/16 0000 Signed Impressions: Service Date/Time: Thursday, March 31, 2016 09:02 - CONCLUSION: 3.9 cm mesenteric mass root of mesentery on the left not imaged previously. I have no recent films for comparison. Braeden Edward MD FACR Head CT 03/30/16 0000 Signed Impressions: Service Date/Time: March 18:14 - CONCLUSION: Normal examination. Bill Branch MD Cervical Spine CT 03/30/16 0000 Signed Impressions: Service Date/Time: March 18:14 - CONCLUSION: 1. No acute findings. Mild spinal stenosis in the lower cervical spine Bill Branch MD Objective Remarks GENERAL: Well-developed patient, in no apparent distress. SKIN: Multiple tattoos. HEENT: Normocephalic. Pupils equal round and reactive. Nose without bleeding. Airway patent. NECK: Trachea midline. No JVD. Supple. CARDIOVASCULAR: Regular rate and rhythm without murmurs, gallops, or rubs. RESPIRATORY: Crackles at the bases. GASTROINTESTINAL: Abdomen soft, non-tender, nondistended. Bowel Sounds normoactive x4. MUSCULOSKELETAL: Extremities without clubbing, cyanosis, 2+ bilateral lower extremity edema. NEUROLOGICAL: Awake and alert. Oriented x 3. Right lower extremity with 4 out of 5 strength, left lower extremity with 4 out of 5 strength. Arm strength symmetrical. Normal speech. PSYCH: Mood and affect appropriate. Medications and IVs Current Medications Medications (Trade) Dose Ordered Sig/Asia Route Start Time Stop Time Status Last Admin (NS Flush) 2 ml UNSCH PRN FLUSH 03/30/16 19:30 (NS Flush) 2 ml BID FLUSH 03/30/16 21:00 04/06/16 08:04 (Zofran Inj) 4 mg Q6H PRN IVP 03/30/16 19:30 (Dulcolax Supp) 10 mg DAILY PRN [place] 03/30/16 19:30 (Tylenol) 650 mg Q6H PRN PO 03/30/16 19:30 03/31/16 14:08 ([place] 5-325 Mg) 1 tab Q4H PRN PO 03/30/16 19:30 03/31/16 10:41 (Flagyl) 500 mg Q8HR PO 03/30/16 22:00 04/06/16 12:16 (Dilaudid Pf Inj) 1 mg Q3H PRN IV 03/31/16 10:30 04/01/16 10:05 ([place] 10-325 Mg) 1 tab Q4H PRN PO 03/31/16 10:30 04/03/16 22:46 (VANCOMYCIN for oral use only) 125 mg QID PO 03/31/16 18:00 04/06/16 12:16 (Xarelto) 20 mg DAILY PO 04/01/16 11:00 04/06/16 08:03 (Neurontin) 300 mg TID PO 04/01/16 11:15 04/06/16 12:16 (Coreg) 3.125 mg Q12HR PO 04/02/16 12:15 04/06/16 08:02 (Prinivil) 10 mg DAILY PO 04/02/16 12:15 04/06/16 08:03 (Folate) 1 mg DAILY PO 04/02/16 12:15 04/06/16 08:03 (Effexor Xr) 150 mg DAILY PO 04/02/16 12:15 04/06/16 08:02 (Lanoxin) 0.125 mg DAILY PO 04/02/16 12:15 04/06/16 08:02 (Pravachol) 40 mg HS PO 04/02/16 21:00 04/05/16 20:38 (Ambien) 10 mg HS PRN PO 04/02/16 12:15 04/05/16 20:52 (Lioresal) 10 mg Q8HR PRN PO 04/02/16 12:15 (OxyCONTIN CR) 20 mg Q12HR PO 04/02/16 21:00 04/06/16 08:03 (Serevent Diskus Inh) 50 mcg BID INH 04/02/16 21:00 04/06/16 08:03 (Vasotec Inj) 1.25 mg Q6H PRN IV PUSH 04/02/16 16:15 (Oscal) 500 mg Q12HR PO 04/04/16 14:00 04/06/16 08:03 Pantoprazole Sodium 40 mg 40 mg Q24H IV PUSH 04/05/16 17:00 04/05/16 18:02 Potassium Phosphate 30 mmol/ Sodium Chloride 260 ml @ 43.333 mls/ hr ONCE ONCE IV 04/06/16 15:00 04/06/16 20:59 (Magnesium Sulfate 1 Gm Premix) 100 ml @ 100 mls/hr Q1H IV 04/06/16 14:00 04/06/16 15:59 (Lasix Inj) 40 mg ONCE ONCE IV PUSH 04/06/16 14:00 04/06/16 14:01 A/P Problem List: (1) Sepsis ICD Code: A41.9 Status: Acute (2) PNA (pneumonia) ICD Code: J18.9 Status: Acute (3) C. difficile colitis ICD Code: A04.7 Status: Resolved (4) Muscular deconditioning ICD Code: R29.898 Status: Acute (5) Renal insufficiency ICD Code: N28.9 Status: Acute (6) Renal cell carcinoma ICD Code: C64.9 Status: Chronic (7) DM (diabetes mellitus) ICD Code: E11.9 Status: Chronic (8) CLL (chronic lymphocytic leukemia) ICD Code: C91.10 Status: Acute Assessment and Plan Sepsis HR 105, WBC 46 although underlying CLL. Source is likely post-obstructive PNA, C diff. S/p Rocephin/Zithro. ID consult appreciated. Blood cultures with no growth, final. - continue vancomycin as well as by mouth vancomycin per ID. Zosyn has been discontinued. PNA CXR w/ new left pleural effusion and consolidation of left lung base with faint nodularity and left lung possibly metastatic disease. Known h/o renal cell carcinoma w/ pulmonary mets. Repeat CXR 04/06 with increased left effusion, consolidation vs. ATX. - Continue antibiotics. - DuoNeb, O2 nasal cannula when necessary. C Diff colitis S/p diagnosis during recent admit in [place], currently on Flagyl and vanco PO. C Diff antigen positive, persistent infection despite improved diarrhea. Repeat C. difficile negative. - Continue Flagyl PO add by mouth vancomycin as patient has been on treatment for C. difficile more than a month on Flagyl. Chronic systolic CHF The pt has a low EF and now has edema in the LEs. - d/c IVFs and start Lasix. - ambulation. - continue cardiac regimen. Deconditioning Likely multifactorial: CLL, renal cell w/ mets, PNA, C Diff. Improved. - PT/ OT for eval and treatment. Recommend rehab, but pt wants to go home. - Pt reluctant to discuss hospice on admission. He says he does not want resuscitation. Code status is DNR. - encourage PO intake. - diuresis. Renal cell carcinoma/ CLL With pulmonary mets. Ex- notes imaging in [place] positive for "brain tumor", no records available at this time. CT and MRI brain without evidence of mets. CT of the abdomen and pelvis done showed 3.9 cm mesenteric mass root of mesentery on the left not imaged previously. - oncology following. Cleared for discharge. - As per recommendation hold chemotherapy drug Votrient. - treatment of infections as above. - compare imaging with imaging done in [place]. Atrial fibrillation The pt was evaluated by cardiology on last admission and a pacemaker was recommended. 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 Rate controlled 04/06. - continue Xarelto and Coreg. - telemetry. Anemia Per oncology recommendation blood transfusion 2. Hemoccult positive. - Monitor H&H. Hemoglobin stable 04/06. - GI consult appreciated. Pt prefers outpt work-up. - Continue Xarelto for now. Hypophosphatemia Likely s/t C diff. - KPhos. Monitor. DVT Prophylaxis: Xarelto. Discharge Planning D/c to SNF vs home with HHC in 1-2 days. Ziyad Arias DO Apr 06, 2016 13:41
[2016-04-06] MEDS ORDERED: PHARMACY ORDERED LAB XX ONE (13:45)
[2016-04-06] MEDS: MAGNESIUM SULFATE 1 GM PREMIX 100 ML IV SCH ×2 (13:47→14:55)
[2016-04-06] MEDS ORDERED: FUROSEMIDE 40 MG/4 ML VIAL IV PUSH ONE (14:00)
[2016-04-06] MEDS ORDERED: POTASSIUM PHOSPHATE INJ 30 MMOL in SODIUM CHLOR 0.9% 250 ML INJ 250 ML IV ONE (15:00)
[2016-04-06 16:00] VITALS: BP 128/73; PULSE 65; RESP 18; TEMP 97.6; O2SAT 98
[2016-04-06] MEDS: PANTOPRAZOLE SODIUM 40 MG VIAL IV PUSH SCH (17:46)
--- NOTE | 2016-04-06 18:22 | HHI.GIFU ---
Subjective Remarks Resting in bed. Hoping to go home tomorrow. States he would like to have procedures done as outpatient and will follow up once discharged. Objective Vitals I&O Vital Signs Date Time Temp Pulse Resp B/P Pulse Ox O2 Delivery O2 Flow Rate FiO2 04/06/16 12:00 98.4 78 18 151/78 97 04/06/16 08:00 97.6 102 18 150/78 95 04/06/16 08:00 Room Air 04/06/16 04:55 97.1 86 18 142/85 97 04/06/16 00:17 97.7 87 18 132/77 95 04/05/16 20:30 98.7 90 16 158/80 98 04/05/16 20:00 80 04/05/16 20:00 Room Air I/O 04/05/16 04/05/16 04/05/16 04/06/16 04/06/16 04/06/16 07:00 15:00 23:00 07:00 15:00 23:00 Intake Total 1134 ml 2422 ml 720 ml 1453 ml 480 ml Output Total 550 ml 300 ml 250 ml 300 ml 375 ml Balance 584 ml 2122 ml 470 ml 1153 ml 105 ml Intake Oral 480 ml 960 ml 720 ml 240 ml 480 ml IV Total 654 ml 1462 ml 1213 ml Output Urine Total 550 ml 300 ml 250 ml 300 ml 375 ml # Bowel Movements 1 1 0 0 Laboratory Laboratory Tests Test 04/06/16 09:20 White Blood Count 31.6 Red Blood Count 2.12 Hemoglobin 8.0 Hematocrit 24.6 Mean Corpuscular Volume 116.2 Mean Corpuscular Hemoglobin 37.8 Mean Corpuscular Hemoglobin 32.5 Concent Red Cell Distribution Width 30.9 Platelet Count 99 Mean Platelet Volume 11.8 Neutrophils (%) (Auto) Lymphocytes (%) (Auto) Monocytes (%) (Auto) Eosinophils (%) (Auto) Basophils (%) (Auto) Neutrophils # (Auto) Lymphocytes # (Auto) Monocytes # (Auto) Eosinophils # (Auto) Basophils # (Auto) CBC Comment AUTO DIFF Differential Total Cells 100 Counted Neutrophils % (Manual) 2 Lymphocytes % 94 Monocytes % 4 Neutrophils # (Manual) 0.6 Differential Comment FINAL DIFF MANUAL Smudge Cells PRESENT Platelet Estimate LOW Platelet Morphology Comment ENLARGED Spherocytes OCC Sodium Level 142 Potassium Level 4.7 Chloride Level 113 Carbon Dioxide Level 23.6 Anion Gap 5 Blood Urea Nitrogen 9 Creatinine 0.72 Estimat Glomerular Filtration 110 Rate Random Glucose 140 Calcium Level 6.8 Protein Corrected Calcium 8.2 Phosphorus Level 1.4 Magnesium Level 1.5 Total Protein 4.4 Date/Time Procedure Status Source Growth 04/04/16 23:45 Stool Occult Blood (SARAH) - Final Complete Stool Stool HEMOCCULT POSITIVE Imaging Last Impressions Chest X-Ray 04/06/16 0600 Signed Impressions: Service Date/Time: March 05:07 - CONCLUSION: 1. Cardiomegaly 2. Left lower lobe atelectasis versus pneumonia. 3. Increasing left effusion Jamal Gillespie MD Chest CT 03/31/16 0000 Signed Impressions: Service Date/Time: Thursday, March 31, 2016 09:02 - CONCLUSION: 1. Increasing pleural changes on the left. 2. Decreasing pleural and parenchymal changes on the right. Braeden Edward MD FACR Brain MRI 03/31/16 0000 Signed Impressions: Service Date/Time: Thursday, March 31, 2016 09:22 - CONCLUSION: I do not see evidence for metastatic disease, however, moderate motion artifact is present on the post contrast images. Subtle meningeal disease could be missed. Braeden Edward MD FACR Abdomen/Pelvis CT 03/31/16 0000 Signed Impressions: Service Date/Time: Thursday, March 31, 2016 09:02 - CONCLUSION: 3.9 cm mesenteric mass root of mesentery on the left not imaged previously. I have no recent films for comparison. Braeden Edward MD FACR Head CT 03/30/16 0000 Signed Impressions: Service Date/Time: March 18:14 - CONCLUSION: Normal examination. Bill Branch MD Cervical Spine CT 03/30/16 0000 Signed Impressions: Service Date/Time: March 18:14 - CONCLUSION: 1. No acute findings. Mild spinal stenosis in the lower cervical spine Bill Branch MD Physical Exam HEENT: Normocephalic; atraumatic; no jaundice. CHEST: CTA CARDIAC: RRR ABDOMEN: Soft, nondistended, nontender; no hepatosplenomegaly; bowel sounds are present in all four quadrants. EXTREMITIES: Mild BLE edema. 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 Pt has not seen any GI blood loss. He initially denied GI symptoms, but after further questioning of his Latoya-Louise at the bedside he states that he does have heartburn and upset stomach occasionally, based on the food that he eats. He typically will have this once or twice a month. He is completing tx for CDiff, no longer having diarrhea. Last colonoscopy 1 year ago in [place], states normal other than polyp. D/W patient possible evaluation with egd/colonoscopy. States he absolutely does not want to have egd/colonoscopy or egd alone. - Anemia, likely multifactorial. Like some anemia of chronic disease, perhaps aggravated by medication, but does have hemoccult positive stool. Refusing endoscopic workup. - GERD, Dyspepsia. Never had EGD. Refusing EGD. Add PPI. - Recent recurrent C Diff. Completing course of oral vancomycin per ID recommendations. Having formed stool - Leukocytosis. WBC 31.6 - Mild elevation of LFT. T. Bili 0.9, AST 40, ALT 23, ALk Phosph 162 on 03/31, likely related to dz process/medication - Sepsis, PNA, S/P IV Vanco, Zosyn per ID - Metastatic RCC. Votrient on hold - Chronic lymphocytic leukemia. Per oncology - Atrial fibrillation and hx PE. On Xarelto - Deconditioning. PT PLAN: - EDSON - Protonix 40mg po daily - Cont. Oral Vanco per ID recommendations - Monitor HH - Transfuse as necessary - Pt would like to have EGD/Colonoscopy as outpatient - FU LISSET at discharge - GI will sign off, please reconsult as needed - Pt seen and examined by Dr. Jefferson and myself and this note is written on her behalf Zelda Mcginnis Apr 06, 2016 18:21
[2016-04-06 20:00] VITALS: BP 153/81; PULSE 84; RESP 20; TEMP 98.6; O2SAT 94
[2016-04-06] MEDS: PRAVASTATIN SOD 40 MG TAB PO SCH (20:55)
[2016-04-06] MEDS: ZOLPIDEM TARTRATE 10 MG TAB PO PRN (20:55)
[2016-04-07] VITALS: BP 127/72; PULSE 88; RESP 20; TEMP 97.8; O2SAT 96
[2016-04-07 04:00] VITALS: BP 156/93; PULSE 85; RESP 20; TEMP 97.7; O2SAT 95
[2016-04-07] MEDS: metroNIDAZOLE 500 MG TAB PO SCH ×2 (05:47→13:16)
[2016-04-07 08:00] VITALS: BP 137/73; PULSE 109; PULSE 89; RESP 20; TEMP 97.5; O2SAT 96
[2016-04-07 08:59] LABS: HEMATOCRIT 27.9 % (39.0-51.0); MEAN CORPUSCULAR HEMOGLOBIN 37.1 PG (27.0-34.0); MEAN CORPUSCULAR HGB CONC 31.7 % (32.0-36.0); PLATELET COUNT 122 TH/MM3 (150-450); RED BLOOD COUNT 2.39 MIL/MM3 (4.50-5.90); WHITE BLOOD COUNT 46.4 TH/MM3 (4.0-11.0)
[2016-04-07] MEDS ORDERED: FUROSEMIDE 40 MG/4 ML VIAL IV PUSH SCH (09:00)
[2016-04-07 09:18] LABS: MAGNESIUM 1.9 MG/DL (1.5-2.5); POTASSIUM 5.1 MEQ/L (3.5-5.1)
[2016-04-07] MEDS: CALCIUM CARBONATE 1.25 GM (CA 500 MG) TAB PO SCH (09:31)
[2016-04-07] MEDS: VENLAFAXINE HCL XR 75 MG CAP PO SCH (09:31)
[2016-04-07] MEDS: LISINOPRIL 10 MG TAB PO SCH (09:31)
[2016-04-07] MEDS: oxyCODONE HCL 20 MG CONTROLLED RELEASE TAB PO SCH (09:31)
[2016-04-07] MEDS: RIVAROXABAN 20 MG TAB PO SCH (09:31)
[2016-04-07] MEDS: CARVEDILOL 3.125 MG TAB PO SCH (09:31)
[2016-04-07] MEDS: VANCOMYCIN 500 MG VIAL (FOR ORAL USE ONLY) PO SCH ×2 (09:31→13:16)
[2016-04-07] MEDS: DIGOXIN 0.125 MG TAB PO SCH (09:31)
[2016-04-07] MEDS: GABAPENTIN 300 MG CAP PO SCH ×2 (09:31→13:16)
[2016-04-07] MEDS: FOLIC ACID 1 MG TAB PO SCH (09:31)
[2016-04-07] MEDS: SALMETEROL XINAFOATE 50 MCG DISKUS INH SCH (09:32)
[2016-04-07] MEDS: SODIUM CHLORIDE 0.9% FLUSH 5 ML FLUSH FLUSH SCH (09:32)
[2016-04-07 09:34] LABS: CALCIUM-PROTEIN CORRECTED 8.4 MG/DL (8.5-10.1)
--- NOTE | 2016-04-07 10:04 | PD.ONC.PN ---
Subjective Subjective Remarks Afebrile overnight. Patient eager to go home. He walked around his room this AM and had a BM. Objective Data Date Time Temp Pulse Resp B/P Pulse Ox O2 Delivery O2 Flow Rate FiO2 04/07/16 08:00 97.5 89 20 137/73 96 04/07/16 04:00 97.7 85 20 156/93 95 04/07/16 00:00 97.8 88 20 127/72 96 04/06/16 20:00 Room Air 04/06/16 20:00 98.6 84 20 153/81 94 04/06/16 16:00 97.6 65 18 128/73 98 04/06/16 12:00 98.4 78 18 151/78 97 04/07/16 04/07/16 04/07/16 07:00 15:00 23:00 Intake Total 1800 ml Output Total 500 ml Balance 1300 ml Result Diagram: 04/07/16 0805 04/07/16 0805 Laboratory Results Laboratory Tests Test 04/07/16 08:05 White Blood Count 46.4 TH/MM3 Red Blood Count 2.39 MIL/MM3 Hemoglobin 8.9 GM/DL Hematocrit 27.9 % Mean Corpuscular Volume 117.0 FL Mean Corpuscular Hemoglobin 37.1 PG Mean Corpuscular Hemoglobin 31.7 % Concent Red Cell Distribution Width 31.0 % Platelet Count 122 TH/MM3 Mean Platelet Volume 11.6 FL Sodium Level 140 MEQ/L Potassium Level 5.1 MEQ/L Chloride Level 108 MEQ/L Carbon Dioxide Level 26.0 MEQ/L Anion Gap 6 MEQ/L Blood Urea Nitrogen 9 MG/DL Creatinine 0.73 MG/DL Estimat Glomerular Filtration 108 ML/MIN Rate Random Glucose 88 MG/DL Calcium Level 7.4 MG/DL Protein Corrected Calcium 8.4 MG/DL Phosphorus Level 1.5 MG/DL Magnesium Level 1.9 MG/DL Total Protein 5.3 GM/DL Culture Results Microbiology Date/Time Procedure Status Source Growth 04/04/16 23:45 Stool Occult Blood (SARAH) - Final Complete Stool Stool HEMOCCULT POSITIVE Administered Medications Medications (Trade) Dose Ordered Sig/Asia Route PRN Reason Start Time Stop Time Status Last Admin Dose Admin IV Flush (NS Flush) 2 ml BID FLUSH 03/30/16 21:00 04/07/16 09:32 Acetaminophen (Tylenol) 650 mg Q6H PRN PO FEVER/PAIN SCALE 1 TO 2 03/30/16 19:30 03/31/16 14:08 Acetaminophen/ Hydrocodone Bitart ([place] 5-325 Mg) 1 tab Q4H PRN PO PAIN SCALE 3 TO 5 03/30/16 19:30 03/31/16 10:41 Metronidazole (Flagyl) 500 mg Q8HR PO 03/30/16 22:00 04/07/16 05:47 Hydromorphone HCl (Dilaudid Pf Inj) 1 mg Q3H PRN IV Breakthrough pain 03/31/16 10:30 04/01/16 10:05 Acetaminophen/ Hydrocodone Bitart ([place] 10-325 Mg) 1 tab Q4H PRN PO pain 6-10 03/31/16 10:30 04/03/16 22:46 Vancomycin HCl (VANCOMYCIN for oral use only) 125 mg QID PO 03/31/16 18:00 04/07/16 09:31 Rivaroxaban (Xarelto) 20 mg DAILY PO 04/01/16 11:00 04/07/16 09:31 Gabapentin (Neurontin) 300 mg TID PO 04/01/16 11:15 04/07/16 09:31 Carvedilol (Coreg) 3.125 mg Q12HR PO 04/02/16 12:15 04/07/16 09:31 Lisinopril (Prinivil) 10 mg DAILY PO 04/02/16 12:15 04/07/16 09:31 Folic Acid (Folate) 1 mg DAILY PO 04/02/16 12:15 04/07/16 09:31 Venlafaxine HCl (Effexor Xr) 150 mg DAILY PO 04/02/16 12:15 04/07/16 09:31 Digoxin (Lanoxin) 0.125 mg DAILY PO 04/02/16 12:15 04/07/16 09:31 Pravastatin Sodium (Pravachol) 40 mg HS PO 04/02/16 21:00 04/06/16 20:55 Zolpidem Tartrate (Ambien) 10 mg HS PRN PO insomnia 04/02/16 12:15 04/06/16 20:55 Oxycodone HCl (OxyCONTIN CR) 20 mg Q12HR PO 04/02/16 21:00 04/07/16 09:31 Salmeterol Xinafoate (Serevent Diskus Inh) 50 mcg BID INH 04/02/16 21:00 04/07/16 09:32 Calcium Carbonate (Oscal) 500 mg Q12HR PO 04/04/16 14:00 04/07/16 09:31 Pantoprazole Sodium (Protonix Inj) 40 mg Q24H IV PUSH 04/05/16 17:00 04/06/16 17:46 Furosemide (Lasix Inj) 40 mg DAILY IV PUSH 04/07/16 09:00 04/07/16 09:32 Objective Remarks GENERAL: Middle aged male, sitting up in bed in [facility]. SKIN: Warm and dry. HEAD: Normocephalic. EYES: No injection or drainage. NECK: Supple, trachea midline. CARDIOVASCULAR: +S1/S2 RESPIRATORY: Breath sounds equal bilaterally. No accessory muscle use. GASTROINTESTINAL: Abdomen soft, non-tender, nondistended. EXTREMITIES: No cyanosis. bilateral 1+ LE edema. NEUROLOGICAL: awake and alert, normal speech. Assessment/Plan Problem List: (1) Renal cell carcinoma Status: Chronic Plan: --Votrient on hold for now History --history of metastatic renal cell carcinoma with metastasis to the lung. --first diagnosed in 2012, s/p left nephrectomy. + metastatic lung lesion. started on Sutent then stopped d/t side effects. --then started on Turicel, but developed progression of disease --started on Votrient in October 2014. developed liver failure and CHF, dose was reduced. --2016: Votrient temporarily put on hold after developing significant anemia and possible pneumonitis. --was in [place] for the summer, found to have progression of metastatic renal cell carcinoma with new development of malignant and pleural effusion. restarted on Votrient --admitted to the hospital for C-difficile colitis. 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 --last week, his diarrhea had resolved and he restarted taking the Votrient last week. --two days prior to admission, suddenly became very weak. --CT showed a 3.2 cm right kidney complex cyst which has been stable. (2) Chronic lymphocytic leukemia Status: Chronic Plan: --Currently under observation. --has anemia and mild thrombocytopenia, but that may be due to Votrient rather than the chronic lymphocytic leukemia. Blood counts are stable. (3) Leukocytosis Status: Chronic Plan: --likely d/t CLL --ID following and on empiric abx --BC no growth x 3 days --Chest x-ray showed a new left pleural effusion with consolidation in the left lung base which could be pneumonia but is most likely due to mets renal cell cancer. --does not have significant shortness of breath or cough. (4) Weakness Status: Acute Plan: --Improved since admission. --likely due to Votrient which is now on hold. (5) Macrocytic anemia Status: Acute Plan: --Stool OB positive but pt refused EGD/Colonoscopy. --chronic and is likely a combination of Votrient, as well as CLL. --recent w/u for hemolysis was unremarkable. (6) C. difficile colitis Status: Resolved Plan: -- Cdiff toxin clear on 04/04/16. --on PO Vanco + Flagyl (7) PE (pulmonary embolism) Status: Chronic Plan: --on Xarelto. --no new pulmonary symptoms. Assessment 66y/o male with h/o metastatic renal cell carcinoma admitted with weakness and fatigue Metastatic renal cell carcinoma Chronic lymphocytic leukemia C-difficile colitis Pulmonary embolism in 2013 current on Xarelto Coronary disease Chronic obstructive pulmonary disease Diabetes mellitus Anemia Anxiety Osteoarthritis Peripheral neuropathy from diabetes. Plan 1. clear for discharge 2. follow up with Dr. Corral within a week--has appointment Attending Statement The exam, history, and the medical decision-making described in the above note were completed with the assistance of the mid-level provider. I reviewed and agree with the findings presented. I attest that I had a [id number] encounter with the patient on the same day, and personally performed and documented my assessment and findings in the medical record. Continue to improved. No symptoms and transfusion not indicated at this time. Continue to hold Votrient. F/u oncology clinic. Can be d/c from oncology standpoint. Isabella Kruse Apr 07, 2016 10:04 Waqas Corral MD Apr 07, 2016 15:41
--- NOTE | 2016-04-07 15:20 | HHI.DCPOC ---
Discharge Care Plan Diagnosis: (1) Lower extremity edema (2) C. difficile colitis (3) Weakness (4) Renal cell carcinoma (5) Chronic lymphocytic leukemia (6) PNA (pneumonia) (7) Renal insufficiency Goals to Promote Your Health * To prevent worsening of your condition and complications * To maintain your health at the optimal level Directions to Meet Your Goals Take your medications as prescribed Follow your dietary instruction Follow activity as directed Keep your appointments as scheduled Take your immunizations and boosters as scheduled If your symptoms worsen call your PCP, if no PCP go to Urgent Care Center or Emergency Room Smoking is Dangerous to Your Health. Avoid second hand smoke Call the 24-hour hour crisis hotline for domestic abuse at Ziyad Arias DO Apr 07, 2016 15:20
[2016-04-07] MEDS ORDERED: HYDR-3516 PO (15:29)
[2016-04-07] MEDS ORDERED: DIGO0.12 PO (15:29)
[2016-04-07] MEDS ORDERED: VENL75XR PO (15:29)
[2016-04-07] MEDS ORDERED: SALM50I INH (15:29)
[2016-04-07] MEDS ORDERED: FURO1TAB60 PO (15:29)
[2016-04-07] MEDS ORDERED: CARV3.125 PO (15:29)
[2016-04-07] MEDS ORDERED: FOLI1TAB4 PO (15:29)
[2016-04-07] MEDS ORDERED: PRAV40TA PO (15:29)
[2016-04-07] MEDS ORDERED: OYST500T11 PO (15:29)
[2016-04-07] MEDS ORDERED: KPHOS250 PO (15:29)
[2016-04-07] MEDS ORDERED: NEUR300C PO (15:29)
[2016-04-07] MEDS ORDERED: VANC125C3 PO (15:29)
[2016-04-07] MEDS ORDERED: LISI10TA3 PO (15:29)
[2016-04-07] MEDS ORDERED: OXYC20TA17 PO (15:29)
[2016-04-07] MEDS ORDERED: XARE20TA PO (15:30)
--- NOTE | 2016-04-07 15:38 | HHI.DS ---
Discharge Summary Admission Date Mar 30, 2016 at 19:23 Discharge Date: Apr 07, 2016 Admitting Diagnosis pneumonia, a [employer], malignancy (1) Sepsis ICD Code: A41.9 Diagnosis: Principal (2) PNA (pneumonia) ICD Code: J18.9 (3) C. difficile colitis ICD Code: A04.7 Diagnosis: Principal (4) Muscular deconditioning ICD Code: R29.898 (5) Renal insufficiency ICD Code: N28.9 (6) Renal cell carcinoma ICD Code: C64.9 (7) CLL (chronic lymphocytic leukemia) ICD Code: C91.10 Procedures None Brief History - From Admission This is a 65-year-old male with a PMH of CLL, h/o PE on Xarelto, Renal Cell CA w / Pulmonary Mets, s/p Left Nephrectomy, CAD, COPD, C Diff Colitis and DM who was brought to the ER by Ex- secondary to profound weakness x2 days. Per pt and Ex- he had been up in [place] where he resides half of the year, was hospitalized and diagnosed w/ C Diff Colitis and sent to Rehab facility. Per Ex- pt wasn't happy at Rehab facility and had friend drive him back down to [facility]. Ex- checks up on him and today was unable to stand him up due to weakness. Follows w/ Dr. Corral, currently on Chemotherapy for Renal Cell CA. On arrival, BP 112/64, HR 105, O2 sat 94% on RA, Afebrile. W WBC 46.3, previously 48.3 on 03/28/16. Creatinine 1.35, previously 1.50 on 03/28/16. UA with trace LE and mild bacteriuria. CXR with new left pleural effusion and consolidation of left lung base, possibly pneumonia versus postobstructive, faint nodularity left lung which could represent metastatic disease. CT Head with no acute findings. CT Neck with no acute findings. Per Ex-, pt told he had a "brain tumor" up in [place]. S/p Rocephin/Zithro in ER. CBC/BMP: 04/07/16 0805 04/07/16 0805 Significant Findings Laboratory Tests Test 04/05/16 04/06/16 04/07/16 10:15 09:20 08:05 White Blood Count 32.2 TH/MM3 31.6 TH/MM3 46.4 TH/MM3 (4.0-11.0) (4.0-11.0) (4.0-11.0) Red Blood Count 2.22 MIL/MM3 2.12 MIL/MM3 2.39 MIL/MM3 (4.50-5.90) (4.50-5.90) (4.50-5.90) Hemoglobin 8.4 GM/DL 8.0 GM/DL 8.9 GM/DL (13.0-17.0) (13.0-17.0) (13.0-17.0) Hematocrit 25.6 % 24.6 % 27.9 % (39.0-51.0) (39.0-51.0) (39.0-51.0) Mean Corpuscular Volume 115.2 FL 116.2 FL 117.0 FL (80.0-100.0) (80.0-100.0) (80.0-100.0) Mean Corpuscular Hemoglobin 37.8 PG 37.8 PG 37.1 PG (27.0-34.0) (27.0-34.0) (27.0-34.0) Red Cell Distribution Width 31.1 % 30.9 % 31.0 % (11.6-17.2) (11.6-17.2) (11.6-17.2) Platelet Count 95 TH/MM3 99 TH/MM3 122 TH/MM3 (150-450) (150-450) (150-450) Mean Platelet Volume 11.7 FL 11.8 FL 11.6 FL (7.0-11.0) (7.0-11.0) (7.0-11.0) Chloride Level 111 MEQ/L 113 MEQ/L 108 MEQ/L (98-107) (98-107) (98-107) Random Glucose 113 MG/DL 140 MG/DL (74-106) (74-106) Calcium Level 6.9 MG/DL 6.8 MG/DL 7.4 MG/DL (8.5-10.1) (8.5-10.1) (8.5-10.1) Protein Corrected Calcium 8.3 MG/DL 8.2 MG/DL 8.4 MG/DL (8.5-10.1) (8.5-10.1) (8.5-10.1) Phosphorus Level 1.6 MG/DL 1.4 MG/DL 1.5 MG/DL (2.5-4.9) (2.5-4.9) (2.5-4.9) Total Protein 4.5 GM/DL 4.4 GM/DL 5.3 GM/DL (6.4-8.2) (6.4-8.2) (6.4-8.2) Neutrophils % (Manual) 2 % (16-70) Lymphocytes % 94 % (9-44) Neutrophils # (Manual) 0.6 TH/MM3 (1.8-7.7) Platelet Estimate LOW (NORMAL) Platelet Morphology Comment ENLARGED (NORMAL) Mean Corpuscular Hemoglobin 31.7 % Concent (32.0-36.0) Imaging Last Impressions Chest X-Ray 04/06/16 0600 Signed Impressions: Service Date/Time: March 05:07 - CONCLUSION: 1. Cardiomegaly 2. Left lower lobe atelectasis versus pneumonia. 3. Increasing left effusion Jamal Gillespie MD Chest CT 03/31/16 0000 Signed Impressions: Service Date/Time: Thursday, March 31, 2016 09:02 - CONCLUSION: 1. Increasing pleural changes on the left. 2. Decreasing pleural and parenchymal changes on the right. Braeden Edward MD FACR Brain MRI 03/31/16 0000 Signed Impressions: Service Date/Time: Thursday, March 31, 2016 09:22 - CONCLUSION: I do not see evidence for metastatic disease, however, moderate motion artifact is present on the post contrast images. Subtle meningeal disease could be missed. Braeden Edward MD FACR Abdomen/Pelvis CT 03/31/16 0000 Signed Impressions: Service Date/Time: Thursday, March 31, 2016 09:02 - CONCLUSION: 3.9 cm mesenteric mass root of mesentery on the left not imaged previously. I have no recent films for comparison. Braeden Edward MD FACR Head CT 03/30/16 0000 Signed Impressions: Service Date/Time: March 18:14 - CONCLUSION: Normal examination. Bill Branch MD Cervical Spine CT 03/30/16 0000 Signed Impressions: Service Date/Time: March 18:14 - CONCLUSION: 1. No acute findings. Mild spinal stenosis in the lower cervical spine Bill Branch MD PE at Discharge GENERAL: Well-developed patient, in no apparent distress. SKIN: Multiple tattoos. HEENT: Normocephalic. Pupils equal round and reactive. Nose without bleeding. Airway patent. NECK: Trachea midline. No JVD. Supple. CARDIOVASCULAR: Regular rate and rhythm without murmurs, gallops, or rubs. RESPIRATORY: Crackles at the bases. GASTROINTESTINAL: Abdomen soft, non-tender, nondistended. Bowel Sounds normoactive x4. MUSCULOSKELETAL: Extremities without clubbing, cyanosis, 2+ bilateral lower extremity edema. NEUROLOGICAL: Awake and alert. Oriented x 3. Right lower extremity with 4 out of 5 strength, left lower extremity with 4 out of 5 strength. Arm strength symmetrical. Normal speech. PSYCH: Mood and affect appropriate. Pt update on day of discharge The patient was anxious to go home. He said he felt fine. He wanted to make sure he could get the prescriptions prior to leaving. He said he worked with physical therapy and did well. No acute complaints at this time. Hospital Course Sepsis HR 105, WBC 46 although underlying CLL, found to have PNA and C diff. S/p Rocephin/Zithro in the emergency department. He was started on vancomycin and Zosyn. Blood cultures were negative. ID was consulted. He will continue PO vancomycin upon discharge. PNA CXR w/ new left pleural effusion and consolidation of left lung base with faint nodularity and left lung possibly metastatic disease. Known h/o renal cell carcinoma w/ pulmonary mets. Repeat CXR 04/06 with increased left effusion, consolidation vs. ATX. He completed a course of IV antibiotics. He received DuoNebs and O2 by nasal cannula when necessary. He was started on Lasix. C Diff colitis S/p diagnosis during recent admit in [place], currently on Flagyl and vanco PO. Repeat C. difficile negative. He will complete a course of PO vancomycin. Chronic systolic CHF The pt has a low EF and has edema in the LEs along with a left pleural effusion. We d/c IVFs and started Lasix. He will continue Lasix upon discharge. He was continued on his cardiac regimen. He worked with physical therapy and occupational therapy. Renal cell carcinoma/ CLL With pulmonary mets. CT and MRI brain without evidence of mets. CT of the abdomen and pelvis done showed 3.9 cm mesenteric mass root of mesentery on the left not imaged previously. Oncology was consulted. As per recommendation we held chemotherapy drug Votrient. He received 2 units of red blood cells per oncology. He will follow up with oncology as an outpt. Atrial fibrillation The pt was evaluated by cardiology on last admission and a pacemaker was recommended. 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 He was continued on Xarelto and Coreg. He was monitored on telemetry. He will follow up with cardiology as an outpt. Anemia Per oncology recommendation blood transfusion 2. Hemoccult positive. GI was consulted but the pt wanted an outpt work-up. He will continue Xarelto and have a CBC followed as an outpt. He will follow up with GI and oncology as an outpt. Hypophosphatemia The pt will be discharged on supplementation. He will have a BMP and phos checked in 3-5 days. Pt Condition on Discharge: Stable Discharge Disposition: Discharge Home Discharge Time: > 30 minutes Discharge Instructions DIET: Follow Instructions for: Heart Healthy Diet Activities you can perform: Weight Bearing as Kristin Follow up Referrals: Cardiology - 2 Weeks Gastroenterology - 1 Week with Tiana Jefferson MD Oncology - [address] Corral PCP Follow-up - 1 Week New Orders: BASIC METABOLIC PROF - 3-5 Days CBC WITH DIFF - 3-5 Days PHOSPHORUS (PO4) - 3-5 Days Physical Therapy - 2-3 Days New Medications: Furosemide (Lasix) 40 Mg Tab 40 MG PO DAILY Edema #30 Ref 0 TAB Potassium Phosphate-Sodium Phosphate (K-Phos Neutral) [id number] Mg Tab 250 MG PO PCHS Electrolyte Replacement #28 Ref 0 TAB Vancomycin (Vancomycin) 125 Mg Cap 125 MG PO QID Infection #24 Ref 0 CAP Carvedilol (Coreg) 3.125 Mg Tab 3.125 MG PO Q12HR Blood Pressure Management #60 TAB Digoxin (Digoxin) 0.125 Mg Tab 0.125 MG PO DAILY Heart #30 TAB Folic Acid (Folate) 1 Mg Tab 1 MG PO DAILY Vitamin #30 TAB Gabapentin (Neurontin) 300 Mg Cap 300 MG PO TID Neuropathy #90 CAP Hydrocodone-Acetaminophen (Hydrocodone-Acetaminophen) 5-325 mg Tab 1 TAB PO Q4H PRN pain #14 TAB Lisinopril (Lisinopril) 10 Mg Tab 10 MG PO DAILY Blood Pressure Management #30 TAB Oxycodone ER (Oxycontin) 20 Mg Tab 20 MG PO Q12HR Pain Management #10 TAB Oyster Shell (Oyster Shell Calcium) 500 Mg Tab 500 MG PO Q12HR Calcium #60 TAB Pravastatin (Pravachol) 40 Mg Tab 40 MG PO HS Cholesterol Management #30 TAB Rivaroxaban (Xarelto) 20 Mg Tab 20 MG PO DAILY PE #30 TAB Salmeterol Inh (Serevent Diskus Inh) 50 Mcg/Act Aero 50 MCG INH BID Broncospasm #1 INHALER Venlafaxine ER 24 HR (Effexor XR 24 HR) 75 Mg Cap 150 MG PO DAILY Depression Control #30 CAP Ziyad Arias DO Apr 07, 2016 15:38
[2016-04-07] MEDS ORDERED: SODIUM PHOSPHATE INJ 30 MMOL in SODIUM CHLOR 0.9% 250 ML INJ 250 ML IV ONE (16:00)
[2016-04-14] MEDS ORDERED: OXYB5TAB10 PO (10:01)
[2016-04-14] MEDS ORDERED: AMBI10TA PO (10:17)
[2016-05-10] MEDS ORDERED: CYCL7.5T33 PO (10:34)
[2016-05-16] MEDS ORDERED: BACL10TA PO (15:53)
== END 2016-04-07 17:43 | disposition home or self-care (01) | DRG 871 ==
LOC: NEPC 15:57 → NEDA 19:23 → N04A 23:57
PROVIDERS: ADMIT Hospitalist; ATTEND Hospitalist
PROC: 30233N1 Transfusion of Nonautologous Red Blood Cells into Peripheral Vein, Percutaneous Approach (ICD-10-PCS; principal; 2016-03-31)
DX: A41.9 Sepsis, unspecified organism (principal); J18.9 Pneumonia, unspecified organism; N17.9 Acute kidney failure, unspecified; J91.0 Malignant pleural effusion; C78.00 Secondary malignant neoplasm of unspecified lung; A04.7 Enterocolitis due to Clostridium difficile; E83.39 Other disorders of phosphorus metabolism; C91.10 Chronic lymphocytic leukemia of B-cell type not having achieved remission; I50.22 Chronic systolic (congestive) heart failure; E11.22 Type 2 diabetes mellitus with diabetic chronic kidney disease; D69.6 Thrombocytopenia, unspecified; N18.9 Chronic kidney disease, unspecified; M19.90 Unspecified osteoarthritis, unspecified site; I48.91 Unspecified atrial fibrillation; I12.9 Hypertensive chronic kidney disease with stage 1 through stage 4 chronic kidney disease, or unspecified chronic kidney disease; G47.30 Sleep apnea, unspecified; K44.9 Diaphragmatic hernia without obstruction or gangrene; K21.9 Gastro-esophageal reflux disease without esophagitis; E78.00 Pure hypercholesterolemia, unspecified; F41.9 Anxiety disorder, unspecified; F32.9 Major depressive disorder, single episode, unspecified; I25.10 Atherosclerotic heart disease of native coronary artery without angina pectoris; Z90.5 Acquired absence of kidney; Z86.711 Personal history of pulmonary embolism; Z79.02 Long term (current) use of antithrombotics/antiplatelets; E11.42 Type 2 diabetes mellitus with diabetic polyneuropathy; Z85.528 Personal history of other malignant neoplasm of kidney; D63.8 Anemia in other chronic diseases classified elsewhere; Z86.010 Personal history of colon polyps; Z66 Do not resuscitate; D75.89 Other specified diseases of blood and blood-forming organs; D53.9 Nutritional anemia, unspecified; N28.1 Cyst of kidney, acquired
CPT/HCPCS: 36415; 36430; 70470; 70553; 71010; 71250; 72125; 74176; 76937; 80048; 80053; 80202; 81001; 81256; 82272; 82607; 82728; 82746; 83010; 83540; 83550; 83615; 83735; 84100; 84155; 84443; 85007; 85027; 85044; 86850; 86880; 86900; 86901; 86920; 87040; 87493; 93005; 96365; 96375; A9579; C9113; J0456; J0610; J0692; J0696; J1170; J1940; J2543; J3370; J3475; J7030; J7040; J7050; P9016; Q9967

== ENCOUNTER 2016-05-01 06:28 | Day surgery (SDC) | payer MEDICARE, BC ==
[2016-05-01] VITALS (7 sets, daily range): BP systolic 145–171; BP diastolic 73–97; PULSE 70–96; RESP 20; TEMP 97.7–98.1; O2SAT 89–97
[~2016-05-01] VITALS: Ht 182.9 cm; Wt 100.5 kg
[~2016-05-01 06:28] MED LIST changes: +AMBI10TA PO; +DIGO0.12 PO; -EFFE150C PO; -FOLI1 PO; +FOLI1TAB4 PO; +FURO1TAB60 PO; +HYDR-3516 PO; +KPHOS250 PO; +LISI10TA3 PO; -LISI5 PO; +NEUR300C PO; -NORC10TA2 PO; -ONDA8 PO; -OXYB5TAB PO; +OXYB5TAB10 PO; -OXYC1TAB PO; +OXYC20TA17 PO; +OYST500T11 PO; +PRAV40TA PO; -RIVA20 PO; +SALM50I INH; -SPIR50TA21 PO; +VANC125C3 PO; +VENL75XR PO; +XARE20TA PO; -ZOLP10TA3 PO; -ZYRT10TA12 PO
[2016-05-01] MEDS ORDERED: SODIUM CHLORIDE 0.9% 1000 ML IV SCH (07:15)
[2016-05-01] MEDS ORDERED: CHLORHEXIDINE GLUCONATE 2 % 1 PACK (2 CLOTHS) TOPICAL SCH (07:15)
[2016-05-01] MEDS ORDERED: ceFAZolin 2 GM PREMIX 50 ML - implanted port/tunneled catheter insertion IV SCH (07:15)
[2016-05-01] MEDS ORDERED: VANCOMYCIN 1000 MG/NS 250 ML - implanted port/tunneled catheter IV SCH ×2 (07:15)
[2016-05-01] MEDS ORDERED: POVIDONE IODINE 5% (ANTISEPSIS KIT) 4 APPLICATIONS EACH NARE SCH (07:15)
[2016-05-01 07:52] LABS: APTT (PATIENT) 26.2 SEC (24.3-30.1); PROTHROMBIN TIME - PATIENT 10.6 SEC (9.8-11.6)
[2016-05-01] MEDS ORDERED: MIDAZOLAM HCL 5 MG/5 ML VIAL ONE (08:52)
[2016-05-01] MEDS ORDERED: fentaNYL CITRATE 250 MCG/5 ML AMP ONE (08:52)
[2016-05-01] MEDS ORDERED: LIDOCAINE 1%/EPINEPHrine 1:100,000 SOLN 20 ML VIAL ONE (09:05)
--- NOTE | 2016-05-01 10:11 | PD.RAD ---
Post Procedure Progress Note Pre Procedure Diagnosis: (1) CLL (chronic lymphocytic leukemia) Post Procedure Diagnosis: (1) CLL (chronic lymphocytic leukemia) Procedure Date: May 01, 2016 Supervising Radiologist: Joe Arthur JR Proceduralist/Assist: Meseret Mejia, RT(R)(), Bubba Jerez RT(R) Anesthesia: Conscious Sedation Plan of Activity Patient to Unit: ROPU Patient Condition: Good See PACS Report for procedural detail/treatment Central Venous Access Device Procedure 1 Right Internal Jugular Infusaport Placement single lumen [place]ian: 8 Findings: Port functions well. OK to use Plan F/U with IR in 10-14 days for a site check Jr. Arthur Thomas Justin MD May 01, 2016 10:11
[2016-05-01] MEDS ORDERED: SODIUM CHLORIDE 0.9% FLUSH 5 ML FLUSH IVF PRN (10:15)
--- NOTE | 2016-05-01 11:56 | RADRPT ---
EXAM DATE/TIME: 05/01/2016 09:16 [facility] COMPARISON: No previous studies available for comparison. INDICATIONS : Patient with a history of metastatic renal cell carcinoma. MEDICAL HISTORY : Anemia Anxiety Arthritis Blood clots Metastatic renal cell carcinoma Cardiovascular disease COPD Diabetes Erectile dysfunction Pneumonia SURGICAL HISTORY : Colonoscopy Vasectomy Bone marrow biopsy Left Nephrectomy ENCOUNTER: Initial ACUITY: >1 year PAIN SCORE: 7/10 LOCATION: All over [place] TIME: 0.4 minutes IMAGE SERIES: 1 SEDATION TIME: 60 minutes ACCESS: Right internal jugular vein SEDATION: 1.) 5 mg midazolam (Versed) IV 2.) 250 mcg fentanyl (Sublimaze) IV Prophylactic antibiotics were administered with appropriate pre-procedure timing. Vancomycin within 2 hours of procedure, Ancef (or alternative) within 1 hour of procedure. DEVICE: 1. 8 [place] single lumen Bard Power Port PROCEDURE : 1. Continuous pulse oximetry and EKG monitoring. 2. Intravenous conscious sedation. 3. Ultrasound guidance for venous access. 4. Fluoroscopic guided implantable central venous port placement. The patient was placed supine. The neck was prepped in sterile fashion. Full sterile technique was u sed, including cap, mask, sterile gloves and gown, and a large sterile sheet. Hand hygiene and 2% ch lorhexidine Betadine was utilized per protocol for cutaneous antisepsis with appropriate dry time for site. The skin and subcutaneous tissues were infiltrated with local anesthetic solution. Under direct ultrasound guidance, central venous access was accomplished in the targeted vessel. The ultrasound images depicting access guidance were stored and saved to PACS for permanent record. A s ubcutaneous pocket was created using blunt dissection. The port was introduced to the pocket. The c atheter tubing was fed through a subcutaneous tunnel to the venotomy site. The catheter tubing was c ut to a suitable length and then was introduced through a valved Peel-Away sheath and positioned with catheter tubing tip at the cavo-atrial junction level. The pocket incision was closed with subcutic ular Vicryl suture. Steri-Strips were applied. The port was flushed and locked with heparin solutio n per protocol. Sterile dressing was applied to the site. The patient tolerated the procedure well. Conscious sedation was performed with the prescribed dosages and duration as above in the presence of an independent trained radiology nurse to assist in the monitoring of the patient. EKG and oximetry remained stable throughout the procedure. The patient tolerated the procedure well and there were no complications. The patient was sent to post anesthesia recovery in stable condition. CONCLUSION: Uncomplicated ultrasound and fluoroscopic guided implanted central venous port catheter placement as described in detail above. An 8 [place]ib[place]ian Power port was placed. Joe Arthur Jr., MD on May 01, 2016 at 11:52 Board Certified Radiologist. This report was verified electronically.
[2016-05-10] MEDS ORDERED: CYCL7.5T33 PO (10:34)
[2016-05-16] MEDS ORDERED: BACL10TA PO (15:53)
== END 2016-05-01 12:00 | disposition home or self-care (01) ==
LOC: HROP 06:28 → HRIP 06:29 → HROP 12:00
PROVIDERS: ATTEND Internal Medicine Hematology & Oncology
DX: C79.02 Secondary malignant neoplasm of left kidney and renal pelvis (principal); C80.1 Malignant (primary) neoplasm, unspecified; C91.10 Chronic lymphocytic leukemia of B-cell type not having achieved remission; Z90.5 Acquired absence of kidney; F41.9 Anxiety disorder, unspecified; M19.90 Unspecified osteoarthritis, unspecified site; J44.9 Chronic obstructive pulmonary disease, unspecified; E11.9 Type 2 diabetes mellitus without complications; Z87.01 Personal history of pneumonia (recurrent)
CPT/HCPCS: 36561; 76937; 77001; 85610; 85730; 99152; 99153; C1788; J0690; J1642; J2250; J3010; J3370; J7030; J7050

== ENCOUNTER 2016-06-14 20:17 | Inpatient (IN) | payer MEDICARE, BC ==
[~2016-06-14] VITALS: Ht 182.9 cm; Wt 116.8 kg
[~2016-06-14 20:17] MED LIST changes: +BACL10TA PO; -FURO1TAB60 PO; -LISI10TA3 PO; -OXYC20TA17 PO
[2016-06-14 20:19] VITALS: BP 169/85; PULSE 86; RESP 20; TEMP 98.3; O2SAT 94
[2016-06-14 20:41] VITALS: BP 172/79; PULSE 68; RESP 28; O2SAT 94; O2SAT 95
--- NOTE | 2016-06-14 20:55 | PD ---
HPI Chief Complaint: Respiratory Symptoms Time Seen by Provider: 20:55 Travel History International Travel<30 days: No Contact w/Intl Traveler<30days: No Traveled to known affect area: No History of Present Illness HPI 66-year-old male came to the emergency room with progressive shortness of breath for past week and a half. No history of fever or chills. No history of cough. Patient came in saying that he thinks he has fluid in his lungs. He has history of pleural effusion that was drained almost a year ago in [place]. Patient also has history of leukemia and renal cell carcinoma with metastases. He is going through chemotherapy and his oncologist is Dr. Corral. Oxygen saturation was 94% on 2 L of oxygen via nasal cannula. Rest of the vital signs were stable. Patient is awake and answering questions appropriately. Shortness of breath is worsened on slight exertion. No history of chest pain. Patient has also noticed leg edema. His is here with him. PFSH Past Medical History Narrative Medical List of his past medical, surgical, social and family history was reviewed from the nursing note. Hx Anticoagulant Therapy: Yes (XARELTO) Anemia: Yes Arthritis: Yes Asthma: No Atrial Fibrillation: Yes Autoimmune Disease: No Blood Disorders: No Anxiety: Yes Depression: Yes Heart Rhythm Problems: Yes (AFIB) Cancer: Yes (KIDNEY AND LUNG CA) Cardiovascular Problems: Yes (CHF) High Cholesterol: Yes Chemotherapy: Yes (LEUKEMIA/ LEFT KIDNEY CA/ LUNG CA) Chest Pain: Yes Congestive Heart Failure: Yes COPD: No Cerebrovascular Accident: No Diabetes: Yes Patient Takes Glucophage: No Diminished Hearing: No Endocrine: Yes GERD: Yes Genitourinary: Yes (KIDNEY CANCER) Headaches: Yes Hiatal Hernia: Yes Hypertension: Yes Immune Disorder: No Implanted Vascular Access Dvce: No Kidney Stones: No Musculoskeletal: Yes Neurologic: Yes Psychiatric: Yes Reproductive: No Respiratory: Yes Immunizations Current: Yes Migraines: No Pneumonia: Yes (HX) Radiation Therapy: No Renal Failure: Yes Seizures: No Sickle Cell Disease: No Sleep Apnea: Yes Thyroid Disease: No Triglycerides - High: Yes Ulcer: No Influenza Vaccination: Yes Past Surgical History Abdominal Surgery: Yes (LEFT KIDNEY) AICD: No Arteriovenous Shunt: No Body Medical Devices: screws in back Cardiac Surgery: No Ear Surgery: No Endocrine Surgery: No Eye Surgery: No Genitourinary Surgery: No Gynecologic Surgery: No Insulin Pump: No Joint Replacement: No Neurologic Surgery: No Oral Surgery: No Pacemaker: No Thoracic Surgery: No Other Surgery: Yes (left kidney removal) Social History Alcohol Use: No (FORMER) Tobacco Use: No Substance Use: No Allergies-Medications (Allergen,Severity, Reaction): Coded Allergies: Morphine (Unverified Adverse Reaction, Severe, VOMITING, 06/14/16) Comments List of his allergies reviewed from the nursing note. Reported Meds & Prescriptions Reported Meds & Active Scripts Active Baclofen 10 Mg Tab 10 Mg PO TID PRN Ambien (Zolpidem Tartrate) 10 Mg Tab 10 Mg PO HS PRN Xarelto (Rivaroxaban) 20 Mg Tab 20 Mg PO DAILY Effexor XR 24 HR (Venlafaxine HCl) 75 Mg Cap 150 Mg PO DAILY Serevent Diskus Inh (Salmeterol Xinafoate) 50 Mcg/Act Aero 50 Mcg INH BID Pravachol (Pravastatin) 40 Mg Tab 40 Mg PO HS Hydrocodone-Acetaminophen 5-325 mg Tab 1 Tab PO Q4H PRN Neurontin (Gabapentin) 300 Mg Cap 300 Mg PO TID Folate (Folic Acid) 1 Mg Tab 1 Mg PO DAILY Digoxin 0.125 Mg Tab 0.125 Mg PO DAILY Coreg (Carvedilol) 3.125 Mg Tab 3.125 Mg PO Q12HR Narrative Medication List of his home medications reviewed from the nursing note. Review of Systems Except as stated in HPI: all other systems reviewed are Neg Physical Exam Narrative GENERAL: Awake, alert, mild distress, obese SKIN: Focused skin assessment warm/dry. Pale HEAD: Atraumatic. Normocephalic. EYES: Pupils equal and round. No scleral icterus. No injection or drainage. Pallor ENT: No nasal bleeding or discharge. Mucous membranes pink and moist. NECK: Trachea midline. No JVD. CARDIOVASCULAR: Regular rate and rhythm. No murmur appreciated. RESPIRATORY: No accessory muscle use. Significantly diminished air entry on the left side almost all the way up to the apex GASTROINTESTINAL: Abdomen soft, non-tender, nondistended. Hepatic and splenic margins not palpable. MUSCULOSKELETAL: No obvious deformities. No clubbing. No cyanosis. Generalized anasarca. NEUROLOGICAL: Awake and alert. No obvious cranial nerve deficits. Motor grossly within normal limits. Normal speech. PSYCHIATRIC: Appropriate mood and affect; insight and judgment normal. Data Data Last Documented VS Vital Signs Date Time Temp Pulse Resp B/P Pulse Ox O2 Delivery O2 Flow Rate FiO2 06/14/16 22:46 100 Nasal Cannula 2 06/14/16 20:41 68 28 172/79 06/14/16 20:19 98.3 Orders Complete Blood Count With Diff (06/14/16 21:20) Basic Metabolic Panel (Bmp) (06/14/16 21:20) B-Type Natriuretic Peptide (06/14/16 21:20) Prothrombin Time / Inr (Pt) (06/14/16 21:20) Troponin I (06/14/16 21:20) Blood Culture (06/14/16 21:20) Iv Access Insert/Monitor (06/14/16 21:20) Ecg Monitoring (06/14/16 21:20) Oximetry (06/14/16 21:20) Oxygen Administration (06/14/16 21:20) Chest, Single Ap (06/14/16 21:20) Sodium Chloride 0.9% Flush (Ns Flush) (06/14/16 21:30) Type And Screen (06/14/16 21:20) Red Blood Cells (Rbc) (06/14/16 22:02) Blood Product Administration .UPON TRANSFUSION (06/14/16 22:02) Sodium Chlor 0.9% 250 Ml Inj (Ns 250 Ml (06/14/16 22:15) Furosemide Inj (Lasix Inj) (06/14/16 22:30) Admit Order (Ed Use Only) (06/14/16 22:49) Admit To Inpatient (06/14/16 ) Vital Signs (Adult) Q4H (06/14/16 22:47) Activity Oob With Assistance (06/14/16 22:47) Intake + Output JAMISON.QSHIFT (06/14/16 22:47) Sodium Chloride 0.9% Flush (Ns Flush) (06/14/16 23:00) Sodium Chloride 0.9% Flush (Ns Flush) (06/15/16 09:00) Acetaminophen (Tylenol) (06/14/16 23:00) Ondansetron Inj (Zofran Inj) (06/14/16 23:00) Complete Blood Count With Diff (06/15/16 06:00) Resp Oxygen Elmer C Titrat 1-4 L (06/14/16 ) Naloxone Inj (Narcan Inj) (06/14/16 23:00) Inpatient Certification (06/14/16 ) Consult Medical Oncology (06/14/16 ) Labs Laboratory Tests Test 06/14/16 06/14/16 21:25 22:02 White Blood Count 43.5 TH/MM3 Red Blood Count 1.28 MIL/MM3 Hemoglobin 4.0 GM/DL Hematocrit 13.7 % Mean Corpuscular Volume 107.1 FL Mean Corpuscular Hemoglobin 30.9 PG Mean Corpuscular Hemoglobin 28.8 % Concent Red Cell Distribution Width 23.9 % Platelet Count 322 TH/MM3 Mean Platelet Volume 9.1 FL Neutrophils (%) (Auto) 6.5 % Lymphocytes (%) (Auto) 92.3 % Monocytes (%) (Auto) 0.6 % Eosinophils (%) (Auto) 0.4 % Basophils (%) (Auto) 0.2 % Neutrophils # (Auto) 2.8 TH/MM3 Lymphocytes # (Auto) 40.2 TH/MM3 Monocytes # (Auto) 0.3 TH/MM3 Eosinophils # (Auto) 0.2 TH/MM3 Basophils # (Auto) 0.1 TH/MM3 CBC Comment AUTO DIFF Differential Comment AUTO DIFF CONFIRMED Platelet Estimate NORMAL Platelet Morphology Comment NORMAL Prothrombin Time 13.9 SEC Prothromb Time International 1.2 RATIO Ratio Sodium Level 142 MEQ/L Potassium Level 4.5 MEQ/L Chloride Level 106 MEQ/L Carbon Dioxide Level 31.1 MEQ/L Anion Gap 5 MEQ/L Blood Urea Nitrogen 21 MG/DL Creatinine 1.18 MG/DL Estimat Glomerular Filtration 62 ML/MIN Rate Random Glucose 105 MG/DL Calcium Level 8.1 MG/DL Troponin I LESS THAN 0.02 NG/ML B-Type Natriuretic Peptide 255 PG/ML Blood Type A POSITIVE Antibody Screen NEGATIVE Crossmatch Leukocyte-Reduced Red Blood Cells Blood Bank Comment MDM Medical Decision Making Medical Screen Exam Complete: Yes Emergency Medical Condition: Yes Medical Record Reviewed: Yes Interpretation(s) Twelve-lead EKG was reviewed by me. Atrial fibrillation, low voltage, normal axis. Heart rate of 69 bpm. Differential Diagnosis Pleural effusion, congestive heart failure, pneumonia, anemia Narrative Course 10:24 PM blood test results of back and patient has severe anemia. I've ordered 2 units of blood transfusion. Chest x-ray suggestive of moderate left pleural effusion. I mentioned these findings to the patient and the blood transfusion plan. At that point patient told me that he gets blood transfusion almost every 3 weeks that's given by his oncologist. This is related to his leukemia he was told. His white count is elevated but when I trended back he has had higher blood count in recent past. Once again probably from the leukemia. Patient once again denied of any fever or chills and these past one and half weeks. Even though patient is on Xarelto I think the anemia is related to the leukemia. Patient did not complain of any GI bleed. Awaiting for the hospitalist to call back for admission. I've also ordered 40 mg of IV Lasix given the fact that patient will get some fluid load from the transfusion. Critical Care Narrative Aggregate critical care time was 45 minutes. Time to perform other separately billable procedures was not included in the critical care time. My time did not include minutes spent treating any other patients simultaneously or on activities that did not directly contribute to the patient's treatment. The services I provided to this patient were to treat and/or prevent clinically significant deterioration that could result in: Respiratory distress, moderate pleural effusion, severe anemia, blood transfusion I provided critical care services requiring my management, as noted below: Chart data review, documentation time, medication orders and management, vital sign assessments/reviewing monitor data, ordering and reviewing lab tests, ordering and interpreting/reviewing x-rays and diagnostic studies, care of the patient and discussion of the patient with the admitting physicians. Procedures EKG Prior to Arrival: No Diagnosis Primary Impression: Respiratory distress Additional Impressions: Pleural effusion Symptomatic anemia Leukocytosis Qualified Code: D72.829 - Leukocytosis, unspecified type Atrial fibrillation Qualified Code: I48.2 - Chronic atrial fibrillation Anasarca Admitting Information Admitting Physician Requests: Admit Scripts Pantoprazole 40 Mg Tab40 Mg PO DAILY #30 TAB Ref 2 Prov:Martínez Pina MD R2 06/16/16 Titi Wisdom MD Jun 14, 2016 20:55
[2016-06-14 21:22] LABS: MEAN CORPUSCULAR HGB CONC 28.8 % (32.0-36.0)
[2016-06-14] MEDS ORDERED: SODIUM CHLORIDE 0.9% FLUSH 10 ML FLUSH IVF PRN (21:30)
[2016-06-14 21:43] LABS: AUTOMATED NEUTROPHIL # 2.8 TH/MM3 (1.8-7.7); BASOPHIL # 0.1 TH/MM3 (0-0.2); BASOPHIL % 0.2 % (0.0-2.0); EOSINOPHIL # 0.2 TH/MM3 (0-0.4); EOSINOPHIL % 0.4 % (0.0-4.0); LYMPH % 92.3 % (9.0-44.0); LYMPHOCYTE # 40.2 TH/MM3 (1.0-4.8); MEAN CELL VOLUME 107.1 FL (80.0-100.0); MEAN CORPUSCULAR HEMOGLOBIN 30.9 PG (27.0-34.0); MONO % 0.6 % (0.0-8.0); NEUT % 6.5 % (16.0-70.0); PLATELET COUNT 322 TH/MM3 (150-450); RED BLOOD COUNT 1.28 MIL/MM3 (4.50-5.90); RED CELL DISTRIBUTION WIDTH 23.9 % (11.6-17.2); WHITE BLOOD COUNT 43.5 TH/MM3 (4.0-11.0)
[2016-06-14 21:50] LABS: HEMO FLAGS AUTO DIFF; INTERNATIONAL NORMALIZED RATIO 1.2 RATIO; PROTHROMBIN TIME - PATIENT 13.9 SEC (9.8-11.6)
[2016-06-14 21:52] LABS: HEMATOCRIT 13.7 % (39.0-51.0)
--- NOTE | 2016-06-14 22:12 | RADRPT ---
EXAM DATE/TIME: 06/14/2016 21:50 [facility] COMPARISON: CHEST SINGLE AP, April 06, 2016, 5:07. INDICATIONS : Short of breath, swelling. MEDICAL HISTORY : Anemia. Metastatic renal cell carcinoma. Diabetes. COPD. SURGICAL HISTORY : Bone marrow biopsy. Left Nephrectomy. Infusaport. ENCOUNTER: Initial ACUITY: 2 days PAIN SCORE: 3/10 LOCATION: chest FINDINGS: Small right and large left pleural effusions are demonstrated. There is left base atelectasis. Simila r findings were seen on the prior. No pneumothorax. There is a right internal jugular [id number] catheter, tip in the superior vena cava. There is a potential fracture laterally of the right seventh rib. I don't clearly see it previously. CONCLUSION: Left greater than right pleural effusions and basilar atelectasis present but similar to the March comparison. Questionable acute or subacute right seventh rib fracture. Eitan Cameron MD on June 14, 2016 at 22:08 Board Certified Radiologist. This report was verified electronically.
[2016-06-14 22:14] LABS: ANION GAP 5 MEQ/L (5-15); BICARBONATE 31.1 MEQ/L (21.0-32.0); BLOOD UREA NITROGEN 21 MG/DL (7-18); CHLORIDE 106 MEQ/L (98-107); GLOMERULAR FILTRATION RATE 62 ML/MIN (>89); POTASSIUM 4.5 MEQ/L (3.5-5.1); SODIUM (NA) 142 MEQ/L (136-145)
[2016-06-14] MEDS ORDERED: SODIUM CHLOR 0.9% 250 ML INJ 250 ML IV ONE (22:15)
[2016-06-14 22:30] LABS: PLATELET ESTIMATE SMEAR NORMAL (NORMAL); PLATELET MORPHOLOGY NORMAL (NORMAL); SCAN/DIFF AUTO DIFF CONFIRMED
[2016-06-14] MEDS ORDERED: FUROSEMIDE 40 MG/4 ML VIAL IV PUSH ONE (22:30)
[2016-06-14 22:53] VITALS: O2SAT 98
[2016-06-14] MEDS ORDERED: ONDANSETRON HCL 4 MG/2 ML VIAL IVP PRN (23:00)
[2016-06-14] MEDS ORDERED: ACETAMINOPHEN 325 MG TAB PO PRN (23:00)
[2016-06-14] MEDS ORDERED: NALOXONE HCL 0.4 MG/ML AMP IV PRN (23:00)
[2016-06-14] MEDS ORDERED: SODIUM CHLORIDE 0.9% FLUSH 10 ML FLUSH IV FLUSH PRN (23:00)
[2016-06-14] MEDS ORDERED: RESP: ALBUTEROL 2.5 MG/3 ML NEB (PRN) INH (23:15)
[2016-06-14] MEDS ORDERED: hydrALAZINE HCL 20 MG/ML VIAL IV PUSH PRN (23:15)
[2016-06-14] MEDS ORDERED: ACETAMINOPHEN/HYDROcodone 325 MG/5 MG TAB PO PRN (23:15)
[2016-06-14] MEDS ORDERED: ZOLPIDEM TARTRATE 10 MG TAB PO PRN (23:15)
[2016-06-14] MEDS ORDERED: BACLOFEN 10 MG TAB PO PRN (23:15)
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
[2016-06-15] VITALS (15 sets, daily range): BP systolic 113–155; BP diastolic 65–109; PULSE 60–90; RESP 16–20; TEMP 96–98.2; O2SAT 94–99
[2016-06-15] MEDS: ACETAMINOPHEN/HYDROcodone 325 MG/5 MG TAB PO PRN ×4 (02:10→20:33)
[2016-06-15] MEDS ORDERED: cloNIDine HCL 0.1 MG TAB PO PRN (02:15)
[2016-06-15] MEDS ORDERED: diphenhydrAMINE HCL 25 MG CAP PO PRN (02:15)
[2016-06-15] MEDS: FUROSEMIDE 40 MG/4 ML VIAL IV PUSH SCH ×2 (08:51→17:04)
[2016-06-15] MEDS: POTASSIUM CHLORIDE 20 MEQ CONTROLLED RELEASE TAB PO SCH ×2 (08:51→20:33)
[2016-06-15] MEDS: SALMETEROL XINAFOATE 50 MCG DISKUS INH SCH ×2 (08:51→20:35)
[2016-06-15] MEDS: DIGOXIN 0.125 MG TAB PO SCH (08:51)
[2016-06-15] MEDS: CARVEDILOL 3.125 MG TAB PO SCH ×2 (08:52→20:34)
[2016-06-15] MEDS: SODIUM CHLORIDE 0.9% FLUSH 10 ML FLUSH IV FLUSH SCH ×2 (08:52→20:35)
[2016-06-15] MEDS: GABAPENTIN 300 MG CAP PO SCH ×3 (08:52→17:04)
[2016-06-15] MEDS: FOLIC ACID 1 MG TAB PO SCH (08:52)
--- NOTE | 2016-06-15 10:40 | RADRPT ---
EXAM DATE/TIME: 06/15/2016 10:29 [facility] COMPARISON: CHEST SINGLE AP, June 14, 2016, 21:50. INDICATIONS : Post left thoracentesis MEDICAL HISTORY : Anemia. Metastatic renal cell carcinoma. Diabetes. COPD. SURGICAL HISTORY : Bone marrow biopsy. Left Nephrectomy. Infusaport. ENCOUNTER: Subsequent ACUITY: 3 days PAIN SCORE: 3/10 LOCATION: Left chest FINDINGS: Portable upright expiratory view of the chest demonstrates a normal-sized cardiac silhouette. Right c hest wall [id number] is present. Left hemidiaphragm is elevated. There is no pneumothorax followin g recent left thoracentesis. There is airspace opacity in the lower lung zones bilaterally. CONCLUSION: 1. No pneumothorax is present following recent left thoracentesis. 2. Chronically elevated left hemidiaphragm with airspace opacity in the lower lung zones bilaterally. Eitan Modi MD on June 15, 2016 at 10:36 Board Certified Radiologist. This report was verified electronically.
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
--- NOTE | 2016-06-15 11:37 | RADRPT ---
EXAM DATE/TIME: 06/15/2016 09:48 [facility] COMPARISON: No previous studies available for comparison. INDICATIONS : Left pleural effusion. MEDICAL HISTORY : Hypercholesterolemia. Hypertension. Chronic obstructive pulmonary disease. CHF. Afib. GERD. Renal f ailure. Kidney cancer. Lung cancer. Leukemia. SURGICAL HISTORY : Back surgery. ENCOUNTER: Initial ACUITY: 1 day PAIN SCORE: 0/10 LOCATION: Left chest FLUID: Total volume of 1,500 cc of bloody fluid was removed. Fluid was discarded. Thoracentesis was therapeutic only. TECHNIQUE: 1. Ultrasound guidance for thoracentesis. 2. Thoracentesis. The risks, benefits, and alternatives to ultrasound guided thoracentesis were explained to the patien t in lay simple terms, including the risk of bleeding and infection. Written and verbal informed con sent was obtained. Appropriate area for thoracentesis was marked under ultrasound guidance with the patient in the uprig ht position. Overlying skin was prepped and draped in the usual sterile fashion and with local anest hetic, a dermatotomy was made with an 11 blade scalpel. A 6 [place] thoracentesis catheter was placed in the pleural space and fluid was removed. Catheter was then removed and a sterile dressing applie d. There were no immediate complications. The patient tolerated the procedure well and the left the ultrasound suite in stable condition. Chest radiograph is to be obtained. CONCLUSION: Uncomplicated ultrasound guided thoracentesis with removal of 1.5 L of bloody fluid. Eitan Modi MD on June 15, 2016 at 11:34 Board Certified Radiologist. This report was verified electronically.
[2016-06-15 11:42] LABS: HEMATOCRIT 31.8 % (39.0-51.0); MEAN CELL VOLUME 99.6 FL (80.0-100.0); MEAN CORPUSCULAR HEMOGLOBIN 30.8 PG (27.0-34.0); PLATELET COUNT 232 TH/MM3 (150-450); RED BLOOD COUNT 3.19 MIL/MM3 (4.50-5.90); RED CELL DISTRIBUTION WIDTH 23.9 % (11.6-17.2); WHITE BLOOD COUNT 25.8 TH/MM3 (4.0-11.0)
[2016-06-15 11:43] LABS: HEMO FLAGS AUTO DIFF
[2016-06-15 11:58] LABS: ALT (GPT) 27 U/L (12-78); ANION GAP 6 MEQ/L (5-15); AST (GOT) 28 U/L (15-37); BLOOD UREA NITROGEN 19 MG/DL (7-18); CHLORIDE 105 MEQ/L (98-107); GLOMERULAR FILTRATION RATE 78 ML/MIN (>89); POTASSIUM 3.9 MEQ/L (3.5-5.1); SODIUM (NA) 144 MEQ/L (136-145)
[2016-06-15 11:59] LABS: TRANSFERRIN IRON PROFILE 155 MG/DL (200-360)
[2016-06-15 12:00] LABS: ALKALINE PHOSPHATASE 247 U/L (45-117); LDH SERUM 208 U/L (87-241); TOTAL BILIRUBIN ADULT 0.9 MG/DL (0.2-1.0)
[2016-06-15 12:33] LABS: FERRITIN 839 NG/ML (26-388)
[2016-06-15] MEDS: VENLAFAXINE HCL XR 75 MG CAP PO SCH (12:37)
[2016-06-15 12:42] LABS: NEUTROPHIL # MANUAL DIFF 2.6 TH/MM3 (1.8-7.7); POLYS (SEG NEUTROPHILS) 10 % (16-70); WBC DIFF SAMPLE 100
[2016-06-15 12:45] LABS: PLATELET ESTIMATE SMEAR NORMAL (NORMAL); PLATELET MORPHOLOGY NORMAL (NORMAL); SCAN/DIFF FINAL DIFF MANUAL; SMUDGE CELLS PRESENT PRESENT; STOMATOCYTES 1+ (NORMAL)
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
[2016-06-15 17:12] LABS: HEMATOCRIT 30.4 % (39.0-51.0); REVIEW FLAG FINAL
[2016-06-15] MEDS ORDERED: PEG (High)/E-LYTE SOLN 4000 ML BTL PO ONE (17:30)
--- NOTE | 2016-06-15 17:46 | EKG ---
Date Performed: 06/14/2016 Time Performed: 20:54:44 PTAGE: 66 years EKG: ATRIAL FIBRILLATION LOW QRS VOLTAGE SEPTAL MYOCARDIAL INFARCTION Nonspecific ST-T changes A BNORMAL ECG Compared to prior study of 03/30/2016, there is no signficiant change. PREVIOUS TRACING : 03/30/2016 16.37 DOCTOR: Jamal Kay Interpretating Date/Time 06/15/2016 17:44:38
[2016-06-15] MEDS ORDERED: PRAVASTATIN SOD 40 MG TAB PO SCH (21:00)
--- NOTE | 2016-06-15 22:35 | MB ---
cc: HAYDEN BLACKWOOD MD DATE OF CONSULTATION 06/15/[address] Butler REASON FOR CONSULTATION Oncology is consulted to render opinion regarding patient with metastatic renal cell cancer and chronic lymphocytic leukemia admitted with severe anemia. HISTORY OF PRESENT ILLNESS The patient is a 66-year-old male with history of metastatic renal cell carcinoma recently started on immunotherapy as well as chronic lymphocytic leukemia. He presented to the hospital with complaint of increased shortness of breath for the last week and a half. He also has increased weakness and fatigue. He did not call out office. Yesterday he became very weak and not even able to get out of bed. He was brought to the emergency room and found to have a hemoglobin of four. He received 2 units of packed red blood cell transfusion. When I saw him this morning, he was feeling much better. He denies any fever, chills, night sweats. He has regained his appetite recently. He denies any chest pain or palpitation. He denies any headache and denies any visual changes. Denies any nausea, vomiting, diarrhea, abdominal pain. He denies any melena or hematochezia. He has chronic back pain and muscle ache, but it is controlled with pain medication. PAST MEDICAL HISTORY 1. Metastatic renal cell carcinoma. 2. Chronic lymphocytic leukemia. 3. Recent C-difficile colitis. 4. Pulmonary embolism 2013, currently on Xarelto. 5. Coronary artery disease 6. Chronic obstructive pulmonary disease. 7. Diabetes mellitus 8. Chronic anemia 9. Anxiety 10. Osteoarthritis PAST SURGICAL HISTORY 1. Left nephrectomy 2012 2. Vasectomy. 3. Bone marrow biopsy 4. Thoracentesis. FAMILY HISTORY Noncontributory. SOCIAL HISTORY Denied tobacco or alcohol use. ALLERGIES MORPHINE MEDICATIONS Current, 1. Pravastatin. 2. Lasix. 3. Coreg. 4. Digoxin. 5. Folic acid, 6. Gabapentin 7. Serevent Diskus 7. Effexor 8. Potassium. REVIEW OF SYSTEMS CONSTITUTIONAL: Increased weakness but otherwise negative. EYES: Denies any blurry vision, double vision. ENT: No mouth sores or voice changes. CARDIOVASCULAR: Denies any chest pressure, palpitation RESPIRATORY: As above. GI: Denies any nausea, vomiting, abdominal pain. Denies any melena or hematochezia. : Denies dysuria, hematuria MUSCULOSKELETAL: Denies muscle ache and backache HEMATOLOGY: As above. ENDOCRINE: Negative DERMATOLOGY: Negative. PSYCHIATRIC: Negative. NEUROLOGIC: Generalized weakness but no focal weakness. PHYSICAL EXAMINATION VITAL SIGNS: Temperature 96.2, blood pressure 155/87, O2 saturation 97%. GENERAL: He is alert and oriented x3 in no acute distress, looks a little pale. HEENT: Atraumatic, normocephalic. Pupils equal, round and reactive to light. Extraocular muscles intact. Oropharynx moist mucosa. No lesion, no thrush. NECK: No thyromegaly. No palpable masses. LYMPHATICS: No palpable cervical, clavicular, axillary or inguinal lymph node CARDIOVASCULAR: Regular S1-S2 no murmur. LUNGS: Decreased breath sound, left greater than right. Positive rhonchi. ABDOMEN: Soft, nontender. I Could not palpate liver or spleen. EXTREMITIES: No cyanosis, no clubbing. Trace ankle edema. No calf tenderness. BACK: No paravertebral tenderness. SKIN: No rash or petechiae NEUROLOGIC: Nonfocal. LABORATORY DATA Laboratory data reviewed ASSESSMENT 1. Severe symptomatic anemia. He has had chronic anemia likely due to his metastatic renal cell carcinoma as well as his previous cancer treatment. During his last hospital stay, his stool occult blood test was positive. I think he may also have occult GI bleed given that he is on anticoagulation with Xarelto. He denies any gross GI bleed at this time. His hemoglobin was 9 about a week ago and has now dropped down to 4. I am going to check a stool occult blood test. We will consult GI for further evaluation. The patient stated that his last colonoscopy was about a year ago. Agree with transfusion to keep hemoglobin above eight. 2. Shortness of breath due to severe anemia. He also has history of bilateral pleural effusion, left greater than right. His chest x-ray again showed bilateral pleural effusion, but stable compared to March. He is supposed to go to radiology for thoracentesis of the left lung. He has known malignant pleural effusion from the metastatic renal cell carcinoma. 3. Metastatic renal cell carcinoma first diagnosed in 2013 status post left nephrectomy. He later developed metastatic pulmonary nodule. He was treated with Votrient but recently has progression of disease. He also has known history of malignant pleural effusion due to the metastatic renal cell carcinoma. He was started on nivolumab recently. He has tolerated it well so far, still a little too early to determine if he has responded to treatment. 4. Chronic lymphocytic leukemia. He is currently being monitored. His baseline white blood cell count was around between 20,000 to 30,000. His platelet count remains normal. He has no clear evidence of hemolysis. 5. Recent history of C-difficile colitis. He has no symptoms. 6. Right kidney mass. CT showed findings more consistent with a complex cyst. 7. History of pulmonary embolism. He is on Xarelto. 8. Osteoarthritis. He has chronic pain but controlled 9. Peripheral neuropathy 10. Diabetes mellitus. 11. Chronic atrial fibrillation on anticoagulation. PLAN 1. Agree with transfusion to keep hemoglobin above eight. 2. Await thoracentesis 3. Consult GI for further evaluation. 4. Can restart Xarelto once cleared by GI. 5. Monitor CBC Thank you, Dr. Butler, for asking me to see this patient. MD JONATHAN Salazar/ /5:39 PM /10:03 PM MAGO
[2016-06-16] VITALS (7 sets, daily range): BP systolic 104–147; BP diastolic 53–82; PULSE 63–89; RESP 16–18; TEMP 96.2–97.5; O2SAT 92–100
[2016-06-16 06:13] LABS: HEMATOCRIT 29.9 % (39.0-51.0); MEAN CORPUSCULAR HEMOGLOBIN 31.7 PG (27.0-34.0); MEAN CORPUSCULAR HGB CONC 31.7 % (32.0-36.0); PLATELET COUNT 221 TH/MM3 (150-450); RED BLOOD COUNT 2.99 MIL/MM3 (4.50-5.90); RED CELL DISTRIBUTION WIDTH 24.5 % (11.6-17.2); REVIEW FLAG FINAL; WHITE BLOOD COUNT 25.3 TH/MM3 (4.0-11.0)
--- NOTE | 2016-06-16 07:56 | HHI.FPPN ---
Subjective Remarks Patient seen and examined this morning. Afebrile vital signs stable. Hemoglobin has been remaining stable. Patient is aware that the plan is for an EGD and colonoscopy today, if cleared by GI following procedure patient can be discharged with follow-up with Dr. Corral on Sunday06/20/16. Endorses: None Denies: Fever, chills, nausea, vomiting, shortness of breath, chest pain, headache, abdominal pain, calf pain (Martínez Pina MD R2) Objective Vitals Vital Signs Date Time Temp Pulse Resp B/P Pulse Ox O2 Delivery O2 Flow Rate FiO2 06/16/16 04:00 96.5 89 17 117/73 96 06/16/16 00:00 96.2 65 17 115/74 97 06/15/16 21:45 98 Nasal Cannula 2.00 06/15/16 20:00 96.3 60 17 131/79 98 06/15/16 15:50 96.6 69 20 122/65 96 06/15/16 11:50 96.3 64 20 132/75 94 06/15/16 11:46 96 Nasal Cannula 2.00 06/15/16 11:00 69 16 122/67 95 06/15/16 10:45 97.8 69 16 113/67 95 06/15/16 09:34 97.0 74 20 122/70 98 06/15/16 07:50 96.2 73 20 155/87 97 I/O 06/15/16 06/15/16 06/15/16 06/16/16 06/16/16 06/16/16 07:00 15:00 23:00 07:00 15:00 23:00 Intake Total 0 ml 120 ml 960 ml 0 ml Output Total 2550 ml 450 ml Balance -2550 ml -330 ml 960 ml 0 ml Intake Oral 0 ml 120 ml 960 ml 0 ml Output Urine Total 2550 ml 450 ml # Voids 1 1 5 3 # Bowel Movements 0 0 10 3 (Martínez Pina MD R2) Result Diagram: 06/16/16 0500 06/16/16 0500 Imaging Last Impressions Thoracentesis Ultrasound 06/15/16 0000 Signed Impressions: Service Date/Time: May 09:48 - CONCLUSION: Uncomplicated ultrasound guided thoracentesis with removal of 1.5 L of bloody fluid. Eitan Modi MD Chest X-Ray 06/15/16 0000 Signed Impressions: Service Date/Time: May 10:29 - CONCLUSION: 1. No pneumothorax is present following recent left thoracentesis. 2. Chronically elevated left hemidiaphragm with airspace opacity in the lower lung zones bilaterally. Eitan Modi MD Objective Remarks GENERAL: Well-nourished, well-developed patient. No acute distress. SKIN: Warm and dry. No rash. EYES: No scleral icterus. No injection or drainage. PERRLA. EOMI. HENT: Normocephalic. Atraumatic. MMM. NECK: No visible JVD or lymphadenopathy. CARDIOVASCULAR: Regular rate and rhythm RESPIRATORY: Clear to auscultation bilaterally GASTROINTESTINAL: Abdomen nondistended. MUSCULOSKELETAL: Strength grossly WNL. BACK: Without obvious deformity. NEURO/PSYCH: Afocal. Awake, alert, and oriented x3. Procedures Thoracentesis on 06/15/16 Medications and IVs Current Medications Medications (Trade) Dose Ordered Sig/[place] Route Start Time Stop Time Status Last Admin (NS Flush) 2 ml UNSCH PRN IV FLUSH 06/14/16 23:00 (NS Flush) 2 ml BID IV FLUSH 06/15/16 09:00 06/15/16 20:35 (Tylenol) 650 mg Q4H PRN PO 06/14/16 23:00 (Zofran Inj) 4 mg Q6H PRN IVP 06/14/16 23:00 06/15/16 02:42 (Narcan Inj) 0.4 mg UNSCH PRN IV 06/14/16 23:00 (Lasix Inj) 40 mg BID@,18 IV PUSH 06/15/16 09:00 06/15/16 17:04 (Lioresal) 10 mg TID PRN PO 06/14/16 23:15 (Coreg) 3.125 mg Q12HR PO 06/15/16 09:00 06/15/16 20:34 (Lanoxin) 0.125 mg DAILY PO 06/15/16 09:00 06/15/16 08:51 (Folate) 1 mg DAILY PO 06/15/16 09:00 06/15/16 08:52 (Neurontin) 300 mg TID PO 06/15/16 09:00 06/15/16 17:04 (Pravachol) 40 mg HS PO 06/15/16 21:00 06/15/16 20:33 (Serevent Diskus Inh) 50 mcg BID INH 06/15/16 09:00 06/15/16 20:35 (Effexor Xr) 150 mg DAILY PO 06/15/16 09:00 06/15/16 12:37 (Ambien) 10 mg HS PRN PO 06/14/16 23:15 ([place] 5-325 Mg) 1 tab Q4H PRN PO 06/14/16 23:15 ([place] 5-325 Mg) 2 tab Q4H PRN PO 06/14/16 23:15 06/15/16 20:33 (KCl) 20 meq BID PO 06/15/16 09:00 06/15/16 20:33 (Catapres) 0.1 mg Q6H PRN PO 06/15/16 02:15 (Martínez Pina MD R2) A/P Assessment and Plan 66 year old male with PMH significant for metastatic renal cell carcinoma diagnosed in 2012 with metastases to lungs and s/p left nephrectomy, also with CLL he is followed by Dr. Corral, oncology, and with h/o CHF, chronic macrocytic anemia, pulmonary embolism in 2013 now on Xarelto who presented to the ED with progressive shortness of breath over the past week and a half along with fatigue. He has been admitted for thoracentesis and further workup of anemia consisting of EGD and colonoscopy. Discharge Planning Possible discharge home today or tomorrow pending results of EGD and colonoscopy (Martínez Pina MD R2) Attending Attestation Patient seen and examined. Case reviewed and discussed with the resident team. Agree with plan of care as discussed with me and documented in the resident note. he is doing well and wants to go home as soon as possible (Ana Butler MD) Problem List: (1) Macrocytic anemia Status: Acute Plan: Chronic macrocytic anemia likely related to patients leukemia Patient did state he receives blood transfusions about every 3 weeks by his oncologist Hgb 4.0 on admission, now stable at 9.5 - Status post 2 units of PRBCs transfused - Previously positive Hemoccult, patient denies any blood in his stool - GI hr shared services consultant recommendations appreciated - EGD/colonoscopy planned for today (2) Pleural effusion Status: Acute Plan: Patient has recurrent pleural effusions likely due to metastases to lungs Status post thoracentesis, no pneumothorax seen on follow-up imaging - Hold home Xarelto, restart once he can - Continue Lasix 40 mg IV bid - Monitor I/Os - O2 via NC to maintain sats > 92% - Continue serevent 50 mcg bid - Albuterol 2.5 mg via neb q2h prn SOB (3) Renal cell carcinoma Status: Chronic Plan: - Patient is followed by Dr. Corral, review of medical oncology records show patient has completed three cycles of nivolumab - Patient also has CLL, wbc had trended as high as 65,000 recently - Consult medical oncology, recommendations appreciated (4) Hypertension Status: Chronic Plan: Continue home Coreg 3.125 mg po q12h Hydralazine 20 mg IV q4h prn > 180/100 Monitor vitals q4h (5) FEN/Ppx Status: Acute Plan: Fluids: none Electrolytes: within normal limits Nutrition: heart healthy diet DVT PPX: b/l SCDs, hold chemical anticoagulation until cleared by GI (Martínez Pina MD R2) Problem Qualifiers (1) Renal cell carcinoma: Qualified Code: C64.2 - Renal cell carcinoma, left (2) Hypertension: Qualified Code: I10 - Essential hypertension Martínez Pina MD R2 Jun 16, 2016 07:56 Ana Butler MD Jun 16, 2016 11:04
[2016-06-16] MEDS: SALMETEROL XINAFOATE 50 MCG DISKUS INH SCH (08:24)
[2016-06-16] MEDS: FUROSEMIDE 40 MG/4 ML VIAL IV PUSH SCH (08:24)
[2016-06-16] MEDS: DIGOXIN 0.125 MG TAB PO SCH (08:25)
[2016-06-16] MEDS: CARVEDILOL 3.125 MG TAB PO SCH (08:25)
[2016-06-16] MEDS: SODIUM CHLORIDE 0.9% FLUSH 10 ML FLUSH IV FLUSH SCH (08:28)
--- NOTE | 2016-06-16 09:51 | HHI.DCPOC ---
Discharge Care Plan Diagnosis: (1) Anemia (2) CLL (chronic lymphocytic leukemia) (3) Pleural effusion (4) Renal carcinoma Goals to Promote Your Health * To prevent worsening of your condition and complications * To maintain your health at the optimal level Directions to Meet Your Goals Take your medications as prescribed Follow your dietary instruction Follow activity as directed Keep your appointments as scheduled Take your immunizations and boosters as scheduled If your symptoms worsen call your PCP, if no PCP go to Urgent Care Center or Emergency Room Smoking is Dangerous to Your Health. Avoid second hand smoke Call the 24-hour hour crisis hotline for domestic abuse at Martínez Pina MD R2 Jun 16, 2016 09:51
--- NOTE | 2016-06-16 10:41 | HHI.DS ---
Discharge Summary Admission Date Jun 14, 2016 at 22:50 Discharge Date: Jun 16, 2016 Admitting Diagnosis respiratory distress, pleural effusion, symptomatic anemia (1) Macrocytic anemia Diagnosis: Principal Plan: Chronic macrocytic anemia likely related to patients leukemia Patient did state he receives blood transfusions about every 3 weeks by his oncologist Hgb 4.0 on admission, now stable at 9.5 - Status post 2 units of PRBCs transfused - Previously positive Hemoccult, patient denies any blood in his stool - GI domestic travel consultant recommendations appreciated - EGD/colonoscopy planned for today (2) Pleural effusion Diagnosis: Principal Plan: Patient has recurrent pleural effusions likely due to metastases to lungs Status post thoracentesis, no pneumothorax seen on follow-up imaging - Hold home Xarelto, restart once he can - Continue Lasix 40 mg IV bid - Monitor I/Os - O2 via NC to maintain sats > 92% - Continue serevent 50 mcg bid - Albuterol 2.5 mg via neb q2h prn SOB (3) Renal cell carcinoma Diagnosis: Secondary Plan: - Patient is followed by Dr. Corral, review of medical oncology records show patient has completed three cycles of nivolumab - Patient also has CLL, wbc had trended as high as 65,000 recently - Consult medical oncology, recommendations appreciated (4) Hypertension Diagnosis: Secondary Plan: Continue home Coreg 3.125 mg po q12h Hydralazine 20 mg IV q4h prn > 180/100 Monitor vitals q4h (5) FEN/Ppx Diagnosis: Secondary Plan: Fluids: none Electrolytes: within normal limits Nutrition: heart healthy diet DVT PPX: b/l SCDs, hold chemical anticoagulation until cleared by GI Consultants Hematology/oncology: Dr. Corral Gastroenterology Procedures Thoracentesis on 06/15/16 Brief History Ms Bennett is a 66 year old male with PMH significant for metastatic renal cell carcinoma diagnosed in 2012 s/p left nephrectomy with metastases to lungs, also with CLL he is followed by Dr. Corral, oncology, and with h/o CHF, chronic macrocytic anemia, pulmonary embolism in 2013 now on Xarelto came to the ED with progressive shortness of breath over the past week and a half. Patient has a history of pleural effusions, he states his lungs were drained about one year ago in [place] and he had had a chest tube in place at that time. Patient states he noticed himself becoming short of breath about a week and a half ago and has also been progressively getting more tired. He does not require oxygen at home. At baseline he states he is able to walk around his house unassisted but may get short of breath after walking across his living room. He denies any recent fevers, chills, night sweats, cough, or wheezing. He denies any other symptoms, no chest pain, palpitations, diarrhea, N/V, urinary symptoms. He knew he "felt anemic" but was trying to make it until his Oncology appt on Sunday but was so SOB he needed to come in the hospital. he feels greatly improved today and is breathing better with the 2 units of blood and diuresis. He is going for a tap this am for his pleural effusion but he declines a chest tube placement. CBC/BMP: 06/16/16 0500 06/16/16 0500 Significant Findings Laboratory Tests Test 06/14/16 06/15/16 06/15/16 06/15/16 21:25 09:55 11:05 16:59 White Blood Count 43.5 TH/MM3 25.8 TH/MM3 (4.0-11.0) (4.0-11.0) Red Blood Count 1.28 MIL/MM3 3.19 MIL/MM3 (4.50-5.90) (4.50-5.90) Hemoglobin 4.0 GM/DL 9.9 GM/DL 9.3 GM/DL (13.0-17.0) (13.0-17.0) (13.0-17.0) Hematocrit 13.7 % 31.8 % 30.4 % (39.0-51.0) (39.0-51.0) (39.0-51.0) Mean Corpuscular Volume 107.1 FL (80.0-100.0) Mean Corpuscular Hemoglobin 28.8 % 31.0 % Concent (32.0-36.0) (32.0-36.0) Red Cell Distribution Width 23.9 % 23.9 % (11.6-17.2) (11.6-17.2) Neutrophils (%) (Auto) 6.5 % (16.0-70.0) Lymphocytes (%) (Auto) 92.3 % (9.0-44.0) Lymphocytes # (Auto) 40.2 TH/MM3 (1.0-4.8) Prothrombin Time 13.9 SEC (9.8-11.6) Blood Urea Nitrogen 21 MG/DL (7-18) 19 MG/DL (7-18) Estimat Glomerular Filtration 62 ML/MIN (>89) 78 ML/MIN (>89) Rate Calcium Level 8.1 MG/DL 8.3 MG/DL (8.5-10.1) (8.5-10.1) Troponin I LESS THAN 0.02 NG/ML (0.02-0.05) B-Type Natriuretic Peptide 255 PG/ML (0-100) Carbon Dioxide Level 33.0 MEQ/L (21.0-32.0) Random Glucose 71 MG/DL (74-106) Iron Level 48 MCG/DL (65-175) Total Iron Binding Capacity 217 MCG/DL (250-450) Ferritin 839 NG/ML (26-388) Alkaline Phosphatase 247 U/L (45-117) Total Protein 5.7 GM/DL (6.4-8.2) Albumin 2.7 GM/DL (3.4-5.0) Folate GREATER THAN 20.0 NG/ML (3.1-17.5) Neutrophils % (Manual) 10 % (16-70) Lymphocytes % 89 % (9-44) Stomatocytes 1+ (NORMAL) Test 06/16/16 05:00 White Blood Count 25.3 TH/MM3 (4.0-11.0) Red Blood Count 2.99 MIL/MM3 (4.50-5.90) Hemoglobin 9.5 GM/DL (13.0-17.0) Hematocrit 29.9 % (39.0-51.0) Mean Corpuscular Hemoglobin 31.7 % Concent (32.0-36.0) Red Cell Distribution Width 24.5 % (11.6-17.2) Carbon Dioxide Level 34.0 MEQ/L (21.0-32.0) Blood Urea Nitrogen 22 MG/DL (7-18) Estimat Glomerular Filtration 79 ML/MIN (>89) Rate Calcium Level 8.0 MG/DL (8.5-10.1) Imaging Last Impressions Thoracentesis Ultrasound 06/15/16 0000 Signed Impressions: Service Date/Time: May 09:48 - CONCLUSION: Uncomplicated ultrasound guided thoracentesis with removal of 1.5 L of bloody fluid. Eitan Modi MD Chest X-Ray 06/15/16 0000 Signed Impressions: Service Date/Time: May 10:29 - CONCLUSION: 1. No pneumothorax is present following recent left thoracentesis. 2. Chronically elevated left hemidiaphragm with airspace opacity in the lower lung zones bilaterally. Eitan Modi MD PE at Discharge GENERAL: Well-nourished, well-developed patient. No acute distress. SKIN: Warm and dry. No rash. EYES: No scleral icterus. No injection or drainage. PERRLA. EOMI. HENT: Normocephalic. Atraumatic. MMM. NECK: No visible JVD or lymphadenopathy. CARDIOVASCULAR: Regular rate and rhythm RESPIRATORY: Clear to auscultation bilaterally GASTROINTESTINAL: Abdomen nondistended. MUSCULOSKELETAL: Strength grossly WNL. BACK: Without obvious deformity. NEURO/PSYCH: Afocal. Awake, alert, and oriented x3. Hospital Course Patient was admitted on 06/14/16 for acute shortness of breath and symptomatic anemia. He has a history of CLL and required blood transfusion. He also has a history of renal cell carcinoma with metastasis to the lungs, was found to have a pleural effusion due to the metastasis. He obtained a thoracentesis and quickly improved. Due to the anemia and GI was consulted and EGD and colonoscopy was performed. Once patient was determined to be stable he was discharged home with follow-up with his oncologist and PCP Pt Condition on Discharge: Stable Discharge Disposition: Discharge Home Discharge Instructions DIET: Follow Instructions for: Heart Healthy Diet Activities you can perform: Regular-No Restrictions Follow up Referrals: Gastroenterology - 2 Weeks with Tiana Jefferson MD Oncology - 06/20/[address] Corral PCP Follow-up - 2 Weeks with Martínez Pina MD R2 Continued Medications: Baclofen (Baclofen) 10 Mg Tab 10 MG PO TID PRN MUSCLE SPASM #30 Ref 0 TAB Carvedilol (Coreg) 3.125 Mg Tab 3.125 MG PO Q12HR Blood Pressure Management #60 TAB Digoxin (Digoxin) 0.125 Mg Tab 0.125 MG PO DAILY Heart #30 TAB Folic Acid (Folate) 1 Mg Tab 1 MG PO DAILY Vitamin #30 TAB Gabapentin (Neurontin) 300 Mg Cap 300 MG PO TID Neuropathy #90 CAP Hydrocodone-Acetaminophen (Hydrocodone-Acetaminophen) 5-325 mg Tab 1 TAB PO Q4H PRN pain #14 TAB Pravastatin (Pravachol) 40 Mg Tab 40 MG PO HS Cholesterol Management #30 TAB Rivaroxaban (Xarelto) 20 Mg Tab 20 MG PO DAILY PE #30 TAB Salmeterol Inh (Serevent Diskus Inh) 50 Mcg/Act Aero 50 MCG INH BID Broncospasm #1 INHALER Venlafaxine ER 24 HR (Effexor XR 24 HR) 75 Mg Cap 150 MG PO DAILY Depression Control #30 CAP Zolpidem (Ambien) 10 Mg Tab 10 MG PO HS PRN INSOMNIA #30 Ref 5 TAB Martínez Pina MD R2 Jun 16, 2016 10:41
[2016-06-16] MEDS: GABAPENTIN 300 MG CAP PO SCH ×2 (10:44→11:35)
[2016-06-16] MEDS ORDERED: PROPOFOL 200 MG/20 ML AMP IV ONE (10:50)
--- NOTE | 2016-06-16 11:10 | PD.PROCEDR ---
GI Procedure REFERRING PHYSICIAN Dr. Butler PROCEDURE PERFORMED EGD with biopsy followed by colonoscopy INDICATION FOR PROCEDURE Iron deficiency anemia and guaiac positive stools PROCEDURE: The procedure, risks and benefits were discussed with Mr. Bennett and informed consent was obtained. Anesthesia sedated him with Diprivan. He was placed in the left lateral decubitus position. EGD: The Pentax videoscope was introduced through the oropharynx and advanced to the second portion of the duodenum under direct visualization. Retroflexion was performed in the stomach. FINDINGS: Esophagus this appeared to be unremarkable and within normal limits The stomach there were 2 areas in the gastric body that were somewhat irregular and abnormal with superficial erosions biopsies were taken for further evaluation otherwise gastric mucosa was unremarkable The duodenum this was unremarkable random biopsies were taken for further evaluation Colonoscopy: The Pentax videoscope was introduced through the rectum and advanced to cecum where the ileocecal valve and appendiceal orifice were identified. Retroflexion was performed in the rectum. Colonic prep was poor FINDINGS: As the scope slowly withdrawn colonic mucosa was carefully inspected this was a limited examination due to poor prep but it was unremarkable for the most part there were very few diverticuli noted in the descending and sigmoid region retroflexion was unremarkable cells rectal examination ESTIMATED BLOOD LOSS: None SPECIMENS REMOVED: Gastric and duodenal COMPLICATIONS: None IMPRESSION: Erosive gastritis irregular gastric mucosa Poor colon prep limited examination PLAN: Case discussed with Dr. Pina Await biopsy Recommend PPI Avoid NSAIDs and aspirin Okay to resume anticoagulation Monitor hemoglobin closely and transfuse as needed Patient to be on iron supplementation Follow-up with GI in 2 weeks Recommend repeat EGD and colonoscopy in 2-3 months Okay for discharge from a GI standpoint Wilder Carnes MD Jun 16, 2016 11:10
[2016-06-16] MEDS ORDERED: PANT40TA3 PO (11:16)
[2016-06-16] MEDS: VENLAFAXINE HCL XR 75 MG CAP PO SCH (11:34)
[2016-06-16] MEDS: FOLIC ACID 1 MG TAB PO SCH (11:34)
[2016-06-16] MEDS: POTASSIUM CHLORIDE 20 MEQ CONTROLLED RELEASE TAB PO SCH (11:34)
--- NOTE | 2016-06-16 16:38 | PD.ONC.PN ---
Subjective Subjective Remarks (Late entry) Feeling better since the transfusion and thoracentesis. SOB improved. No CP. No GI bleeding. Objective Data Date Time Temp Pulse Resp B/P Pulse Ox O2 Delivery O2 Flow Rate FiO2 06/16/16 11:17 63 16 104/53 100 06/16/16 11:11 66 16 111/62 95 06/16/16 11:05 97.5 70 14 96/65 96 06/16/16 09:47 96.8 89 17 117/73 96 06/16/16 08:31 92 21 06/16/16 08:00 96.6 66 18 147/82 95 06/16/16 04:00 96.5 89 17 117/73 96 06/16/16 00:00 96.2 65 17 115/74 97 06/15/16 21:45 98 Nasal Cannula 2.00 06/15/16 20:00 96.3 60 17 131/79 98 06/16/16 06/16/16 06/16/16 07:00 15:00 23:00 Intake Total 0 ml 50 ml Balance 0 ml 50 ml Result Diagram: 06/16/16 0500 06/16/16 0500 Laboratory Results Laboratory Tests Test 06/15/16 06/16/16 16:59 05:00 Hemoglobin 9.3 GM/DL 9.5 GM/DL Hematocrit 30.4 % 29.9 % White Blood Count 25.3 TH/MM3 Red Blood Count 2.99 MIL/MM3 Mean Corpuscular Volume 100.0 FL Mean Corpuscular Hemoglobin 31.7 PG Mean Corpuscular Hemoglobin 31.7 % Concent Red Cell Distribution Width 24.5 % Platelet Count 221 TH/MM3 Mean Platelet Volume 9.4 FL Sodium Level 140 MEQ/L Potassium Level 4.0 MEQ/L Chloride Level 99 MEQ/L Carbon Dioxide Level 34.0 MEQ/L Anion Gap 7 MEQ/L Blood Urea Nitrogen 22 MG/DL Creatinine 0.96 MG/DL Estimat Glomerular Filtration 79 ML/MIN Rate Random Glucose 78 MG/DL Calcium Level 8.0 MG/DL Culture Results Microbiology Date/Time Procedure Status Source Growth 06/14/16 21:25 Aerobic Blood Culture - Preliminary Resulted Blood Peripheral NO GROWTH IN 2 DAYS 06/14/16 21:25 Anaerobic Blood Culture - Preliminary Resulted Blood Peripheral NO GROWTH IN 2 DAYS 06/14/16 21:30 Aerobic Blood Culture - Preliminary Resulted Blood Peripheral NO GROWTH IN 2 DAYS 06/14/16 21:30 Anaerobic Blood Culture - Preliminary Resulted Blood Peripheral NO GROWTH IN 2 DAYS Objective Remarks GENERAL: Well-nourished, well-developed patient. SKIN: Warm and dry. HEAD: Normocephalic. EYES: No scleral icterus. No injection or drainage. NECK: Supple, trachea midline. No JVD or lymphadenopathy. LYMPHATIC: No adenopathy. CARDIOVASCULAR: Regular rate and rhythm without murmurs. RESPIRATORY: Breath sounds decreased lung bases. No accessory muscle use. GASTROINTESTINAL: Abdomen soft, non-tender, nondistended. EXTREMITIES: No cyanosis, or edema. MUSCULOSKELETAL: Adequate muscle tone. NEUROLOGICAL: No obvious focal deficit. Awake, alert, and oriented x3. PSYCHIATRIC: Appropriate mood and affect; insight and judgment normal. Assessment/Plan Assessment 1. Severe symptomatic anemia. He has had chronic anemia likely due to his metastatic renal cell carcinoma as well as his previous cancer treatment. During his last hospital stay, his stool occult blood test was positive. I think he may also have occult GI bleed given that he is on anticoagulation with Xarelto. He denies any gross GI bleed at this time. His hemoglobin was 9 about a week ago and has now dropped down to 4. 06/16 Hgb trended up and remain stable after transfusion. He is going to have EGD/colonoscopy today. 2. Shortness of breath due to severe anemia. He also has history of bilateral pleural effusion, left greater than right. His chest x-ray again showed bilateral pleural effusion, but stable compared to March. He is supposed to go to radiology for thoracentesis of the left lung. He has known malignant pleural effusion from the metastatic renal cell carcinoma. 06/16 Improved Had thoracentesis with removal 1.5L from left lung 06/15. 3. Metastatic renal cell carcinoma first diagnosed in 2013 status post left nephrectomy. He later developed metastatic pulmonary nodule. He was treated with Votrient but recently has progression of disease. He also has known history of malignant pleural effusion due to the metastatic renal cell carcinoma. He was started on nivolumab recently. He has tolerated it well so far, still a little too early to determine if he has responded to treatment. 4. Chronic lymphocytic leukemia. He is currently being monitored. His baseline white blood cell count was around between 20,000 to 30,000. His platelet count remains normal. He has no clear evidence of hemolysis. Plan PLAN 1. Await EGD/colonoscopy. 2. Can be d/c when clear by GI. 3. Can restart Xarelto once cleared by GI. 4. F/u oncology clinic. Waqas Corral MD Jun 16, 2016 16:38
== END 2016-06-16 13:59 | disposition home or self-care (01) | DRG 841 ==
LOC: NEPE 20:17 → NEDA 22:50 → HOCA 06-15 01:48
PROVIDERS: ADMIT Family Medicine; ATTEND Family Medicine
PROC: 30233N1 Transfusion of Nonautologous Red Blood Cells into Peripheral Vein, Percutaneous Approach (ICD-10-PCS; principal; 2016-06-14)
PROC: 0W9B3ZZ Drainage of Left Pleural Cavity, Percutaneous Approach (ICD-10-PCS; 2016-06-15)
PROC: 0DB98ZX Excision of Duodenum, Via Natural or Artificial Opening Endoscopic, Diagnostic (ICD-10-PCS; 2016-06-16)
PROC: 0DB68ZX Excision of Stomach, Via Natural or Artificial Opening Endoscopic, Diagnostic (ICD-10-PCS; 2016-06-16)
PROC: 0DJD8ZZ Inspection of Lower Intestinal Tract, Via Natural or Artificial Opening Endoscopic (ICD-10-PCS; 2016-06-16)
DX: C91.10 Chronic lymphocytic leukemia of B-cell type not having achieved remission (principal); C78.00 Secondary malignant neoplasm of unspecified lung; J91.0 Malignant pleural effusion; I11.0 Hypertensive heart disease with heart failure; I48.0 Paroxysmal atrial fibrillation; N19 Unspecified kidney failure; D50.8 Other iron deficiency anemias; E11.9 Type 2 diabetes mellitus without complications; K29.60 Other gastritis without bleeding; D50.9 Iron deficiency anemia, unspecified; D53.9 Nutritional anemia, unspecified; E78.00 Pure hypercholesterolemia, unspecified; Z85.528 Personal history of other malignant neoplasm of kidney; Z90.5 Acquired absence of kidney; K21.9 Gastro-esophageal reflux disease without esophagitis; Z79.01 Long term (current) use of anticoagulants; R51 Headache; Z87.891 Personal history of nicotine dependence; Z86.718 Personal history of other venous thrombosis and embolism; K44.9 Diaphragmatic hernia without obstruction or gangrene; E78.1 Pure hyperglyceridemia
CPT/HCPCS: 32555; 36430; 71010; 80048; 80053; 82607; 82728; 82746; 83540; 83550; 83615; 83880; 84484; 85007; 85014; 85018; 85025; 85027; 85610; 86850; 86900; 86901; 86920; 87040; 88305; 88307; 88342; 88361; 93005; 96374; C1729; J1940; J2405; J7050; P9016